=== PATIENT | female | born 1950 | race Caucasian/White ===

== ENCOUNTER 2019-03-31 12:29 | Inpatient (IN) | payer MEDICAID, OTHER ==
[~2019-03-31] VITALS: Ht 175.3 cm; Wt 85.7 kg
[~2019-03-31 12:29] MED LIST: ACET325T9 PO; CALC-450 PO; CHOL100014 PO; DABI150C PO; DOCU-109 PO; FAMO-63 PO; LEVO50TA PO; LEVO750T31 PO; METO25TA4 PO; RISP4TAB PO
[2019-03-31 13:27] LABS: BASO % 0 % (0-3); EOS # 0.1 x10^3/uL (0.0-0.7); EOS % 1 % (0-3); HEMATOCRIT 35.2 % (36.0-47.0); HEMOGLOBIN 12.1 g/dL (12.0-15.5); LYMPH # 1.6 x10^3/uL (1.0-4.8); LYMPH % 21 % (24-48); MEAN CORPUSCULAR HEMOGLOBIN 34 pg (25-35); MEAN CORPUSCULAR HGB CONC 35 g/dL (31-37); MEAN CORPUSCULAR VOLUME 97 fL (79-100); MONO # 0.7 x10^3/uL (0.0-1.1); MONO % 9 % (0-9); NEUT # 5.4 x10^3/uL (1.8-7.7); NEUT % 70 % (31-73); PLATELET COUNT 239 x10^3/uL (140-400); RED BLOOD COUNT 3.61 x10^6/uL (3.50-5.40); RED CELL DISTRIBUTION WIDTH 13.2 % (11.5-14.5); WHITE BLOOD COUNT 7.8 x10^3/uL (4.0-11.0)
[2019-03-31] MEDS ORDERED: IPRATRPIUM/ALBUTEROL 0.5/2.5MG 3 ML NEBU. NEB ONE (13:30)
[2019-03-31] MEDS ORDERED: methylPREDNISolone SOD SUCC PF 125 MG/2 ML VIAL. IV ONE (13:30)
--- NOTE | 2019-03-31 13:30 | RAD ---
Single view of the chest. 03/31/2019 12:51 PM Indication: Short of breath. Evaluate for pneumothorax. Comparison chest radiograph April 06, 2016 Findings: No pneumothorax, pleural effusion, or focal consolidative infiltrate is identified. Heart size is within normal limits. Bony thorax is intact. IMPRESSION: No radiographic evidence of acute cardiopulmonary process Electronically signed by: Joshua Bender MD (03/31/2019 1:27 PM) [facility]
[2019-03-31 13:33] LABS: CALCIUM 9.2 mg/dL (8.5-10.1); CREATININE 0.9 mg/dL (0.6-1.0); GFR 62.3; POTASSIUM 4.2 mmol/L (3.5-5.1)
[2019-03-31 13:34] LABS: PROTHROMBIN TIME PATIENT 14.1 SEC (11.7-14.0)
[2019-03-31 13:39] LABS: ALBUMIN 3.7 g/dL (3.4-5.0); ALBUMIN/GLOBULIN RATIO 1.2 (1.0-1.7); TOTAL BILIRUBIN 0.3 mg/dL (0.2-1.0); TOTAL PROTEIN 6.8 g/dL (6.4-8.2)
[2019-03-31] MEDS ORDERED: IOHEXOL 350 MG/ML 100 ML VIAL. IV ONE (14:00)
[2019-03-31] MEDS ORDERED: CONTRAST GIVEN. MC PRN (14:00)
--- NOTE | 2019-03-31 14:08 | EKG ---
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
[2019-03-31] MEDS ORDERED: HEPARIN for IV BOLUS 10,000 UNIT/10 ML VIAL. IV PRN ×2 (14:15)
--- NOTE | 2019-03-31 14:55 | RAD ---
PQRS Compliance Statement: One or more of the following individualized dose reduction techniques were utilized for this examination: 1. Automated exposure control 2. Adjustment of the mA and/or kV according to patient size 3. Use of iterative reconstruction technique CT angiography chest with contrast 03/31/2019 12:51 PM INDICATION: Shortness of breath. History of known DVT. COMPARISON: None available TECHNIQUE: Axial CT images of the chest were obtained after the intravenous administration of nonionic contrast. Coronal and sagittal reformats are provided. Maximum intensity projection images of the thoracic vasculature are provided. FINDINGS: The thyroid gland is normal in appearance. There are no pathologically enlarged axillary, mediastinal or hilar lymph nodes. The heart size is within normal limits. No significant pericardial effusion. Thoracic aorta is normal in course and caliber. There is adequate opacification of the pulmonary arterial system. There there are no filling defects within the pulmonary arterial system to suggest acute or chronic pulmonary embolus. Retroesophageal course of the right common carotid artery is noted. Centrilobular and paraseptal emphysema is noted. Respiratory motion limits evaluation for micronodules. Bronchial wall thickening is compatible with nonspecific bronchitis. There are no suspicious solid noncalcified pulmonary nodules. There are no pulmonary infiltrates. There are no pleural effusions. No pulmonary vascular congestion or pneumothorax. Visualized portions of the upper abdomen are within normal limits. No suspicious osseous lesions are visualized. IMPRESSION: There is no evidence for acute or chronic pulmonary embolism. Mild centrilobular and paraseptal pulmonary emphysema. Electronically signed by: Mignon Romero MD (03/31/2019 2:52 PM) [facility]
[2019-03-31] MEDS ORDERED: DOXYCYCLINE HYCLATE 100 MG in IV DEXTROSE 5% 100ML 100 ML IV ONE (15:15)
[2019-03-31] MEDS: HEPARIN 25,000UTS/500ML PREMIX 500 ML IV PRN (15:35)
[2019-03-31] MEDS ORDERED: HEPARIN for IV BOLUS 10,000 UNIT/10 ML VIAL. IV ONE (15:45)
--- NOTE | 2019-03-31 16:00 | PHYS DOC ---
Past Medical History Past Medical History: A-Fib, Arthritis, COPD, GERD, Hypothyroid, Schizophrenia Past Surgical History: Other Additional Past Surgical Histo: cataracts, unknown sx Alcohol Use: None Drug Use: None Adult General Chief Complaint Chief Complaint: SHORTNESS OF BREATH HPI HPI Patient is a 68 year old f with cc of present with chief complaint of leg swelling and shortness of breath patient was recently diagnosed with a DVT at her nursing facility I had the ultrasound report sent by the staff over there it shows a deep vein thrombosis involving the left posterior tibial vein dated March 31, 2019 at 11:19 AM this was just done so I did not repeat it. Patient also short of breath does have a history of COPD but shortness of breath increased over the last 24-hour she tells me she is coughing history is somewhat limited by the underlying schizophrenia she is coming from [facility] denies chest pain or fever symptoms are slowly worsening with time worse with exertion she tells me Review of Systems Review of Systems Constitutional: Denies fever or chills [] Eyes: Denies change in visual acuity, redness, or eye pain [] HENT: Fernando GI: Denies abdominal pain, nausea, vomiting, bloody stools or diarrhea [] : Denies dysuria or hematuria [] Musculoskeletal: Denies back pain or joint pain [] Integument: Denies rash or skin lesions [] Neurologic: Denies headache, focal weakness or sensory changes [] All other systems were reviewed and found to be within normal limits, except as documented in this note. Current Medications Current Medications Current Medications Medications (Trade) Dose Ordered Sig/Cindy Start Time Stop Time Status Last Admin Dose Admin Albuterol/ Ipratropium (Duoneb) 3 ml RTQID 03/31/19 16:00 04/01/19 15:59 Doxycycline Hyclate 100 mg/ Dextrose 100 ml @ 50 mls/hr 1X ONCE 03/31/19 15:15 03/31/19 17:14 Heparin Sodium (Porcine) (Heparin Sodium) 6,300 unit 1X ONCE 03/31/19 15:45 03/31/19 15:46 DC 03/31/19 15:37 6,300 UNIT Heparin Sodium/ Dextrose 500 ml @ 25.1 mls/hr CONT PRN 03/31/19 14:15 03/31/19 15:37 25.1 MLS/HR Info (CONTRAST GIVEN -- Rx MONITORING) 1 each PRN DAILY PRN 03/31/19 14:00 04/02/19 13:59 Iohexol (Omnipaque 350 Mg/ml) 100 ml 1X ONCE 03/31/19 14:00 03/31/19 14:01 DC 03/31/19 14:02 100 ML Methylprednisolone Sodium Succinate (SOLU-Medrol 125MG VIAL) 125 mg 1X ONCE 03/31/19 13:30 03/31/19 13:31 DC 03/31/19 13:16 125 MG Allergies Allergies Allergies Coded Allergies Type Severity Reaction Last Updated Verified clozapine Allergy Severe 04/06/16 Yes Physical Exam Physical Exam Constitutional: Well developed, well nourished, mild distress HENT: Normocephalic, atraumatic, bilateral external ears normal, oropharynx moist, no oral exudates, nose normal. [] Eyes: PERRLA, EOMI, conjunctiva normal, no discharge. [] Neck: Normal range of motion, no tenderness, supple, no stridor. [] Cardiovascular: Irregular with mild tachycardia no definite murmurs Lungs & Thorax: Diffuse wheezing bilaterally patient is speaking short sentences Abdomen: Bowel sounds normal, soft, no tenderness, no masses, no pulsatile masses. [] Skin: Warm, dry, no erythema, no rash. [] Back: No tenderness, no CVA tenderness. [] Extremities: No tenderness, no cyanosis, no clubbing, ROM intact, left greater than right lower extremity edema Neurologic: Alert and oriented X 3, normal motor function, normal sensory function, no focal deficits noted. [] Psychologic: AFFECT Current Patient Data Vital Signs Vital Signs Date Time Temp Pulse Resp B/P (MAP) Pulse Ox O2 Delivery O2 Flow Rate FiO2 03/31/19 13:41 97 Room Air 03/31/19 12:30 98.1 105 24 164/99 (120) 98.1 Lab Values Laboratory Tests Test 03/31/19 13:02 White Blood Count 7.8 x10^3/uL (4.0-11.0) Red Blood Count 3.61 x10^6/uL (3.50-5.40) Hemoglobin 12.1 g/dL (12.0-15.5) Hematocrit 35.2 % (36.0-47.0) L Mean Corpuscular Volume 97 fL (79-100) Mean Corpuscular Hemoglobin 34 pg (25-35) Mean Corpuscular Hemoglobin Concent 35 g/dL (31-37) Red Cell Distribution Width 13.2 % (11.5-14.5) Platelet Count 239 x10^3/uL (140-400) Neutrophils (%) (Auto) 70 % (31-73) Lymphocytes (%) (Auto) 21 % (24-48) L Monocytes (%) (Auto) 9 % (0-9) Eosinophils (%) (Auto) 1 % (0-3) Basophils (%) (Auto) 0 % (0-3) Neutrophils # (Auto) 5.4 x10^3/uL (1.8-7.7) Lymphocytes # (Auto) 1.6 x10^3/uL (1.0-4.8) Monocytes # (Auto) 0.7 x10^3/uL (0.0-1.1) Eosinophils # (Auto) 0.1 x10^3/uL (0.0-0.7) Basophils # (Auto) 0.0 x10^3/uL (0.0-0.2) Prothrombin Time 14.1 SEC (11.7-14.0) H Prothrombin Time INR 1.1 (0.8-1.1) Sodium Level 132 mmol/L (136-145) L Potassium Level 4.2 mmol/L (3.5-5.1) Chloride Level 95 mmol/L (98-107) L Carbon Dioxide Level 29 mmol/L (21-32) Anion Gap 8 (6-14) Blood Urea Nitrogen 10 mg/dL (7-20) Creatinine 0.9 mg/dL (0.6-1.0) Estimated GFR (Cockcroft-Gault) 62.3 BUN/Creatinine Ratio 11 (6-20) Glucose Level 134 mg/dL (70-99) H Calcium Level 9.2 mg/dL (8.5-10.1) Total Bilirubin 0.3 mg/dL (0.2-1.0) Aspartate Amino Transferase (AST) 21 U/L (15-37) Alanine Aminotransferase (ALT) 31 U/L (14-59) Alkaline Phosphatase 137 U/L (46-116) H Troponin I Quantitative < 0.017 ng/mL (0.000-0.055) CE-Chr-S-Type Natriuretic Peptide 149 pg/mL (0-124) H Total Protein 6.8 g/dL (6.4-8.2) Albumin 3.7 g/dL (3.4-5.0) Albumin/Globulin Ratio 1.2 (1.0-1.7) Laboratory Tests 03/31/19 13:02 Laboratory Tests 03/31/19 13:02 EKG EKG []EKG shows a A. fib most likely rate of 96 somewhat poor baseline no obvious ischemic changes were noted QTC 453 Radiology/Procedures Radiology/Procedures IMPRESSION: There is no evidence for acute or chronic pulmonary embolism. Mild centrilobular and paraseptal pulmonary emphysema. Electronically signed by: Marvin Bui MD (03/31/2019 2:52 PM) [facility] DICTATED and SIGNED BY: MARVIN BUI MD DATE: 03/31/19 1458 [] Impressions: CT scan was negative for pulmonary embolism Course & Med Decision Making Course & Med Decision Making Pertinent Labs and Imaging studies reviewed. (See chart for details) []68-year-old female presenting with shortness of breath history of COPD patient did have wheezing on examination we treated that she was somewhat improved stable on room air oxygenation did have mild atrial fibrillation with RVR but on reevaluation that actually was improved down to about 100 101 low 100s without treatment. Did have a DVT on exam and by ultrasound diagnosed earlier today we did a CT scan quite readily in the emergency room I had high concern for pulmonary embolism but that was negative acute. Patient is placed on a heparin drip anyway to treat the DVT and will be admitted to the service of Dr. zurita discussed case with him at the time of pending CT scan. Dragon Disclaimer Dragon Disclaimer This electronic medical record was generated, in whole or in part, using a voice recognition dictation system. Departure Departure Impression: Primary Impression: Atrial fibrillation with RVR Additional Impressions: Chronic obstructive airway disease Deep venous thrombosis Disposition: ADMITTED INPATIENT Admitting Physician: FAROOQ Condition: STABLE Referrals: REID SHAW MD (PCP) Problem Qualifiers CECILY BEE MD Mar 31, 2019 16:00
[2019-03-31] MEDS: IPRATRPIUM/ALBUTEROL 0.5/2.5MG 3 ML NEBU. NEB SCH ×2 (16:31→19:55)
--- NOTE | 2019-03-31 19:29 | HP ---
ADMIT DATE: 03/31/2019 CHIEF COMPLAINT: Shortness of breath. HISTORY OF PRESENT ILLNESS: The patient is a pleasant 68-year-old female who presented to the ER with shortness of breath. She also has some leg swelling. She was recently diagnosed with a DVT at her facility. She [facility] in a detention. She does have a history of COPD and schizophrenia. While in the ER, she was noted to be in AFib with RVR and COPD exacerbation and we are going to admit the patient and consult Cardiology and Pulmonary. PAST MEDICAL HISTORY: Schizophrenia, atrial fibrillation, arthritis, COPD, GERD, hypothyroid, and cataracts. ALLERGIES: CLOZAPINE. FAMILY HISTORY: Diabetes. SOCIAL HISTORY: She does not drink, smoke or take drugs. She lives at a facility. MEDICATIONS: Reviewed, please refer to the MRAD. REVIEW OF SYSTEMS: GENERAL: No history of weight change, weakness or fevers. SKIN: No bruising, hair changes or rashes. EYES: No blurred, double or loss of vision. NOSE AND THROAT: No history of nosebleeds, hoarseness or sore throat. HEART: No history of palpitations, chest pain or shortness of breath on exertion. LUNGS: She complains of shortness of breath. GASTROINTESTINAL: Denies changes in appetite, nausea, vomiting, diarrhea or constipation. GENITOURINARY: No history of frequency, urgency, hesitancy or nocturia. NEUROLOGIC: Denies history of numbness, tingling, tremor or weakness. PSYCHIATRIC: No history of panic, anxiety or depression. ENDOCRINE: No history of heat or cold intolerance, polyuria or polydipsia. EXTREMITIES: Denies muscle weakness, joint pain, pain on walking or stiffness. PHYSICAL EXAMINATION: VITALS: Within normal limits and are stable. GENERAL: No apparent distress. Alert and oriented. HEENT: Head is normocephalic, atraumatic, pupils were equally round and reactive to light and accommodation. NECK: Supple, no JVD, no thyromegaly was noted. LUNGS: She has decreased breath sounds and some wheezing. HEART: RRR, S1, S2 present. Peripheral pulses intact, no obvious murmurs were noted. ABDOMEN: Soft, nontender. Positive bowel sounds no organomegaly, normal bowel sounds. EXTREMITIES: Without any cyanosis, clubbing, or edema. Pedal pulses intact, Homans sign is negative. NEUROLOGIC: Normal speech, normal tone. A & O x3, moves all extremities, no obvious focal deficits. PSYCHIATRIC: Normal affect, normal mood. Stable. SKIN: No ulcerations or rashes, good skin turgor, no jaundice. VASCULAR: Good capillary refill, neurovascular bundle appears to be intact. LABORATORY DATA: White count is normal. Sodium is 132. Troponin is 0. BNP 149. CT of the chest shows no PE, but they do mention some COPD. Chest x-ray shows no acute disease, but clinically she seems to have pneumonia. EKG shows AFib with RVR. ASSESSMENT AND PLAN: Atrial fibrillation with rapid ventricular rate with, chronic obstructive pulmonary disease, possible clinical pneumonia, and deep vein thrombosis. The patient has been admitted. We will consult Pulmonary and Cardiology. Continue her home meds, cardiac monitoring, serial enzymes, and serial EKGs. Deep vein thrombosis prophylaxis. Full code. CARLOS A GONZALEZ DO DR: [id number]/cruzito JOB#: [id number] / [id number]
[2019-03-31] MEDS ORDERED: dilTIAZem INJ 125 MG in IV DEXTROSE 5% 100ML 100 ML IV STA (19:33)
[2019-03-31] MEDS ORDERED: dilTIAZem IV PUSH 25 MG/5 ML VIAL IVP ONE (19:45)
[2019-03-31 21:04] VITALS: BP 152/84
[2019-03-31] MEDS ORDERED: RISP3TAB23 PO (22:01)
[2019-03-31] MEDS ORDERED: MULT1TAB52 PO (22:08)
[2019-03-31] MEDS ORDERED: [UNRECOGNIZED DRUG - CODE] PO (22:08)
[2019-03-31 23:13] VITALS: BP 122/68
[2019-04-01] VITALS (11 sets, daily range): BP systolic 92–179; BP diastolic 51–93
[2019-04-01] MEDS ORDERED: DOCUSATE SODIUM 100 MG CAPSULE. PO PRN (00:30)
[2019-04-01] MEDS: risperiDONE 1 MG TABLET. PO SCH ×3 (00:36→21:11)
[2019-04-01] MEDS: LEVOTHYROXINE 50 MCG TABLET PO SCH ×2 (00:36→21:10)
[2019-04-01] MEDS: FAMOTIDINE 20 MG TABLET. PO SCH ×2 (00:36→21:10)
--- NOTE | 2019-04-01 05:35 | NUR ---
Patient arrived to unit around 2054 accompanied by ED nurse. Patient reports no pain at this time. Resting comfortably on RA. Assessment complete- patient does have an audible wheeze on expiration in all lobes, patient stated that this has been going on for a couple days. VS stable. Call light in reach. Bed in low locked position, will continue to monitor.
[2019-04-01] MEDS: IPRATRPIUM/ALBUTEROL 0.5/2.5MG 3 ML NEBU. NEB SCH ×3 (07:31→19:57)
--- NOTE | 2019-04-01 08:09 | NUR ---
Chart review done. Spoke w/ nsg who indicated pt not appropriate today due to DVT but may benefit from PT/OT Eval and Treat when medically appropriate. Addendum: 04/01/19 at 0810 by SHALOM BUITRAGO OT Amended: Links added.
[2019-04-01] MEDS: MULTIVITAMIN with MINERAL TABLET. PO SCH (09:00)
[2019-04-01] MEDS: ACETAMINOPHEN 325 MG TABLET. PO PRN ×2 (09:00→23:30)
[2019-04-01] MEDS: CHOLECALCIFEROL (VITAMIN D3) 1,000 UNIT TABLET PO SCH (09:01)
[2019-04-01] MEDS: CALCIUM CARB/VIT D3 500/200 TABLET. PO SCH ×3 (09:01→16:29)
--- NOTE | 2019-04-01 10:28 | PDOC2 ---
NATALIE SCHMIDT SAFETY INVESTIGATOR 04/01/19 1028: CARDIAC CONSULT DATE OF CONSULT Date of Consult DATE: 04/01/19 TIME: 10:13 REASON FOR CONSULT Reason for Consult: AFIB with RVR REFERRING PHYSICIAN Referring Physician: Dr. Lance SOURCE Source: Chart review, Patient HISTORY OF PRESENT ILLNESS HISTORY OF PRESENT ILLNESS This is a 68 yo female who presented from nursing facility secondary to shortness of breath and leg swelling with diagnosis of DVT involving the left posterior tibial vein yesterday. Patient is a poor historian and denies any shortness of breath. States that she cut the circulation off in her left and ca used a blood clot. Does have a history AFIB. Per med list, is on metoprolol 12.5 mg BID and has PRN Cardizem CD 120mg. Also on Pradaxa. Unclear if she has been taking her medications recently. Denies any chest pain, palpitations, dizziness, diaphoresis, or nausea/vomiting. PAST MEDICAL HISTORY Cardiovascular: AFIB Pulmonary: COPD GI: GERD Psych: Schizophrenia Musculoskeletal: Osteoarthritis Endocrine: Hyperthyroidism PAST SURGICAL HISTORY Past Surgical History: No pertinent history SOCIAL HISTORY Smoke: No ALCOHOL: none Drugs: None Lives: [facility] CURRENT MEDICATIONS CURRENT MEDICATIONS Current Medications Medications (Trade) Dose Ordered Sig/Cindy Route PRN Reason Start Time Stop Time Status Last Admin Dose Admin Albuterol/ Ipratropium (Duoneb) 3 ml 1X ONCE NEB 03/31/19 13:30 03/31/19 13:31 DC 03/31/19 13:39 Methylprednisolone Sodium Succinate (SOLU-Medrol 125MG VIAL) 125 mg 1X ONCE IV 03/31/19 13:30 03/31/19 13:31 DC 03/31/19 13:16 Iohexol (Omnipaque 350 Mg/ml) 100 ml 1X ONCE IV 03/31/19 14:00 03/31/19 14:01 DC 03/31/19 14:02 Heparin Sodium/ Dextrose 500 ml @ 25.1 mls/hr CONT PRN IV SEE COMMENTS 03/31/19 14:15 03/31/19 15:37 Heparin Sodium (Porcine) (Heparin Sodium) 6,300 unit 1X ONCE IV 03/31/19 15:45 03/31/19 15:46 DC 03/31/19 15:37 Doxycycline Hyclate 100 mg/ Dextrose 100 ml @ 50 mls/hr 1X ONCE IV 03/31/19 15:15 03/31/19 17:14 DC 03/31/19 15:58 Albuterol/ Ipratropium (Duoneb) 3 ml RTQID NEB 03/31/19 16:00 04/01/19 15:59 04/01/19 07:31 Diltiazem HCl (Cardizem Iv Push) 20 mg 1X ONCE IVP 03/31/19 19:45 03/31/19 19:46 DC 03/31/19 19:49 Diltiazem HCl 125 mg/Dextrose 125 ml @ 5 mls/hr TITRATE STAT IV 03/31/19 19:33 04/01/19 20:32 03/31/19 20:26 Acetaminophen (Tylenol) 650 mg PRN Q6HRS PRN PO MILD PAIN 1-3 04/01/19 00:30 04/01/19 09:03 Famotidine (Pepcid) 20 mg HS PO 04/01/19 01:00 04/01/19 00:37 Levothyroxine Sodium (Synthroid) 50 mcg HS PO 04/01/19 01:00 04/01/19 00:37 Calcium/Vitamin D (Oscal D 500mg/ 200uts) 1 tab TIDWMEALS PO 04/01/19 08:00 04/01/19 09:03 Vitamin D (Vitamin D3) 1,000 unit DAILY PO 04/01/19 09:00 04/01/19 09:03 Multivitamins (Thera M Plus) 1 tab DAILY PO 04/01/19 09:00 04/01/19 09:03 Risperidone (RisperDAL) 3 mg BID PO 04/01/19 01:00 04/01/19 09:03 ALLERGIES ALLERGIES: Coded Allergies: clozapine (Verified Allergy, Severe, 04/06/16) ROS Review of System 14 point ROS conducted with pertinent positives noted above in HPI. PHYSICAL EXAM General: Alert, Cooperative, No acute distress HEENT: Atraumatic, Mucous membr. moist/pink Lungs: Clear to auscultation, Other (diminished bases) Heart: Regular rate, Normal S1, Normal S2 Abdomen: Soft, No tenderness Extremities: No edema, Normal pulses Skin: No breakdown, No significant lesion Neuro: Normal speech, Sensation intact Psych/Mental Status: Mood NL MUSCULOSKELETAL: Osteoarthritic changes both hands VITALS/I&O VITALS/I&O: Vital Signs Date Time Temp Pulse Resp B/P (MAP) Pulse Ox O2 Delivery O2 Flow Rate FiO2 04/01/19 07:33 95 Room Air 04/01/19 07:00 98.0 92 20 119/68 (85) 98.0 I & O 03/31/19 03/31/19 04/01/19 15:00 23:00 07:00 Intake Total 100 ml 1820 ml Output Total 550 ml 850 ml Balance -450 ml 970 ml LABS Lab: Laboratory Tests Test 03/31/19 13:02 04/01/19 08:00 White Blood Count 7.8 x10^3/uL (4.0-11.0) Red Blood Count 3.61 x10^6/uL (3.50-5.40) Hemoglobin 12.1 g/dL (12.0-15.5) Hematocrit 35.2 % (36.0-47.0) L Mean Corpuscular Volume 97 fL (79-100) Mean Corpuscular Hemoglobin 34 pg (25-35) Mean Corpuscular Hemoglobin Concent 35 g/dL (31-37) Red Cell Distribution Width 13.2 % (11.5-14.5) Platelet Count 239 x10^3/uL (140-400) Neutrophils (%) (Auto) 70 % (31-73) Lymphocytes (%) (Auto) 21 % (24-48) L Monocytes (%) (Auto) 9 % (0-9) Eosinophils (%) (Auto) 1 % (0-3) Basophils (%) (Auto) 0 % (0-3) Neutrophils # (Auto) 5.4 x10^3/uL (1.8-7.7) Lymphocytes # (Auto) 1.6 x10^3/uL (1.0-4.8) Monocytes # (Auto) 0.7 x10^3/uL (0.0-1.1) Eosinophils # (Auto) 0.1 x10^3/uL (0.0-0.7) Basophils # (Auto) 0.0 x10^3/uL (0.0-0.2) Prothrombin Time 14.1 SEC (11.7-14.0) H Prothrombin Time INR 1.1 (0.8-1.1) Sodium Level 132 mmol/L (136-145) L Potassium Level 4.2 mmol/L (3.5-5.1) Chloride Level 95 mmol/L (98-107) L Carbon Dioxide Level 29 mmol/L (21-32) Anion Gap 8 (6-14) Blood Urea Nitrogen 10 mg/dL (7-20) Creatinine 0.9 mg/dL (0.6-1.0) Estimated GFR (Cockcroft-Gault) 62.3 BUN/Creatinine Ratio 11 (6-20) Glucose Level 134 mg/dL (70-99) H Calcium Level 9.2 mg/dL (8.5-10.1) Total Bilirubin 0.3 mg/dL (0.2-1.0) Aspartate Amino Transferase (AST) 21 U/L (15-37) Alanine Aminotransferase (ALT) 31 U/L (14-59) Alkaline Phosphatase 137 U/L (46-116) H Troponin I Quantitative < 0.017 ng/mL (0.000-0.055) GR-Bdz-Q-Type Natriuretic Peptide 149 pg/mL (0-124) H Total Protein 6.8 g/dL (6.4-8.2) Albumin 3.7 g/dL (3.4-5.0) Albumin/Globulin Ratio 1.2 (1.0-1.7) Heparin Anti-Xa Act, Unfractionated 1.03 IU/mL (0.30-0.70) H Laboratory Tests 03/31/19 13:02 Laboratory Tests 03/31/19 13:02 ASSESSMENT/PLAN ASSESSMENT/PLAN 1. AFIB with RVR. On Cardizem gtt. On Pradaxa at facility 2. LLE DVT; diagnosed 03/31/19. On heparin gtt. 3. Dyspnea; AFIB with RVR likely contributor. Doubt overt HF. Now resolved 4. COPD 5. Hypothyroidism 5. Schizophrenia Recommendations Resume metoprolol. Increase for better rate control Titrate off Cardizem gtt continue anticoagulation therapy. TSH level Will need to verify with nursing facility that patient has been compliant with medications as she has a DVT reportedly on OAC. Consider warfarin for OAC if patient has been compliant with Pradaxa HARRISON BROCK MD 04/01/19 193: CARDIAC CONSULT ASSESSMENT/PLAN ASSESSMENT/PLAN Patient seen and examined. Agree with above nurse practitioner note. Continue rate control for her atrial fibrillation. We will need to confirm her medication list because if she truly had a DVT on oral anticoagulation she may need further evaluation by hematology. Would not be aggressive given that she is rate controlled and not having any acute problems. Continue supportive care. EF is preserved. Diagnostic specificity for tibial vein DVT is low, will need to confirm from her skilled nursing. NATALIE SCHMIDT APRN Apr 01, 2019 10:28 HARRISON BROCK MD Apr 01, 2019 19:38
--- NOTE | 2019-04-01 11:24 | PDOC ---
PROGRESS NOTES History of Present Illness History of Present Illness ASSESSMENT AND PLAN: Atrial fibrillation with rapid ventricular rate chronic obstructive pulmonary disease, no evidence for acute or chronic pulmonary embolism. Mild centrilobular and paraseptal pulmonary emphysema. admitted. consult Pulmonary consult Cardiology. home meds, cardiac monitoring, serial enzymes, serial EKGs. Deep vein thrombosis prophylaxis. Full code. bronchodilators 37 MIN PT EXAM, CHART REVIEW, > 50% OF TIME SPENT WITH EXAM, CHART REVIEW, PT CARE COORDINATION Vitals Vitals Vital Signs Date Time Temp Pulse Resp B/P (MAP) Pulse Ox O2 Delivery O2 Flow Rate FiO2 04/01/19 11:11 Room Air 04/01/19 07:33 95 04/01/19 07:00 98.0 92 20 119/68 (85) 98.0 Physical Exam Physical Exam GENERAL: No apparent distress. Alert and oriented. HEENT: Head is normocephalic, atraumatic, pupils were equally round and reactive to light and accommodation. NECK: Supple, no JVD, no thyromegaly was noted. LUNGS: She has decreased breath sounds and some wheezing. HEART: RRR, S1, S2 present. Peripheral pulses intact, no obvious murmurs were noted. ABDOMEN: Soft, nontender. Positive bowel sounds no organomegaly, normal bowel sounds. EXTREMITIES: Without any cyanosis, clubbing, or edema. Pedal pulses intact, Homans sign is negative. NEUROLOGIC: Normal speech, normal tone. A & O x3, moves all extremities, no obvious focal deficits. PSYCHIATRIC: Normal affect, normal mood. Stable. SKIN: No ulcerations or rashes, good skin turgor, no jaundice. VASCULAR: Good capillary refill, neurovascular bundle appears to be intact. General: Alert, Cooperative, No acute distress Lungs: Clear Abdomen: Normal bowel sounds, Soft Extremities: No cyanosis Labs LABS PQRS Compliance Statement: One or more of the following individualized dose reduction techniques were utilized for this examination: 1. Automated exposure control 2. Adjustment of the mA and/or kV according to patient size 3. Use of iterative reconstruction technique CT angiography chest with contrast 03/31/2019 12:51 PM INDICATION: Shortness of breath. History of known DVT. COMPARISON: None available TECHNIQUE: Axial CT images of the chest were obtained after the intravenous administration of nonionic contrast. Coronal and sagittal reformats are provided. Maximum intensity projection images of the thoracic vasculature are provided. FINDINGS: The thyroid gland is normal in appearance. There are no pathologically enlarged axillary, mediastinal or hilar lymph nodes. The heart size is within normal limits. No significant pericardial effusion. Thoracic aorta is normal in course and caliber. There is adequate opacification of the pulmonary arterial system. There there are no filling defects within the pulmonary arterial system to suggest acute or chronic pulmonary embolus. Retroesophageal course of the right common carotid artery is noted. Centrilobular and paraseptal emphysema is noted. Respiratory motion limits evaluation for micronodules. Bronchial wall thickening is compatible with nonspecific bronchitis. There are no suspicious solid noncalcified pulmonary nodules. There are no pulmonary infiltrates. There are no pleural effusions. No pulmonary vascular congestion or pneumothorax. Visualized portions of the upper abdomen are within normal limits. No suspicious osseous lesions are visualized. IMPRESSION: There is no evidence for acute or chronic pulmonary embolism. Mild centrilobular and paraseptal pulmonary emphysema. Electronically signed by: Mignon Romero MD (03/31/2019 2:52 PM) [facility] Laboratory Tests Test 03/31/19 13:02 04/01/19 08:00 White Blood Count 7.8 x10^3/uL (4.0-11.0) Red Blood Count 3.61 x10^6/uL (3.50-5.40) Hemoglobin 12.1 g/dL (12.0-15.5) Hematocrit 35.2 % (36.0-47.0) Mean Corpuscular Volume 97 fL (79-100) Mean Corpuscular Hemoglobin 34 pg (25-35) Mean Corpuscular Hemoglobin Concent 35 g/dL (31-37) Red Cell Distribution Width 13.2 % (11.5-14.5) Platelet Count 239 x10^3/uL (140-400) Neutrophils (%) (Auto) 70 % (31-73) Lymphocytes (%) (Auto) 21 % (24-48) Monocytes (%) (Auto) 9 % (0-9) Eosinophils (%) (Auto) 1 % (0-3) Basophils (%) (Auto) 0 % (0-3) Neutrophils # (Auto) 5.4 x10^3/uL (1.8-7.7) Lymphocytes # (Auto) 1.6 x10^3/uL (1.0-4.8) Monocytes # (Auto) 0.7 x10^3/uL (0.0-1.1) Eosinophils # (Auto) 0.1 x10^3/uL (0.0-0.7) Basophils # (Auto) 0.0 x10^3/uL (0.0-0.2) Prothrombin Time 14.1 SEC (11.7-14.0) Prothromb Time International Ratio 1.1 (0.8-1.1) Sodium Level 132 mmol/L (136-145) Potassium Level 4.2 mmol/L (3.5-5.1) Chloride Level 95 mmol/L (98-107) Carbon Dioxide Level 29 mmol/L (21-32) Anion Gap 8 (6-14) Blood Urea Nitrogen 10 mg/dL (7-20) Creatinine 0.9 mg/dL (0.6-1.0) Estimated GFR (Cockcroft-Gault) 62.3 BUN/Creatinine Ratio 11 (6-20) Glucose Level 134 mg/dL (70-99) Calcium Level 9.2 mg/dL (8.5-10.1) Total Bilirubin 0.3 mg/dL (0.2-1.0) Aspartate Amino Transf (AST/SGOT) 21 U/L (15-37) Alanine Aminotransferase (ALT/SGPT) 31 U/L (14-59) Alkaline Phosphatase 137 U/L (46-116) Troponin I Quantitative < 0.017 ng/mL (0.000-0.055) GR-Dmo-M-Type Natriuretic Peptide 149 pg/mL (0-124) Total Protein 6.8 g/dL (6.4-8.2) Albumin 3.7 g/dL (3.4-5.0) Albumin/Globulin Ratio 1.2 (1.0-1.7) Heparin Anti-Xa Act, Unfractionated 1.03 IU/mL (0.30-0.70) Thyroid Stimulating Hormone (TSH) 1.592 uIU/mL (0.358-3.74) Assessment and Plan Assessmemt and Plan Problems Medical Problems: (1) Atrial fibrillation with RVR Status: Acute (2) Chronic obstructive airway disease Status: Acute (3) Deep venous thrombosis Status: Acute Comment Review of Relevant I have reviewed the following items [place] (where applicable) has been applied. Labs Laboratory Tests Test 03/31/19 13:02 04/01/19 08:00 White Blood Count 7.8 x10^3/uL (4.0-11.0) Red Blood Count 3.61 x10^6/uL (3.50-5.40) Hemoglobin 12.1 g/dL (12.0-15.5) Hematocrit 35.2 % (36.0-47.0) Mean Corpuscular Volume 97 fL (79-100) Mean Corpuscular Hemoglobin 34 pg (25-35) Mean Corpuscular Hemoglobin Concent 35 g/dL (31-37) Red Cell Distribution Width 13.2 % (11.5-14.5) Platelet Count 239 x10^3/uL (140-400) Neutrophils (%) (Auto) 70 % (31-73) Lymphocytes (%) (Auto) 21 % (24-48) Monocytes (%) (Auto) 9 % (0-9) Eosinophils (%) (Auto) 1 % (0-3) Basophils (%) (Auto) 0 % (0-3) Neutrophils # (Auto) 5.4 x10^3/uL (1.8-7.7) Lymphocytes # (Auto) 1.6 x10^3/uL (1.0-4.8) Monocytes # (Auto) 0.7 x10^3/uL (0.0-1.1) Eosinophils # (Auto) 0.1 x10^3/uL (0.0-0.7) Basophils # (Auto) 0.0 x10^3/uL (0.0-0.2) Prothrombin Time 14.1 SEC (11.7-14.0) Prothromb Time International Ratio 1.1 (0.8-1.1) Sodium Level 132 mmol/L (136-145) Potassium Level 4.2 mmol/L (3.5-5.1) Chloride Level 95 mmol/L (98-107) Carbon Dioxide Level 29 mmol/L (21-32) Anion Gap 8 (6-14) Blood Urea Nitrogen 10 mg/dL (7-20) Creatinine 0.9 mg/dL (0.6-1.0) Estimated GFR (Cockcroft-Gault) 62.3 BUN/Creatinine Ratio 11 (6-20) Glucose Level 134 mg/dL (70-99) Calcium Level 9.2 mg/dL (8.5-10.1) Total Bilirubin 0.3 mg/dL (0.2-1.0) Aspartate Amino Transf (AST/SGOT) 21 U/L (15-37) Alanine Aminotransferase (ALT/SGPT) 31 U/L (14-59) Alkaline Phosphatase 137 U/L (46-116) Troponin I Quantitative < 0.017 ng/mL (0.000-0.055) UU-Afr-R-Type Natriuretic Peptide 149 pg/mL (0-124) Total Protein 6.8 g/dL (6.4-8.2) Albumin 3.7 g/dL (3.4-5.0) Albumin/Globulin Ratio 1.2 (1.0-1.7) Heparin Anti-Xa Act, Unfractionated 1.03 IU/mL (0.30-0.70) Thyroid Stimulating Hormone (TSH) 1.592 uIU/mL (0.358-3.74) Laboratory Tests Test 03/31/19 13:02 04/01/19 08:00 White Blood Count 7.8 x10^3/uL (4.0-11.0) Red Blood Count 3.61 x10^6/uL (3.50-5.40) Hemoglobin 12.1 g/dL (12.0-15.5) Hematocrit 35.2 % (36.0-47.0) Mean Corpuscular Volume 97 fL (79-100) Mean Corpuscular Hemoglobin 34 pg (25-35) Mean Corpuscular Hemoglobin Concent 35 g/dL (31-37) Red Cell Distribution Width 13.2 % (11.5-14.5) Platelet Count 239 x10^3/uL (140-400) Neutrophils (%) (Auto) 70 % (31-73) Lymphocytes (%) (Auto) 21 % (24-48) Monocytes (%) (Auto) 9 % (0-9) Eosinophils (%) (Auto) 1 % (0-3) Basophils (%) (Auto) 0 % (0-3) Neutrophils # (Auto) 5.4 x10^3/uL (1.8-7.7) Lymphocytes # (Auto) 1.6 x10^3/uL (1.0-4.8) Monocytes # (Auto) 0.7 x10^3/uL (0.0-1.1) Eosinophils # (Auto) 0.1 x10^3/uL (0.0-0.7) Basophils # (Auto) 0.0 x10^3/uL (0.0-0.2) Prothrombin Time 14.1 SEC (11.7-14.0) Prothromb Time International Ratio 1.1 (0.8-1.1) Sodium Level 132 mmol/L (136-145) Potassium Level 4.2 mmol/L (3.5-5.1) Chloride Level 95 mmol/L (98-107) Carbon Dioxide Level 29 mmol/L (21-32) Anion Gap 8 (6-14) Blood Urea Nitrogen 10 mg/dL (7-20) Creatinine 0.9 mg/dL (0.6-1.0) Estimated GFR (Cockcroft-Gault) 62.3 BUN/Creatinine Ratio 11 (6-20) Glucose Level 134 mg/dL (70-99) Calcium Level 9.2 mg/dL (8.5-10.1) Total Bilirubin 0.3 mg/dL (0.2-1.0) Aspartate Amino Transf (AST/SGOT) 21 U/L (15-37) Alanine Aminotransferase (ALT/SGPT) 31 U/L (14-59) Alkaline Phosphatase 137 U/L (46-116) Troponin I Quantitative < 0.017 ng/mL (0.000-0.055) NA-Orf-J-Type Natriuretic Peptide 149 pg/mL (0-124) Total Protein 6.8 g/dL (6.4-8.2) Albumin 3.7 g/dL (3.4-5.0) Albumin/Globulin Ratio 1.2 (1.0-1.7) Heparin Anti-Xa Act, Unfractionated 1.03 IU/mL (0.30-0.70) Thyroid Stimulating Hormone (TSH) 1.592 uIU/mL (0.358-3.74) Medications Current Medications Albuterol/ Ipratropium (Duoneb) 3 ml 1X ONCE NEB Last administered on 03/31/19at 13:39; Start 03/31/19 at 13:30; Stop 03/31/19 at 13:31; Status DC Methylprednisolone Sodium Succinate (SOLU-Medrol 125MG VIAL) 125 mg 1X ONCE IV Last administered on 03/31/19at 13:16; Start 03/31/19 at 13:30; Stop 03/31/19 at 13:31; Status DC Iohexol (Omnipaque 350 Mg/ml) 100 ml 1X ONCE IV Last administered on 03/31/19at 14:02; Start 03/31/19 at 14:00; Stop 03/31/19 at 14:01; Status DC Info (CONTRAST GIVEN -- Rx MONITORING) 1 each PRN DAILY PRN MC SEE COMMENTS; Start 03/31/19 at 14:00; Stop 04/02/19 at 13:59 Heparin Sodium/ Dextrose 500 ml @ 25.1 mls/hr CONT PRN IV SEE COMMENTS Last administered on 03/31/19at 15:37; Start 03/31/19 at 14:15 Heparin Sodium (Porcine) (Heparin Sodium) 2,350 unit PRN Q6HRS PRN IV FOR UFH LEVEL LESS THAN 0.2; Start 03/31/19 at 14:15 Heparin Sodium (Porcine) (Heparin Sodium) 1,200 unit PRN Q6HRS PRN IV FOR UFH LEVEL 0.2 - 0.29; Start 03/31/19 at 14:15 Heparin Sodium (Porcine) (Heparin Sodium) 6,300 unit 1X ONCE IV Last administered on 03/31/19at 15:37; Start 03/31/19 at 15:45; Stop 03/31/19 at 15:46; Status DC Doxycycline Hyclate 100 mg/ Dextrose 100 ml @ 50 mls/hr 1X ONCE IV Last administered on 03/31/19at 15:58; Start 03/31/19 at 15:15; Stop 03/31/19 at 17:14; Status DC Albuterol/ Ipratropium (Duoneb) 3 ml RTQID NEB Last administered on 04/01/19at 11:11; Start 03/31/19 at 16:00; Stop 04/01/19 at 15:59 Diltiazem HCl (Cardizem Iv Push) 20 mg 1X ONCE IVP Last administered on 03/31/19at 19:49; Start 03/31/19 at 19:45; Stop 03/31/19 at 19:46; Status DC Diltiazem HCl 125 mg/Dextrose 125 ml @ 5 mls/hr TITRATE STAT IV Last administered on 03/31/19 20:26; Start 03/31/19 at 19:33; Stop 04/01/19 at 20:32 Acetaminophen (Tylenol) 650 mg PRN Q6HRS PRN PO MILD PAIN 1-3 Last administered on 04/01/19 09:03; Start 04/01/19 at 00:30 Docusate Sodium (Colace) 200 mg PRN DAILY PRN PO CONSTIPATION 1ST CHOICE; Start 04/01/19 at 00:30 Famotidine (Pepcid) 20 mg HS PO Last administered on 04/01/19at 00:37; Start 04/01/19 at 01:00 Levothyroxine Sodium (Synthroid) 50 mcg HS PO Last administered on 04/01/19at 00:37; Start 04/01/19 at 01:00 Calcium/Vitamin D (Oscal D 500mg/ 200uts) 1 tab TIDWMEALS PO Last administered on 04/01/19at 09:03; Start 04/01/19 at 08:00 Vitamin D (Vitamin D3) 1,000 unit DAILY PO Last administered on 04/01/19 09:03; Start 04/01/19 at 09:00 Multivitamins (Thera M Plus) 1 tab DAILY PO Last administered on 04/01/19 09:03; Start 04/01/19 at 09:00 Risperidone (RisperDAL) 3 mg BID PO Last administered on 04/01/19at 09:03; Start 04/01/19 at 01:00 Metoprolol Tartrate (Lopressor) 50 mg BID PO ; Start 04/01/19 at 10:45 Active Scripts Active Reported Multivitamins (Multivitamin) 1 Each Tablet 1 Tab PO DAILY Taztia Xt (Diltiazem Hcl) 120 Mg Capsule.er 120 Mg PO DAILY PRN Risperdal (Risperidone) 3 Mg Tablet 3 Mg PO BID PRN Synthroid (Levothyroxine Sodium) 50 Mcg Tablet 50 Mcg PO HS Pradaxa (Dabigatran Etexilate Mesylate) 150 Mg Capsule 1 Cap PO BID Pepcid (Famotidine) 20 Mg Tablet 20 Mg PO HS Metoprolol Tartrate 25 Mg Tablet 12.5 Mg PO BID Colace (Docusate Sodium) 100 Mg Capsule 200 Mg PO PRN DAILY PRN Vitamin D3 (Cholecalciferol (Vitamin D3)) 1,000 Unit Capsule 1,000 Unit PO DAILY Caltrate 600 + D Soft Chew Tab (Calcium Carbonate/Vitamin D3) 1 Each Tab.chew 1 Each PO TID Tylenol (Acetaminophen) 325 Mg Tablet 650 Mg PO PRN Q6HRS PRN Vitals/I & O Vital Sign - Last 24 Hours 03/31/19 03/31/19 03/31/19 03/31/19 12:30 13:06 13:33 13:41 Temp 98.1 98.1 Pulse 105 104 102 Resp 24 20 20 B/P (MAP) 164/99 (120) 150/89 (109) 159/101 (120) Pulse Ox 97 98 98 97 O2 Delivery Room Air Room Air Room Air 03/31/19 03/31/19 03/31/19 03/31/19 15:00 16:31 17:00 18:00 Pulse 94 97 103 Resp 20 18 18 B/P (MAP) 153/100 (117) 172/94 (120) 169/81 (110) Pulse Ox 98 95 97 97 O2 Delivery Room Air Room Air Room Air 03/31/19 03/31/19 03/31/19 03/31/19 18:37 19:10 19:37 19:49 Pulse 110 139 84 117 Resp 20 20 20 B/P (MAP) 151/107 (122) 174/76 (108) 159/94 (115) 159/94 Pulse Ox 97 98 95 O2 Delivery Room Air Room Air Room Air 03/31/19 03/31/19 03/31/19 03/31/19 19:55 20:07 20:40 20:55 Pulse 92 98 Resp 20 20 B/P (MAP) 136/64 (88) 141/89 (106) Pulse Ox 93 95 96 O2 Delivery Room Air Room Air Room Air Room Air 03/31/19 03/31/19 04/01/19 04/01/19 21:04 23:13 03:21 07:00 Temp 98.2 98.8 98.5 98.0 98.2 98.8 98.5 98.0 Pulse 109 104 96 92 Resp 16 16 16 20 B/P (MAP) 152/84 (106) 122/68 (86) 119/61 (80) 119/68 (85) Pulse Ox 93 94 91 91 O2 Delivery Room Air Room Air Room Air Room Air 04/01/19 04/01/19 07:33 11:11 Pulse Ox 95 O2 Delivery Room Air Room Air Intake and Output 03/31/19 03/31/19 04/01/19 15:00 23:00 07:00 Intake Total 100 ml 1820 ml Output Total 550 ml 850 ml Balance -450 ml 970 ml MARGARET MCCARTHY MD Apr 01, 2019 11:24
[2019-04-01] MEDS: METOPROLOL TART IMMED RELEASE 50 MG TABLET. PO SCH ×2 (11:52→21:10)
[2019-04-01] MEDS: HEPARIN 25,000UTS/500ML PREMIX 500 ML IV PRN (11:56)
--- NOTE | 2019-04-01 12:29 | CONS ---
DATE OF CONSULTATION: PULMONARY CONSULTATION ATTENDING PHYSICIAN: Doron Lance MD REASON FOR CONSULTATION: COPD. HISTORY OF PRESENT ILLNESS: The patient is a 68 years old who has history of schizophrenia. She came into the hospital with atrial fibrillation with rapid ventricular response. She had some mild dyspnea. She feels much better now. She is on room air. According to the notes, she was diagnosed recently at her facility with a DVT. Currently, she is on Cardizem and also on anticoagulation for atrial fibrillation. I reviewed the patient's CT angiogram. There was no evidence of any pulmonary embolism. There was evidence of emphysema and no other parenchymal infiltrates were seen. PAST MEDICAL HISTORY: Significant for history of schizophrenia, history of atrial fibrillation, COPD, GERD, hypothyroidism and cataract surgery and DVT per H and P from Dr. Lance. ALLERGIES: CLOZAPINE. FAMILY HISTORY: Diabetes. SOCIAL HISTORY: Smoked about 6 cigarettes a day. She lives at the facility. MEDICATIONS: Reviewed as listed in the MRAD including Cardizem drip and she is on heparin drip as well. Her medication from her skilled care facility were reviewed as well and she is on Pradaxa over there. REVIEW OF SYSTEMS: Ten-point system obtained. Pertinent positives discussed in my history of present illness, otherwise noncontributory. All systems that were negative were reviewed as well. PHYSICAL EXAMINATION: VITAL SIGNS: Reviewed. Her pulse is irregular, AFib. Rate in one-teens. Afebrile, pulse ox 94% on room air. NECK: Supple. LUNGS: With occasional wheeze. CARDIOVASCULAR: With irregular rate. ABDOMEN: Soft. EXTREMITIES: With no pitting edema. LABORATORY DATA: Reviewed. White cell count 7.8, hemoglobin 12.1. BUN and creatinine 10 and 0.9. IMPRESSION: 1. Dyspnea secondary to atrial fibrillation with rapid ventricular response. Still in atrial fibrillation with rapid ventricular response. On a Cardizem drip and heparin. 2. Chronic obstructive pulmonary disease. We will clinically compensated. Unknown FEV1 and unknown duration of tobacco use. 3. Reportedly, history of deep vein thrombosis at her facility. Was on Pradaxa before coming to the hospital, now on heparin. We will get the records. RECOMMENDATIONS: 1. Pulmonary status seems to be stable. We would recommend to continue present bronchodilators with DuoNebs. 2. Heparin and Cardizem per Cardiology. 3. Once she is off heparin, she can be back on Pradaxa. 4. We will obtain records of her prior DVT history. 5. Discussed with RN. We will follow along with you. DOLORES BEGUM MD DR: KIMO/cruzito JOB#: [id number] / [id number]
--- NOTE | 2019-04-01 14:24 | NUR ---
SS following for discharge planning. SS reviewed pt chart. Pt is from [facility], ; fax [phone]. SS contacted [facility] and verified that pt is a LTC resident from there facility and is able to return when medically stable for discharge. SS will continue to follow for discharge planning.
[2019-04-01] MEDS: ANTI-COAG MONITOR BY PHARMACY. MC PRN (15:53)
[2019-04-02 03:00] VITALS: BP 127/96
[2019-04-02 04:14] LABS: BASO % 1 % (0-3); EOS # 0.1 x10^3/uL (0.0-0.7); EOS % 1 % (0-3); HEMATOCRIT 34.1 % (36.0-47.0); HEMOGLOBIN 11.7 g/dL (12.0-15.5); LYMPH # 2.3 x10^3/uL (1.0-4.8); LYMPH % 22 % (24-48); MEAN CORPUSCULAR HEMOGLOBIN 34 pg (25-35); MEAN CORPUSCULAR HGB CONC 34 g/dL (31-37); MEAN CORPUSCULAR VOLUME 99 fL (79-100); MONO # 0.7 x10^3/uL (0.0-1.1); MONO % 6 % (0-9); NEUT # 7.3 x10^3/uL (1.8-7.7); NEUT % 71 % (31-73); PLATELET COUNT 264 x10^3/uL (140-400); RED BLOOD COUNT 3.46 x10^6/uL (3.50-5.40); RED CELL DISTRIBUTION WIDTH 13.2 % (11.5-14.5); WHITE BLOOD COUNT 10.3 x10^3/uL (4.0-11.0)
[2019-04-02 05:02] LABS: ALBUMIN 3.3 g/dL (3.4-5.0); CALCIUM 8.7 mg/dL (8.5-10.1); CREATININE 0.8 mg/dL (0.6-1.0); GFR 71.3; POTASSIUM 3.9 mmol/L (3.5-5.1); TOTAL BILIRUBIN 0.2 mg/dL (0.2-1.0); TOTAL PROTEIN 6.6 g/dL (6.4-8.2)
[2019-04-02 07:00] VITALS: BP 167/85
[2019-04-02] MEDS: IPRATRPIUM/ALBUTEROL 0.5/2.5MG 3 ML NEBU. NEB SCH ×4 (07:53→20:08)
[2019-04-02] MEDS: CALCIUM CARB/VIT D3 500/200 TABLET. PO SCH ×3 (08:28→17:42)
[2019-04-02] MEDS: METOPROLOL TART IMMED RELEASE 50 MG TABLET. PO SCH (08:30)
[2019-04-02] MEDS: CHOLECALCIFEROL (VITAMIN D3) 1,000 UNIT TABLET PO SCH (08:30)
[2019-04-02] MEDS: MULTIVITAMIN with MINERAL TABLET. PO SCH (08:30)
[2019-04-02] MEDS: risperiDONE 1 MG TABLET. PO SCH ×2 (08:31→21:10)
--- NOTE | 2019-04-02 08:51 | PDOC ---
CARDIO Progress Notes Date and Time Date of Service 04/02/2019 Time of Evaluation 0830 Subjective Subjective: No Chest Pain, No Palpitations, Other (SOA better) Vitals Vitals Vital Signs Date Time Temp Pulse Resp B/P (MAP) Pulse Ox O2 Delivery O2 Flow Rate FiO2 04/02/19 08:31 87 170/77 04/02/19 07:54 96 Room Air 04/02/19 07:00 97.8 20 97.8 Weight Weight [ ] Input and Output Intake and Output Intake and Output 04/02/19 07:00 Intake Total 2060 ml Output Total 3300 ml Balance -1240 ml Intake Oral 2060 ml Output Urine Total 3300 ml # Voids 1 Laboratory Labs Laboratory Tests Test 04/01/19 15:55 04/01/19 21:55 04/02/19 03:55 Heparin Anti-Xa Act, Unfractionated 0.67 IU/mL (0.30-0.70) 0.50 IU/mL (0.30-0.70) 0.49 IU/mL (0.30-0.70) White Blood Count 10.3 x10^3/uL (4.0-11.0) Red Blood Count 3.46 x10^6/uL (3.50-5.40) Hemoglobin 11.7 g/dL (12.0-15.5) Hematocrit 34.1 % (36.0-47.0) Mean Corpuscular Volume 99 fL (79-100) Mean Corpuscular Hemoglobin 34 pg (25-35) Mean Corpuscular Hemoglobin Concent 34 g/dL (31-37) Red Cell Distribution Width 13.2 % (11.5-14.5) Platelet Count 264 x10^3/uL (140-400) Neutrophils (%) (Auto) 71 % (31-73) Lymphocytes (%) (Auto) 22 % (24-48) Monocytes (%) (Auto) 6 % (0-9) Eosinophils (%) (Auto) 1 % (0-3) Basophils (%) (Auto) 1 % (0-3) Neutrophils # (Auto) 7.3 x10^3/uL (1.8-7.7) Lymphocytes # (Auto) 2.3 x10^3/uL (1.0-4.8) Monocytes # (Auto) 0.7 x10^3/uL (0.0-1.1) Eosinophils # (Auto) 0.1 x10^3/uL (0.0-0.7) Basophils # (Auto) 0.0 x10^3/uL (0.0-0.2) Sodium Level 138 mmol/L (136-145) Potassium Level 3.9 mmol/L (3.5-5.1) Chloride Level 101 mmol/L (98-107) Carbon Dioxide Level 30 mmol/L (21-32) Anion Gap 7 (6-14) Blood Urea Nitrogen 13 mg/dL (7-20) Creatinine 0.8 mg/dL (0.6-1.0) Estimated GFR (Cockcroft-Gault) 71.3 BUN/Creatinine Ratio 16 (6-20) Glucose Level 111 mg/dL (70-99) Calcium Level 8.7 mg/dL (8.5-10.1) Total Bilirubin 0.2 mg/dL (0.2-1.0) Aspartate Amino Transf (AST/SGOT) 24 U/L (15-37) Alanine Aminotransferase (ALT/SGPT) 31 U/L (14-59) Alkaline Phosphatase 114 U/L (46-116) Total Protein 6.6 g/dL (6.4-8.2) Albumin 3.3 g/dL (3.4-5.0) Albumin/Globulin Ratio 1.0 (1.0-1.7) Physical Exam HEENT: Neck Supple W Full Motion Chest: Symmetric LUNGS: Other (basilr crackles) Heart: irregularly irregular (AFIB RVR) Abdomen: Soft N/T Extremities: No Calf Tenderness Neurology: alert, oriented, follow commands Assessment Assessment 1. AFIB with RVR. refractory, chronic by hx 2. LLE DVT; diagnosed 03/31/19. On heparin gtt. 3. Dyspnea; AFIB with RVR likely contributor. Doubt overt HF. Now resolved 4. COPD 5. Hypothyroidism 6. Schizophrenia 7. Diastolic CHF: appears compensated Recommendations 1. Continue with metoprolol and will increase per HR and BP trend. Dig IV x1. 2. Start on coumadin therapy, continue heparin drip 3. May need to switch to cardizem if wheezing is an issue. LITTLE PHILLIP APRN Apr 02, 2019 08:51
[2019-04-02] MEDS ORDERED: DIGOXIN IV 500 MCG/2 ML AMPUL. IV ONE (09:00)
--- NOTE | 2019-04-02 09:00 | NUR ---
Pharmacy Warfarin Dosing Note S:Pharmacy consulted to assist with anticoagulation therapy started with target INR: 2 -3 O:ZINA LOWE is a 68 year old F with Atrial Fibrillation DVT/PE LABS: Last INR: 1.1 Last HGB: 11.7 Last HCT: 34.1 Last PLT: 264 Last dose of given on at Previous Regimen: Vitamin K given: Drug Interaction Changes: Ongoing Drug Interactions: A:INR of 1.1 is below desired range. Target range for this patient is: 2 -3 P: Warfarin dose: 5 mg Today at [address] Therapy: Heparin Therapeutic CONT Next INR due TOMORROW. Pharmacy anticoagulation service will continue to follow. ADAMA FOREMAN [facility], 04/02/19 0901
--- NOTE | 2019-04-02 09:06 | PDOC ---
PROGRESS NOTES History of Present Illness History of Present Illness ASSESSMENT AND PLAN: Atrial fibrillation with rapid ventricular rate chronic obstructive pulmonary disease, no evidence for acute or chronic pulmonary embolism. Mild centrilobular and paraseptal pulmonary emphysema. admitted. consult Pulmonary consult Cardiology. home meds, cardiac monitoring, serial enzymes, serial EKGs. Deep vein thrombosis prophylaxis. Full code. bronchodilators 37 MIN PT EXAM, CHART REVIEW, > 50% OF TIME SPENT WITH EXAM, CHART REVIEW, PT CARE COORDINATION Vitals Vitals Vital Signs Date Time Temp Pulse Resp B/P (MAP) Pulse Ox O2 Delivery O2 Flow Rate FiO2 04/02/19 08:58 131 04/02/19 08:31 170/77 04/02/19 07:54 96 Room Air 04/02/19 07:00 97.8 20 97.8 Physical Exam Physical Exam GENERAL: No apparent distress. Alert and oriented. HEENT: Head is normocephalic, atraumatic, pupils were equally round and reactive to light and accommodation. NECK: Supple, no JVD, no thyromegaly was noted. LUNGS: She has decreased breath sounds and some wheezing. HEART: RRR, S1, S2 present. Peripheral pulses intact, no obvious murmurs were noted. ABDOMEN: Soft, nontender. Positive bowel sounds no organomegaly, normal bowel sounds. EXTREMITIES: Without any cyanosis, clubbing, or edema. Pedal pulses intact, Homans sign is negative. NEUROLOGIC: Normal speech, normal tone. A & O x3, moves all extremities, no obvious focal deficits. PSYCHIATRIC: Normal affect, normal mood. Stable. SKIN: No ulcerations or rashes, good skin turgor, no jaundice. VASCULAR: Good capillary refill, neurovascular bundle appears to be intact. General: Alert, Cooperative, No acute distress Heart: Regular rate, Normal S1, Normal S2 Lungs: Clear Abdomen: Soft, No tenderness Extremities: No edema, Normal pulses Skin: No breakdown, No significant lesion Labs LABS PQRS Compliance Statement: One or more of the following individualized dose reduction techniques were utilized for this examination: 1. Automated exposure control 2. Adjustment of the mA and/or kV according to patient size 3. Use of iterative reconstruction technique CT angiography chest with contrast 03/31/2019 12:51 PM INDICATION: Shortness of breath. History of known DVT. COMPARISON: None available TECHNIQUE: Axial CT images of the chest were obtained after the intravenous administration of nonionic contrast. Coronal and sagittal reformats are provided. Maximum intensity projection images of the thoracic vasculature are provided. FINDINGS: The thyroid gland is normal in appearance. There are no pathologically enlarged axillary, mediastinal or hilar lymph nodes. The heart size is within normal limits. No significant pericardial effusion. Thoracic aorta is normal in course and caliber. There is adequate opacification of the pulmonary arterial system. There there are no filling defects within the pulmonary arterial system to suggest acute or chronic pulmonary embolus. Retroesophageal course of the right common carotid artery is noted. Centrilobular and paraseptal emphysema is noted. Respiratory motion limits evaluation for micronodules. Bronchial wall thickening is compatible with nonspecific bronchitis. There are no suspicious solid noncalcified pulmonary nodules. There are no pulmonary infiltrates. There are no pleural effusions. No pulmonary vascular congestion or pneumothorax. Visualized portions of the upper abdomen are within normal limits. No suspicious osseous lesions are visualized. IMPRESSION: There is no evidence for acute or chronic pulmonary embolism. Mild centrilobular and paraseptal pulmonary emphysema. Electronically signed by: Mignon Romero MD (03/31/2019 2:52 PM) Laboratory Tests Test 04/01/19 15:55 04/01/19 21:55 04/02/19 03:55 Heparin Anti-Xa Act, Unfractionated 0.67 IU/mL (0.30-0.70) 0.50 IU/mL (0.30-0.70) 0.49 IU/mL (0.30-0.70) White Blood Count 10.3 x10^3/uL (4.0-11.0) Red Blood Count 3.46 x10^6/uL (3.50-5.40) Hemoglobin 11.7 g/dL (12.0-15.5) Hematocrit 34.1 % (36.0-47.0) Mean Corpuscular Volume 99 fL (79-100) Mean Corpuscular Hemoglobin 34 pg (25-35) Mean Corpuscular Hemoglobin Concent 34 g/dL (31-37) Red Cell Distribution Width 13.2 % (11.5-14.5) Platelet Count 264 x10^3/uL (140-400) Neutrophils (%) (Auto) 71 % (31-73) Lymphocytes (%) (Auto) 22 % (24-48) Monocytes (%) (Auto) 6 % (0-9) Eosinophils (%) (Auto) 1 % (0-3) Basophils (%) (Auto) 1 % (0-3) Neutrophils # (Auto) 7.3 x10^3/uL (1.8-7.7) Lymphocytes # (Auto) 2.3 x10^3/uL (1.0-4.8) Monocytes # (Auto) 0.7 x10^3/uL (0.0-1.1) Eosinophils # (Auto) 0.1 x10^3/uL (0.0-0.7) Basophils # (Auto) 0.0 x10^3/uL (0.0-0.2) Sodium Level 138 mmol/L (136-145) Potassium Level 3.9 mmol/L (3.5-5.1) Chloride Level 101 mmol/L (98-107) Carbon Dioxide Level 30 mmol/L (21-32) Anion Gap 7 (6-14) Blood Urea Nitrogen 13 mg/dL (7-20) Creatinine 0.8 mg/dL (0.6-1.0) Estimated GFR (Cockcroft-Gault) 71.3 BUN/Creatinine Ratio 16 (6-20) Glucose Level 111 mg/dL (70-99) Calcium Level 8.7 mg/dL (8.5-10.1) Total Bilirubin 0.2 mg/dL (0.2-1.0) Aspartate Amino Transf (AST/SGOT) 24 U/L (15-37) Alanine Aminotransferase (ALT/SGPT) 31 U/L (14-59) Alkaline Phosphatase 114 U/L (46-116) Total Protein 6.6 g/dL (6.4-8.2) Albumin 3.3 g/dL (3.4-5.0) Albumin/Globulin Ratio 1.0 (1.0-1.7) Assessment and Plan Assessmemt and Plan Problems Medical Problems: (1) Atrial fibrillation with RVR Status: Acute (2) Chronic obstructive airway disease Status: Acute (3) Deep venous thrombosis Status: Acute (4) Dyspnea Status: Acute Comment Review of Relevant I have reviewed the following items [place] (where applicable) has been applied. Labs Laboratory Tests Test 03/31/19 13:02 04/01/19 08:00 04/01/19 15:55 04/01/19 21:55 White Blood Count 7.8 x10^3/uL (4.0-11.0) Red Blood Count 3.61 x10^6/uL (3.50-5.40) Hemoglobin 12.1 g/dL (12.0-15.5) Hematocrit 35.2 % (36.0-47.0) Mean Corpuscular Volume 97 fL (79-100) Mean Corpuscular Hemoglobin 34 pg (25-35) Mean Corpuscular Hemoglobin Concent 35 g/dL (31-37) Red Cell Distribution Width 13.2 % (11.5-14.5) Platelet Count 239 x10^3/uL (140-400) Neutrophils (%) (Auto) 70 % (31-73) Lymphocytes (%) (Auto) 21 % (24-48) Monocytes (%) (Auto) 9 % (0-9) Eosinophils (%) (Auto) 1 % (0-3) Basophils (%) (Auto) 0 % (0-3) Neutrophils # (Auto) 5.4 x10^3/uL (1.8-7.7) Lymphocytes # (Auto) 1.6 x10^3/uL (1.0-4.8) Monocytes # (Auto) 0.7 x10^3/uL (0.0-1.1) Eosinophils # (Auto) 0.1 x10^3/uL (0.0-0.7) Basophils # (Auto) 0.0 x10^3/uL (0.0-0.2) Prothrombin Time 14.1 SEC (11.7-14.0) Prothromb Time International Ratio 1.1 (0.8-1.1) Sodium Level 132 mmol/L (136-145) Potassium Level 4.2 mmol/L (3.5-5.1) Chloride Level 95 mmol/L (98-107) Carbon Dioxide Level 29 mmol/L (21-32) Anion Gap 8 (6-14) Blood Urea Nitrogen 10 mg/dL (7-20) Creatinine 0.9 mg/dL (0.6-1.0) Estimated GFR (Cockcroft-Gault) 62.3 BUN/Creatinine Ratio 11 (6-20) Glucose Level 134 mg/dL (70-99) Calcium Level 9.2 mg/dL (8.5-10.1) Total Bilirubin 0.3 mg/dL (0.2-1.0) Aspartate Amino Transf (AST/SGOT) 21 U/L (15-37) Alanine Aminotransferase (ALT/SGPT) 31 U/L (14-59) Alkaline Phosphatase 137 U/L (46-116) Troponin I Quantitative < 0.017 ng/mL (0.000-0.055) BN-Dth-U-Type Natriuretic Peptide 149 pg/mL (0-124) Total Protein 6.8 g/dL (6.4-8.2) Albumin 3.7 g/dL (3.4-5.0) Albumin/Globulin Ratio 1.2 (1.0-1.7) Heparin Anti-Xa Act, Unfractionated 1.03 IU/mL (0.30-0.70) 0.67 IU/mL (0.30-0.70) 0.50 IU/mL (0.30-0.70) Thyroid Stimulating Hormone (TSH) 1.592 uIU/mL (0.358-3.74) Test 04/02/19 03:55 White Blood Count 10.3 x10^3/uL (4.0-11.0) Red Blood Count 3.46 x10^6/uL (3.50-5.40) Hemoglobin 11.7 g/dL (12.0-15.5) Hematocrit 34.1 % (36.0-47.0) Mean Corpuscular Volume 99 fL (79-100) Mean Corpuscular Hemoglobin 34 pg (25-35) Mean Corpuscular Hemoglobin Concent 34 g/dL (31-37) Red Cell Distribution Width 13.2 % (11.5-14.5) Platelet Count 264 x10^3/uL (140-400) Neutrophils (%) (Auto) 71 % (31-73) Lymphocytes (%) (Auto) 22 % (24-48) Monocytes (%) (Auto) 6 % (0-9) Eosinophils (%) (Auto) 1 % (0-3) Basophils (%) (Auto) 1 % (0-3) Neutrophils # (Auto) 7.3 x10^3/uL (1.8-7.7) Lymphocytes # (Auto) 2.3 x10^3/uL (1.0-4.8) Monocytes # (Auto) 0.7 x10^3/uL (0.0-1.1) Eosinophils # (Auto) 0.1 x10^3/uL (0.0-0.7) Basophils # (Auto) 0.0 x10^3/uL (0.0-0.2) Heparin Anti-Xa Act, Unfractionated 0.49 IU/mL (0.30-0.70) Sodium Level 138 mmol/L (136-145) Potassium Level 3.9 mmol/L (3.5-5.1) Chloride Level 101 mmol/L (98-107) Carbon Dioxide Level 30 mmol/L (21-32) Anion Gap 7 (6-14) Blood Urea Nitrogen 13 mg/dL (7-20) Creatinine 0.8 mg/dL (0.6-1.0) Estimated GFR (Cockcroft-Gault) 71.3 BUN/Creatinine Ratio 16 (6-20) Glucose Level 111 mg/dL (70-99) Calcium Level 8.7 mg/dL (8.5-10.1) Total Bilirubin 0.2 mg/dL (0.2-1.0) Aspartate Amino Transf (AST/SGOT) 24 U/L (15-37) Alanine Aminotransferase (ALT/SGPT) 31 U/L (14-59) Alkaline Phosphatase 114 U/L (46-116) Total Protein 6.6 g/dL (6.4-8.2) Albumin 3.3 g/dL (3.4-5.0) Albumin/Globulin Ratio 1.0 (1.0-1.7) Laboratory Tests Test 04/01/19 15:55 04/01/19 21:55 04/02/19 03:55 Heparin Anti-Xa Act, Unfractionated 0.67 IU/mL (0.30-0.70) 0.50 IU/mL (0.30-0.70) 0.49 IU/mL (0.30-0.70) White Blood Count 10.3 x10^3/uL (4.0-11.0) Red Blood Count 3.46 x10^6/uL (3.50-5.40) Hemoglobin 11.7 g/dL (12.0-15.5) Hematocrit 34.1 % (36.0-47.0) Mean Corpuscular Volume 99 fL (79-100) Mean Corpuscular Hemoglobin 34 pg (25-35) Mean Corpuscular Hemoglobin Concent 34 g/dL (31-37) Red Cell Distribution Width 13.2 % (11.5-14.5) Platelet Count 264 x10^3/uL (140-400) Neutrophils (%) (Auto) 71 % (31-73) Lymphocytes (%) (Auto) 22 % (24-48) Monocytes (%) (Auto) 6 % (0-9) Eosinophils (%) (Auto) 1 % (0-3) Basophils (%) (Auto) 1 % (0-3) Neutrophils # (Auto) 7.3 x10^3/uL (1.8-7.7) Lymphocytes # (Auto) 2.3 x10^3/uL (1.0-4.8) Monocytes # (Auto) 0.7 x10^3/uL (0.0-1.1) Eosinophils # (Auto) 0.1 x10^3/uL (0.0-0.7) Basophils # (Auto) 0.0 x10^3/uL (0.0-0.2) Sodium Level 138 mmol/L (136-145) Potassium Level 3.9 mmol/L (3.5-5.1) Chloride Level 101 mmol/L (98-107) Carbon Dioxide Level 30 mmol/L (21-32) Anion Gap 7 (6-14) Blood Urea Nitrogen 13 mg/dL (7-20) Creatinine 0.8 mg/dL (0.6-1.0) Estimated GFR (Cockcroft-Gault) 71.3 BUN/Creatinine Ratio 16 (6-20) Glucose Level 111 mg/dL (70-99) Calcium Level 8.7 mg/dL (8.5-10.1) Total Bilirubin 0.2 mg/dL (0.2-1.0) Aspartate Amino Transf (AST/SGOT) 24 U/L (15-37) Alanine Aminotransferase (ALT/SGPT) 31 U/L (14-59) Alkaline Phosphatase 114 U/L (46-116) Total Protein 6.6 g/dL (6.4-8.2) Albumin 3.3 g/dL (3.4-5.0) Albumin/Globulin Ratio 1.0 (1.0-1.7) Medications Current Medications Albuterol/ Ipratropium (Duoneb) 3 ml 1X ONCE NEB Last administered on 03/31/19at 13:39; Start 03/31/19 at 13:30; Stop 03/31/19 at 13:31; Status DC Methylprednisolone Sodium Succinate (SOLU-Medrol 125MG VIAL) 125 mg 1X ONCE IV Last administered on 03/31/19at 13:16; Start 03/31/19 at 13:30; Stop 03/31/19 at 13:31; Status DC Iohexol (Omnipaque 350 Mg/ml) 100 ml 1X ONCE IV Last administered on 03/31/19at 14:02; Start 03/31/19 at 14:00; Stop 03/31/19 at 14:01; Status DC Info (CONTRAST GIVEN -- Rx MONITORING) 1 each PRN DAILY PRN MC SEE COMMENTS; Start 03/31/19 at 14:00; Stop 04/02/19 at 13:59 Heparin Sodium/ Dextrose 500 ml @ 25.1 mls/hr CONT PRN IV SEE COMMENTS Last administered on 04/01/19at 11:57; Start 03/31/19 at 14:15 Heparin Sodium (Porcine) (Heparin Sodium) 2,350 unit PRN Q6HRS PRN IV FOR UFH LEVEL LESS THAN 0.2; Start 03/31/19 at 14:15 Heparin Sodium (Porcine) (Heparin Sodium) 1,200 unit PRN Q6HRS PRN IV FOR UFH LEVEL 0.2 - 0.29; Start 03/31/19 at 14:15 Heparin Sodium (Porcine) (Heparin Sodium) 6,300 unit 1X ONCE IV Last administered on 03/31/19at 15:37; Start 03/31/19 at 15:45; Stop 03/31/19 at 15:46; Status DC Doxycycline Hyclate 100 mg/ Dextrose 100 ml @ 50 mls/hr 1X ONCE IV Last administered on 03/31/19at 15:58; Start 03/31/19 at 15:15; Stop 03/31/19 at 17:14; Status DC Albuterol/ Ipratropium (Duoneb) 3 ml RTQID NEB Last administered on 04/01/19at 11:11; Start 03/31/19 at 16:00; Stop 04/01/19 at 15:59; Status DC Diltiazem HCl (Cardizem Iv Push) 20 mg 1X ONCE IVP Last administered on 03/31/19 19:49; Start 03/31/19 at 19:45; Stop 03/31/19 at 19:46; Status DC Diltiazem HCl 125 mg/Dextrose 125 ml @ 5 mls/hr TITRATE STAT IV Last administered on 03/31/19 20:26; Start 03/31/19 at 19:33; Stop 04/01/19 at 20:32; Status DC Acetaminophen (Tylenol) 650 mg PRN Q6HRS PRN PO MILD PAIN 1-3 Last administered on 04/01/19 23:31; Start 04/01/19 at 00:30 Docusate Sodium (Colace) 200 mg PRN DAILY PRN PO CONSTIPATION 1ST CHOICE; Start 04/01/19 at 00:30 Famotidine (Pepcid) 20 mg HS PO Last administered on 04/01/19 21:12; Start 04/01/19 at 01:00 Levothyroxine Sodium (Synthroid) 50 mcg HS PO Last administered on 04/01/19 21:12; Start 04/01/19 at 01:00 Calcium/Vitamin D (Oscal D 500mg/ 200uts) 1 tab TIDWMEALS PO Last administered on 04/02/19 08:31; Start 04/01/19 at 08:00 Vitamin D (Vitamin D3) 1,000 unit DAILY PO Last administered on 04/02/19 08:31; Start 04/01/19 at 09:00 Multivitamins (Thera M Plus) 1 tab DAILY PO Last administered on 04/02/19 08:31; Start 04/01/19 at 09:00 Risperidone (RisperDAL) 3 mg BID PO Last administered on 04/02/19 08:31; Start 04/01/19 at 01:00 Metoprolol Tartrate (Lopressor) 50 mg BID PO Last administered on 04/02/19 08:31; Start 04/01/19 at 10:45 Info (Anti-Coagulation Monitoring By Pharmacy) 1 each PRN DAILY PRN MC SEE COMMENTS Last administered on 04/01/19 15:54; Start 04/01/19 at 16:00 Albuterol/ Ipratropium (Duoneb) 3 ml RTQID NEB Last administered on 04/02/19at 07:53; Start 04/01/19 at 20:00 Warfarin Sodium (Coumadin Per Pharmacy) 1 each PRN DAILY PRN MC SEE COMMENTS Last administered on 04/02/19at 08:58; Start 04/02/19 at 09:00 Digoxin (Lanoxin) 500 mcg 1X ONCE IV Last administered on 04/02/19at 08:58; Start 04/02/19 at 09:00; Stop 04/02/19 at 09:01; Status DC Warfarin Sodium (Coumadin) 5 mg 1X WARF ONCE PO ; Start 04/02/19 at 16:00; Stop 04/02/19 at 16:01 Active Scripts Active Reported Multivitamins (Multivitamin) 1 Each Tablet 1 Tab PO DAILY Taztia Xt (Diltiazem Hcl) 120 Mg Capsule.er 120 Mg PO DAILY PRN Risperdal (Risperidone) 3 Mg Tablet 3 Mg PO BID PRN Synthroid (Levothyroxine Sodium) 50 Mcg Tablet 50 Mcg PO HS Pradaxa (Dabigatran Etexilate Mesylate) 150 Mg Capsule 1 Cap PO BID Pepcid (Famotidine) 20 Mg Tablet 20 Mg PO HS Metoprolol Tartrate 25 Mg Tablet 12.5 Mg PO BID Colace (Docusate Sodium) 100 Mg Capsule 200 Mg PO PRN DAILY PRN Vitamin D3 (Cholecalciferol (Vitamin D3)) 1,000 Unit Capsule 1,000 Unit PO DAILY Caltrate 600 + D Soft Chew Tab (Calcium Carbonate/Vitamin D3) 1 Each Tab.chew 1 Each PO TID Tylenol (Acetaminophen) 325 Mg Tablet 650 Mg PO PRN Q6HRS PRN Vitals/I & O Vital Sign - Last 24 Hours 04/01/19 04/01/19 04/01/19 04/01/19 10:00 11:00 11:11 11:57 Temp 97.4 97.4 Pulse 128 112 128 Resp 20 B/P (MAP) 104/51 (68) 132/71 (91) 132/75 Pulse Ox 94 O2 Delivery Room Air Room Air 04/01/19 04/01/19 04/01/19 04/01/19 12:00 13:00 14:00 15:00 Temp 97.6 97.6 Pulse 126 72 82 85 Resp 20 B/P (MAP) 132/75 (94) 108/58 (75) 92/55 (67) 129/66 (87) Pulse Ox 93 O2 Delivery Room Air 04/01/19 04/01/19 04/01/19 04/01/19 16:12 19:00 19:57 20:00 Temp 98.3 98.3 Pulse 97 Resp 12 B/P (MAP) 179/63 (101) Pulse Ox 95 95 95 O2 Delivery Room Air Room Air Room Air Room Air 04/01/19 04/01/19 04/02/19 04/02/19 21:12 23:00 03:00 07:00 Temp 98.0 97.9 97.8 98.0 97.9 97.8 Pulse 112 88 98 104 Resp 12 12 20 B/P (MAP) 179/63 145/64 (91) 127/96 (106) 167/85 (112) Pulse Ox 95 86 92 O2 Delivery Room Air Room Air Room Air 04/02/19 04/02/19 04/02/19 07:54 08:31 08:58 Pulse 87 131 B/P (MAP) 170/77 Pulse Ox 96 O2 Delivery Room Air Intake and Output 04/01/19 04/01/19 04/02/19 15:00 23:00 07:00 Intake Total 780 ml 480 ml 800 ml Output Total 1400 ml 300 ml 1600 ml Balance -620 ml 180 ml -800 ml MARGARET MCCARTHY MD Apr 02, 2019 09:06
[2019-04-02 09:14] LABS: PROTHROMBIN TIME PATIENT 12.1 SEC (11.7-14.0)
[2019-04-02] MEDS: HEPARIN 25,000UTS/500ML PREMIX 500 ML IV PRN (10:48)
[2019-04-02 11:00] VITALS: BP 148/77
--- NOTE | 2019-04-02 12:27 | PDOC ---
PULMONARY PROGRESS NOTES Subjective NO SOA Vitals Vital Signs Date Time Temp Pulse Resp B/P (MAP) Pulse Ox O2 Delivery O2 Flow Rate FiO2 04/02/19 12:02 97 Room Air 04/02/19 08:58 131 04/02/19 08:31 170/77 04/02/19 07:00 97.8 20 97.8 General: Alert, No acute distress Lungs: Wheezing (faint) Cardiovascular: S1 Abdomen: Soft Neuro Exam: Alert Extremities: No Edema Skin: Warm Labs Laboratory Tests Test 03/31/19 13:02 04/01/19 08:00 04/01/19 15:55 04/01/19 21:55 White Blood Count 7.8 x10^3/uL (4.0-11.0) Red Blood Count 3.61 x10^6/uL (3.50-5.40) Hemoglobin 12.1 g/dL (12.0-15.5) Hematocrit 35.2 % (36.0-47.0) Mean Corpuscular Volume 97 fL (79-100) Mean Corpuscular Hemoglobin 34 pg (25-35) Mean Corpuscular Hemoglobin Concent 35 g/dL (31-37) Red Cell Distribution Width 13.2 % (11.5-14.5) Platelet Count 239 x10^3/uL (140-400) Neutrophils (%) (Auto) 70 % (31-73) Lymphocytes (%) (Auto) 21 % (24-48) Monocytes (%) (Auto) 9 % (0-9) Eosinophils (%) (Auto) 1 % (0-3) Basophils (%) (Auto) 0 % (0-3) Neutrophils # (Auto) 5.4 x10^3/uL (1.8-7.7) Lymphocytes # (Auto) 1.6 x10^3/uL (1.0-4.8) Monocytes # (Auto) 0.7 x10^3/uL (0.0-1.1) Eosinophils # (Auto) 0.1 x10^3/uL (0.0-0.7) Basophils # (Auto) 0.0 x10^3/uL (0.0-0.2) Prothrombin Time 14.1 SEC (11.7-14.0) Prothromb Time International Ratio 1.1 (0.8-1.1) Sodium Level 132 mmol/L (136-145) Potassium Level 4.2 mmol/L (3.5-5.1) Chloride Level 95 mmol/L (98-107) Carbon Dioxide Level 29 mmol/L (21-32) Anion Gap 8 (6-14) Blood Urea Nitrogen 10 mg/dL (7-20) Creatinine 0.9 mg/dL (0.6-1.0) Estimated GFR (Cockcroft-Gault) 62.3 BUN/Creatinine Ratio 11 (6-20) Glucose Level 134 mg/dL (70-99) Calcium Level 9.2 mg/dL (8.5-10.1) Total Bilirubin 0.3 mg/dL (0.2-1.0) Aspartate Amino Transf (AST/SGOT) 21 U/L (15-37) Alanine Aminotransferase (ALT/SGPT) 31 U/L (14-59) Alkaline Phosphatase 137 U/L (46-116) Troponin I Quantitative < 0.017 ng/mL (0.000-0.055) CN-Pwg-[id number]-Type Natriuretic Peptide 149 pg/mL (0-124) Total Protein 6.8 g/dL (6.4-8.2) Albumin 3.7 g/dL (3.4-5.0) Albumin/Globulin Ratio 1.2 (1.0-1.7) Heparin Anti-Xa Act, Unfractionated 1.03 IU/mL (0.30-0.70) 0.67 IU/mL (0.30-0.70) 0.50 IU/mL (0.30-0.70) Thyroid Stimulating Hormone (TSH) 1.592 uIU/mL (0.358-3.74) Test 04/02/19 03:55 White Blood Count 10.3 x10^3/uL (4.0-11.0) Red Blood Count 3.46 x10^6/uL (3.50-5.40) Hemoglobin 11.7 g/dL (12.0-15.5) Hematocrit 34.1 % (36.0-47.0) Mean Corpuscular Volume 99 fL (79-100) Mean Corpuscular Hemoglobin 34 pg (25-35) Mean Corpuscular Hemoglobin Concent 34 g/dL (31-37) Red Cell Distribution Width 13.2 % (11.5-14.5) Platelet Count 264 x10^3/uL (140-400) Neutrophils (%) (Auto) 71 % (31-73) Lymphocytes (%) (Auto) 22 % (24-48) Monocytes (%) (Auto) 6 % (0-9) Eosinophils (%) (Auto) 1 % (0-3) Basophils (%) (Auto) 1 % (0-3) Neutrophils # (Auto) 7.3 x10^3/uL (1.8-7.7) Lymphocytes # (Auto) 2.3 x10^3/uL (1.0-4.8) Monocytes # (Auto) 0.7 x10^3/uL (0.0-1.1) Eosinophils # (Auto) 0.1 x10^3/uL (0.0-0.7) Basophils # (Auto) 0.0 x10^3/uL (0.0-0.2) Prothrombin Time 12.1 SEC (11.7-14.0) Prothromb Time International Ratio 0.9 (0.8-1.1) Heparin Anti-Xa Act, Unfractionated 0.49 IU/mL (0.30-0.70) Sodium Level 138 mmol/L (136-145) Potassium Level 3.9 mmol/L (3.5-5.1) Chloride Level 101 mmol/L (98-107) Carbon Dioxide Level 30 mmol/L (21-32) Anion Gap 7 (6-14) Blood Urea Nitrogen 13 mg/dL (7-20) Creatinine 0.8 mg/dL (0.6-1.0) Estimated GFR (Cockcroft-Gault) 71.3 BUN/Creatinine Ratio 16 (6-20) Glucose Level 111 mg/dL (70-99) Calcium Level 8.7 mg/dL (8.5-10.1) Total Bilirubin 0.2 mg/dL (0.2-1.0) Aspartate Amino Transf (AST/SGOT) 24 U/L (15-37) Alanine Aminotransferase (ALT/SGPT) 31 U/L (14-59) Alkaline Phosphatase 114 U/L (46-116) Total Protein 6.6 g/dL (6.4-8.2) Albumin 3.3 g/dL (3.4-5.0) Albumin/Globulin Ratio 1.0 (1.0-1.7) Laboratory Tests Test 04/01/19 15:55 04/01/19 21:55 04/02/19 03:55 Heparin Anti-Xa Act, Unfractionated 0.67 IU/mL (0.30-0.70) 0.50 IU/mL (0.30-0.70) 0.49 IU/mL (0.30-0.70) White Blood Count 10.3 x10^3/uL (4.0-11.0) Red Blood Count 3.46 x10^6/uL (3.50-5.40) Hemoglobin 11.7 g/dL (12.0-15.5) Hematocrit 34.1 % (36.0-47.0) Mean Corpuscular Volume 99 fL (79-100) Mean Corpuscular Hemoglobin 34 pg (25-35) Mean Corpuscular Hemoglobin Concent 34 g/dL (31-37) Red Cell Distribution Width 13.2 % (11.5-14.5) Platelet Count 264 x10^3/uL (140-400) Neutrophils (%) (Auto) 71 % (31-73) Lymphocytes (%) (Auto) 22 % (24-48) Monocytes (%) (Auto) 6 % (0-9) Eosinophils (%) (Auto) 1 % (0-3) Basophils (%) (Auto) 1 % (0-3) Neutrophils # (Auto) 7.3 x10^3/uL (1.8-7.7) Lymphocytes # (Auto) 2.3 x10^3/uL (1.0-4.8) Monocytes # (Auto) 0.7 x10^3/uL (0.0-1.1) Eosinophils # (Auto) 0.1 x10^3/uL (0.0-0.7) Basophils # (Auto) 0.0 x10^3/uL (0.0-0.2) Prothrombin Time 12.1 SEC (11.7-14.0) Prothromb Time International Ratio 0.9 (0.8-1.1) Sodium Level 138 mmol/L (136-145) Potassium Level 3.9 mmol/L (3.5-5.1) Chloride Level 101 mmol/L (98-107) Carbon Dioxide Level 30 mmol/L (21-32) Anion Gap 7 (6-14) Blood Urea Nitrogen 13 mg/dL (7-20) Creatinine 0.8 mg/dL (0.6-1.0) Estimated GFR (Cockcroft-Gault) 71.3 BUN/Creatinine Ratio 16 (6-20) Glucose Level 111 mg/dL (70-99) Calcium Level 8.7 mg/dL (8.5-10.1) Total Bilirubin 0.2 mg/dL (0.2-1.0) Aspartate Amino Transf (AST/SGOT) 24 U/L (15-37) Alanine Aminotransferase (ALT/SGPT) 31 U/L (14-59) Alkaline Phosphatase 114 U/L (46-116) Total Protein 6.6 g/dL (6.4-8.2) Albumin 3.3 g/dL (3.4-5.0) Albumin/Globulin Ratio 1.0 (1.0-1.7) Medications Active Scripts Medications Dose Route/Sig Max Daily Dose Days Date Category Multivitamins (Multivitamin) 1 Each Tablet 1 Tab PO DAILY 03/31/19 Reported Taztia Xt (Diltiazem Hcl) 120 Mg Capsule.er 120 Mg PO DAILY PRN 03/31/19 Reported Risperdal (Risperidone) 3 Mg Tablet 3 Mg PO BID PRN 03/31/19 Reported Synthroid (Levothyroxine Sodium) 50 Mcg Tablet 50 Mcg PO HS 04/06/16 Reported Pradaxa (Dabigatran Etexilate Mesylate) 150 Mg Capsule 1 Cap PO BID 04/06/16 Reported Pepcid (Famotidine) 20 Mg Tablet 20 Mg PO HS 04/06/16 Reported Metoprolol Tartrate 25 Mg Tablet 12.5 Mg PO BID 04/06/16 Reported Colace (Docusate Sodium) 100 Mg Capsule 200 Mg PO PRN DAILY PRN 04/06/16 Reported Vitamin D3 (Cholecalciferol (Vitamin D3)) 1,000 Unit Capsule 1,000 Unit PO DAILY 04/06/16 Reported Caltrate 600 + D Soft Chew Tab (Calcium Carbonate/Vitamin D3) 1 Each Tab.chew 1 Each PO TID 04/06/16 Reported Tylenol (Acetaminophen) 325 Mg Tablet 650 Mg PO PRN Q6HRS PRN 04/06/16 Reported Impression . 1. Dyspnea secondary to atrial fibrillation with rapid ventricular response. Still in atrial fibrillation with rapid ventricular response. now controlled 2. Chronic obstructive pulmonary disease. We will clinically compensated. Unknown FEV1 and unknown duration of tobacco use. 3. Reportedly, history of deep vein thrombosis at her facility. Was on Pradaxa before coming to the hospital, now on heparin. We will get the records. Plan . RECOMMENDATIONS: 1. Pulmonary status seems to be stable. We would recommend to continue present bronchodilators with DuoNebs. 2. Heparin and Cardizem per Cardiology. 3. Once she is off heparin, she can be back on Pradaxa. 4. We will obtain records of her prior DVT history. 5. Discussed with RN. We will follow along with you. DOLORES BEGUM MD Apr 02, 2019 12:27
--- NOTE | 2019-04-02 13:07 | CARD ---
MR#: [id number] Date of Study: 04/01/2019 Ordering Physician: NATALIE SCHMIDT, Referring Physician: NATALIE SCHMIDT, Tech: Delilah Hdez APPROVED REPORT EXAM: Two-dimensional and M-mode echocardiogram with Doppler and color Doppler. Other Information Quality : AverageHR: 72bpm Technically limited study due to body habitus and COPD INDICATION Dyspnea Atrial Fibrillation RISK FACTORS Smoking 2D DIMENSIONS RVDd3.6 (2.9-3.5cm)Left Atrium(2D)2.6 (1.6-4.0cm) IVSd1.2 (0.7-1.1cm)Aortic Root(2D)2.6 (2.0-3.7cm) LVDd4.5 (3.9-5.9cm)LVOT Diameter2.2 (1.8-2.4cm) PWd0.9 (0.7-1.1cm)LVDs2.3 (2.5-4.0cm) FS (%) 49.4 %SV74.4 ml Aortic Valve AoV Peak Anson.139.8cm/sAoV VTI32.1cm AO Peak GR.7.8mmHgLVOT VTI 18.46cm AO Mean GR.5mmHg TDI Lateral E' P. V13.12cm/sMedial E' P. V17.28cm/s Tricuspid Valve TR P. [id number]/sRAP [id number] TR Peak Gr.[id number] Pulmonary Vein S1 Pdcnwtwd71.8cm/sS2 Uypyaykv09.16cm/s D2 Csahbdnf26.2cm/sPVa [id number] LEFT VENTRICLE The left ventricle is normal size. There is mild concentric left ventricular hypertrophy. The left ve ntricular systolic function is normal. The ejection fraction is 60-65%. There is normal LV segmental wall motion. Diastology indeterminent due to Atrial Fibrillation. RIGHT VENTRICLE The right ventricle is borderline dilated. There is normal right ventricular wall thickness. The righ t ventricular systolic function is normal. ATRIA The left atrium size is normal. The right atrium is borderline dilated. The interatrial septum is int act with no evidence for an atrial septal defect or patent foramen ovale as noted on 2-D or Doppler i maging. AORTIC VALVE The aortic valve is not well visualized. Doppler and Color Flow revealed no significant aortic regurg itation. There is no significant aortic valvular stenosis. MITRAL VALVE The mitral valve is normal in structure and function. There is no evidence of mitral valve prolapse. There is no mitral valve stenosis. Doppler and Color-flow revealed trace mitral regurgitation. TRICUSPID VALVE The tricuspid valve is not well visualized. Doppler and Color Flow revealed trace tricuspid regurgita tion with an estimated PAP of 34 mmHg. There is no tricuspid valve stenosis. PULMONIC VALVE The pulmonic valve is not well visualized. Doppler and Color Flow revealed no pulmonic valvular regur gitation. GREAT VESSELS The aortic root is normal in size. The IVC is dilated and collapses >50% with inspiration. PERICARDIAL EFFUSION There is no evidence of significant pericardial effusion. Critical Notification Critical Value: No <Conclusion> The left ventricle is normal size. The left ventricular systolic function is normal. The ejection fraction is 60-65%. There is mild concentric left ventricular hypertrophy. There is no significant aortic valvular stenosis. Doppler and Color Flow revealed no significant aortic regurgitation. Doppler and Color-flow revealed trace mitral regurgitation. Doppler and Color Flow revealed trace tricuspid regurgitation with an estimated PAP of 34 mmHg. Signed by : Mikael Briceno MD Electronically Approved : 04/01/2019 16:28:10
[2019-04-02 15:00] VITALS: BP 136/89
[2019-04-02] MEDS ORDERED: WARFARIN 5 MG TABLET. PO ONE (16:00)
[2019-04-02 19:00] VITALS: BP 146/64
[2019-04-02] MEDS: LEVOTHYROXINE 50 MCG TABLET PO SCH (21:10)
[2019-04-02] MEDS: FAMOTIDINE 20 MG TABLET. PO SCH (21:10)
[2019-04-02] MEDS: METOPROLOL TART IMMED RELEASE 25 MG TABLET. PO SCH (21:10)
[2019-04-03 03:00] VITALS: BP 137/69
[2019-04-03 07:00] VITALS: BP 132/85
[2019-04-03] MEDS: IPRATRPIUM/ALBUTEROL 0.5/2.5MG 3 ML NEBU. NEB SCH ×4 (07:13→19:57)
--- NOTE | 2019-04-03 08:32 | PDOC ---
PROGRESS NOTES History of Present Illness History of Present Illness ASSESSMENT AND PLAN: Atrial fibrillation with rapid ventricular rate chronic obstructive pulmonary disease, no evidence for acute or chronic pulmonary embolism. Mild centrilobular and paraseptal pulmonary emphysema. admitted. consult Pulmonary consult Cardiology. home meds, cardiac monitoring, serial enzymes, serial EKGs. Deep vein thrombosis prophylaxis. Full code. bronchodilators Heparin and / Coumadin per Cardiology. 27 MIN PT EXAM, CHART REVIEW, > 50% OF TIME SPENT WITH EXAM, CHART REVIEW, PT CARE COORDINATION Vitals Vitals Vital Signs Date Time Temp Pulse Resp B/P (MAP) Pulse Ox O2 Delivery O2 Flow Rate FiO2 04/03/19 07:14 95 Room Air 04/03/19 07:00 97.6 81 12 132/85 (101) 97.6 Physical Exam Physical Exam GENERAL: No apparent distress. Alert and oriented. HEENT: Head is normocephalic, atraumatic, pupils were equally round and reactive to light and accommodation. NECK: Supple, no JVD, no thyromegaly was noted. LUNGS: She has decreased breath sounds and some wheezing. HEART: RRR, S1, S2 present. Peripheral pulses intact, no obvious murmurs were noted. ABDOMEN: Soft, nontender. Positive bowel sounds no organomegaly, normal bowel sounds. EXTREMITIES: Without any cyanosis, clubbing, or edema. Pedal pulses intact, Homans sign is negative. NEUROLOGIC: Normal speech, normal tone. A & O x3, moves all extremities, no obvious focal deficits. PSYCHIATRIC: Normal affect, normal mood. Stable. SKIN: No ulcerations or rashes, good skin turgor, no jaundice. VASCULAR: Good capillary refill, neurovascular bundle appears to be intact. General: Alert, Cooperative, No acute distress Heart: Regular rate, Normal S1, Normal S2 Lungs: Wheezing (faint) Abdomen: Soft, No tenderness Extremities: No edema, Normal pulses Skin: No breakdown, No significant lesion Assessment and Plan Assessmemt and Plan Problems Medical Problems: (1) Atrial fibrillation with RVR Status: Acute (2) Chronic obstructive airway disease Status: Acute (3) Deep venous thrombosis Status: Acute (4) Dyspnea Status: Acute Comment Review of Relevant I have reviewed the following items [place] (where applicable) has been applied. Labs Laboratory Tests Test 04/01/19 15:55 04/01/19 21:55 04/02/19 03:55 Heparin Anti-Xa Act, Unfractionated 0.67 IU/mL (0.30-0.70) 0.50 IU/mL (0.30-0.70) 0.49 IU/mL (0.30-0.70) White Blood Count 10.3 x10^3/uL (4.0-11.0) Red Blood Count 3.46 x10^6/uL (3.50-5.40) Hemoglobin 11.7 g/dL (12.0-15.5) Hematocrit 34.1 % (36.0-47.0) Mean Corpuscular Volume 99 fL (79-100) Mean Corpuscular Hemoglobin 34 pg (25-35) Mean Corpuscular Hemoglobin Concent 34 g/dL (31-37) Red Cell Distribution Width 13.2 % (11.5-14.5) Platelet Count 264 x10^3/uL (140-400) Neutrophils (%) (Auto) 71 % (31-73) Lymphocytes (%) (Auto) 22 % (24-48) Monocytes (%) (Auto) 6 % (0-9) Eosinophils (%) (Auto) 1 % (0-3) Basophils (%) (Auto) 1 % (0-3) Neutrophils # (Auto) 7.3 x10^3/uL (1.8-7.7) Lymphocytes # (Auto) 2.3 x10^3/uL (1.0-4.8) Monocytes # (Auto) 0.7 x10^3/uL (0.0-1.1) Eosinophils # (Auto) 0.1 x10^3/uL (0.0-0.7) Basophils # (Auto) 0.0 x10^3/uL (0.0-0.2) Prothrombin Time 12.1 SEC (11.7-14.0) Prothromb Time International Ratio 0.9 (0.8-1.1) Sodium Level 138 mmol/L (136-145) Potassium Level 3.9 mmol/L (3.5-5.1) Chloride Level 101 mmol/L (98-107) Carbon Dioxide Level 30 mmol/L (21-32) Anion Gap 7 (6-14) Blood Urea Nitrogen 13 mg/dL (7-20) Creatinine 0.8 mg/dL (0.6-1.0) Estimated GFR (Cockcroft-Gault) 71.3 BUN/Creatinine Ratio 16 (6-20) Glucose Level 111 mg/dL (70-99) Calcium Level 8.7 mg/dL (8.5-10.1) Total Bilirubin 0.2 mg/dL (0.2-1.0) Aspartate Amino Transf (AST/SGOT) 24 U/L (15-37) Alanine Aminotransferase (ALT/SGPT) 31 U/L (14-59) Alkaline Phosphatase 114 U/L (46-116) Total Protein 6.6 g/dL (6.4-8.2) Albumin 3.3 g/dL (3.4-5.0) Albumin/Globulin Ratio 1.0 (1.0-1.7) Medications Current Medications Albuterol/ Ipratropium (Duoneb) 3 ml 1X ONCE NEB Last administered on 03/31/19at 13:39; Start 03/31/19 at 13:30; Stop 03/31/19 at 13:31; Status DC Methylprednisolone Sodium Succinate (SOLU-Medrol 125MG VIAL) 125 mg 1X ONCE IV Last administered on 03/31/19at 13:16; Start 03/31/19 at 13:30; Stop 03/31/19 at 13:31; Status DC Iohexol (Omnipaque 350 Mg/ml) 100 ml 1X ONCE IV Last administered on 03/31/19at 14:02; Start 03/31/19 at 14:00; Stop 03/31/19 at 14:01; Status DC Info (CONTRAST GIVEN -- Rx MONITORING) 1 each PRN DAILY PRN MC SEE COMMENTS; Start 03/31/19 at 14:00; Stop 04/02/19 at 13:59; Status DC Heparin Sodium/ Dextrose 500 ml @ 25.1 mls/hr CONT PRN IV SEE COMMENTS Last administered on 04/02/19at 10:49; Start 03/31/19 at 14:15 Heparin Sodium (Porcine) (Heparin Sodium) 2,350 unit PRN Q6HRS PRN IV FOR UFH LEVEL LESS THAN 0.2; Start 03/31/19 at 14:15 Heparin Sodium (Porcine) (Heparin Sodium) 1,200 unit PRN Q6HRS PRN IV FOR UFH LEVEL 0.2 - 0.29; Start 03/31/19 at 14:15 Heparin Sodium (Porcine) (Heparin Sodium) 6,300 unit 1X ONCE IV Last administered on 03/31/19 15:37; Start 03/31/19 at 15:45; Stop 03/31/19 at 15:46; Status DC Doxycycline Hyclate 100 mg/ Dextrose 100 ml @ 50 mls/hr 1X ONCE IV Last administered on 03/31/19at 15:58; Start 03/31/19 at 15:15; Stop 03/31/19 at 17:14; Status DC Albuterol/ Ipratropium (Duoneb) 3 ml RTQID NEB Last administered on 04/01/19 11:11; Start 03/31/19 at 16:00; Stop 04/01/19 at 15:59; Status DC Diltiazem HCl (Cardizem Iv Push) 20 mg 1X ONCE IVP Last administered on 03/31/19at 19:49; Start 03/31/19 at 19:45; Stop 03/31/19 at 19:46; Status DC Diltiazem HCl 125 mg/Dextrose 125 ml @ 5 mls/hr TITRATE STAT IV Last administered on 03/31/19at 20:26; Start 03/31/19 at 19:33; Stop 04/01/19 at 20:32; Status DC Acetaminophen (Tylenol) 650 mg PRN Q6HRS PRN PO MILD PAIN 1-3 Last administered on 04/01/19at 23:31; Start 04/01/19 at 00:30 Docusate Sodium (Colace) 200 mg PRN DAILY PRN PO CONSTIPATION 1ST CHOICE; Start 04/01/19 at 00:30 Famotidine (Pepcid) 20 mg HS PO Last administered on 04/02/19 21:10; Start 04/01/19 at 01:00 Levothyroxine Sodium (Synthroid) 50 mcg HS PO Last administered on 04/02/19 21:10; Start 04/01/19 at 01:00 Calcium/Vitamin D (Oscal D 500mg/ 200uts) 1 tab TIDWMEALS PO Last administered on 04/02/19 17:42; Start 04/01/19 at 08:00 Vitamin D (Vitamin D3) 1,000 unit DAILY PO Last administered on 04/02/19 08:31; Start 04/01/19 at 09:00 Multivitamins (Thera M Plus) 1 tab DAILY PO Last administered on 04/02/19 08:31; Start 04/01/19 at 09:00 Risperidone (RisperDAL) 3 mg BID PO Last administered on 04/02/19 21:10; Start 04/01/19 at 01:00 Metoprolol Tartrate (Lopressor) 50 mg BID PO Last administered on 04/02/19 08:31; Start 04/01/19 at 10:45; Stop 04/02/19 at 16:16; Status DC Info (Anti-Coagulation Monitoring By Pharmacy) 1 each PRN DAILY PRN MC SEE COMMENTS Last administered on 04/01/19 15:54; Start 04/01/19 at 16:00 Albuterol/ Ipratropium (Duoneb) 3 ml RTQID NEB Last administered on 04/03/19 07:13; Start 04/01/19 at 20:00 Warfarin Sodium (Coumadin Per Pharmacy) 1 each PRN DAILY PRN MC SEE COMMENTS Last administered on 04/02/19 08:58; Start 04/02/19 at 09:00 Digoxin (Lanoxin) 500 mcg 1X ONCE IV Last administered on 04/02/19 08:58; Start 04/02/19 at 09:00; Stop 04/02/19 at 09:01; Status DC Warfarin Sodium (Coumadin) 5 mg 1X WARF ONCE PO Last administered on 04/02/19 17:42; Start 04/02/19 at 16:00; Stop 04/02/19 at 16:01; Status DC Metoprolol Tartrate (Lopressor) 75 mg BID PO Last administered on 04/02/19 21:10; Start 04/02/19 at 21:00 Active Scripts Active Reported Multivitamins (Multivitamin) 1 Each Tablet 1 Tab PO DAILY Taztia Xt (Diltiazem Hcl) 120 Mg Capsule.er 120 Mg PO DAILY PRN Risperdal (Risperidone) 3 Mg Tablet 3 Mg PO BID PRN Synthroid (Levothyroxine Sodium) 50 Mcg Tablet 50 Mcg PO HS Pradaxa (Dabigatran Etexilate Mesylate) 150 Mg Capsule 1 Cap PO BID Pepcid (Famotidine) 20 Mg Tablet 20 Mg PO HS Metoprolol Tartrate 25 Mg Tablet 12.5 Mg PO BID Colace (Docusate Sodium) 100 Mg Capsule 200 Mg PO PRN DAILY PRN Vitamin D3 (Cholecalciferol (Vitamin D3)) 1,000 Unit Capsule 1,000 Unit PO DAILY Caltrate 600 + D Soft Chew Tab (Calcium Carbonate/Vitamin D3) 1 Each Tab.chew 1 Each PO TID Tylenol (Acetaminophen) 325 Mg Tablet 650 Mg PO PRN Q6HRS PRN Vitals/I & O Vital Sign - Last 24 Hours 04/02/19 04/02/19 04/02/19 04/02/19 08:58 11:00 12:02 15:00 Temp 98.2 96.6 98.2 96.6 Pulse 131 79 107 Resp 20 20 B/P (MAP) 148/77 (100) 136/89 (105) Pulse Ox 98 97 94 O2 Delivery Room Air Room Air Room Air 04/02/19 04/02/19 04/02/19 04/02/19 17:00 19:00 20:00 20:08 Temp 97.9 97.9 Pulse 86 Resp 12 B/P (MAP) 146/64 (91) Pulse Ox 96 O2 Delivery Room Air Room Air Room Air Room Air 04/02/19 04/03/19 04/03/19 04/03/19 21:10 03:00 07:00 07:14 Temp 98.1 97.6 98.1 97.6 Pulse 107 109 81 Resp 12 12 B/P (MAP) 146/64 137/69 (91) 132/85 (101) Pulse Ox 89 94 95 O2 Delivery Room Air Room Air Room Air Intake and Output 04/02/19 04/02/19 04/03/19 15:00 23:00 07:00 Intake Total 1000 ml 1340 ml 800 ml Output Total 1400 ml 1600 ml Balance -400 ml 1340 ml -800 ml MARGARET MCCARTHY MD Apr 03, 2019 08:32
[2019-04-03] MEDS: MULTIVITAMIN with MINERAL TABLET. PO SCH (09:10)
[2019-04-03] MEDS: risperiDONE 1 MG TABLET. PO SCH ×2 (09:11→20:51)
[2019-04-03] MEDS: CALCIUM CARB/VIT D3 500/200 TABLET. PO SCH ×3 (09:11→16:42)
[2019-04-03] MEDS: METOPROLOL TART IMMED RELEASE 25 MG TABLET. PO SCH ×2 (09:11→20:52)
[2019-04-03] MEDS: CHOLECALCIFEROL (VITAMIN D3) 1,000 UNIT TABLET PO SCH (09:11)
[2019-04-03 10:18] LABS: PROTHROMBIN TIME PATIENT 12.9 SEC (11.7-14.0)
[2019-04-03] MEDS: HEPARIN 25,000UTS/500ML PREMIX 500 ML IV PRN (10:42)
[2019-04-03 11:00] VITALS: BP 106/74
--- NOTE | 2019-04-03 11:12 | PDOC ---
PULMONARY PROGRESS NOTES Subjective NO SOA Vitals Vital Signs Date Time Temp Pulse Resp B/P (MAP) Pulse Ox O2 Delivery O2 Flow Rate FiO2 04/03/19 09:11 119 132/85 04/03/19 08:00 Room Air 04/03/19 07:14 95 04/03/19 07:00 97.6 12 97.6 General: Alert, No acute distress Lungs: Wheezing (RESOLVED) Cardiovascular: S1 Abdomen: Soft Neuro Exam: Alert Extremities: No Edema Skin: Warm Labs Laboratory Tests Test 04/01/19 15:55 04/01/19 21:55 04/02/19 03:55 04/03/19 08:38 Heparin Anti-Xa Act, Unfractionated 0.67 IU/mL (0.30-0.70) 0.50 IU/mL (0.30-0.70) 0.49 IU/mL (0.30-0.70) White Blood Count 10.3 x10^3/uL (4.0-11.0) Red Blood Count 3.46 x10^6/uL (3.50-5.40) Hemoglobin 11.7 g/dL (12.0-15.5) Hematocrit 34.1 % (36.0-47.0) Mean Corpuscular Volume 99 fL (79-100) Mean Corpuscular Hemoglobin 34 pg (25-35) Mean Corpuscular Hemoglobin Concent 34 g/dL (31-37) Red Cell Distribution Width 13.2 % (11.5-14.5) Platelet Count 264 x10^3/uL (140-400) Neutrophils (%) (Auto) 71 % (31-73) Lymphocytes (%) (Auto) 22 % (24-48) Monocytes (%) (Auto) 6 % (0-9) Eosinophils (%) (Auto) 1 % (0-3) Basophils (%) (Auto) 1 % (0-3) Neutrophils # (Auto) 7.3 x10^3/uL (1.8-7.7) Lymphocytes # (Auto) 2.3 x10^3/uL (1.0-4.8) Monocytes # (Auto) 0.7 x10^3/uL (0.0-1.1) Eosinophils # (Auto) 0.1 x10^3/uL (0.0-0.7) Basophils # (Auto) 0.0 x10^3/uL (0.0-0.2) Prothrombin Time 12.1 SEC (11.7-14.0) 12.9 SEC (11.7-14.0) Prothromb Time International Ratio 0.9 (0.8-1.1) 1.0 (0.8-1.1) Sodium Level 138 mmol/L (136-145) Potassium Level 3.9 mmol/L (3.5-5.1) Chloride Level 101 mmol/L (98-107) Carbon Dioxide Level 30 mmol/L (21-32) Anion Gap 7 (6-14) Blood Urea Nitrogen 13 mg/dL (7-20) Creatinine 0.8 mg/dL (0.6-1.0) Estimated GFR (Cockcroft-Gault) 71.3 BUN/Creatinine Ratio 16 (6-20) Glucose Level 111 mg/dL (70-99) Calcium Level 8.7 mg/dL (8.5-10.1) Total Bilirubin 0.2 mg/dL (0.2-1.0) Aspartate Amino Transf (AST/SGOT) 24 U/L (15-37) Alanine Aminotransferase (ALT/SGPT) 31 U/L (14-59) Alkaline Phosphatase 114 U/L (46-116) Total Protein 6.6 g/dL (6.4-8.2) Albumin 3.3 g/dL (3.4-5.0) Albumin/Globulin Ratio 1.0 (1.0-1.7) Test 04/03/19 09:38 Heparin Anti-Xa Act, Unfractionated 0.34 IU/mL (0.30-0.70) Laboratory Tests Test 04/03/19 08:38 04/03/19 09:38 Prothrombin Time 12.9 SEC (11.7-14.0) Prothromb Time International Ratio 1.0 (0.8-1.1) Heparin Anti-Xa Act, Unfractionated 0.34 IU/mL (0.30-0.70) Medications Active Scripts Medications Dose Route/Sig Max Daily Dose Days Date Category Multivitamins (Multivitamin) 1 Each Tablet 1 Tab PO DAILY 03/31/19 Reported Taztia Xt (Diltiazem Hcl) 120 Mg Capsule.er 120 Mg PO DAILY PRN 03/31/19 Reported Risperdal (Risperidone) 3 Mg Tablet 3 Mg PO BID PRN 03/31/19 Reported Synthroid (Levothyroxine Sodium) 50 Mcg Tablet 50 Mcg PO HS 04/06/16 Reported Pradaxa (Dabigatran Etexilate Mesylate) 150 Mg Capsule 1 Cap PO BID 04/06/16 Reported Pepcid (Famotidine) 20 Mg Tablet 20 Mg PO HS 04/06/16 Reported Metoprolol Tartrate 25 Mg Tablet 12.5 Mg PO BID 04/06/16 Reported Colace (Docusate Sodium) 100 Mg Capsule 200 Mg PO PRN DAILY PRN 04/06/16 Reported Vitamin D3 (Cholecalciferol (Vitamin D3)) 1,000 Unit Capsule 1,000 Unit PO DAILY 04/06/16 Reported Caltrate 600 + D Soft Chew Tab (Calcium Carbonate/Vitamin D3) 1 Each Tab.chew 1 Each PO TID 04/06/16 Reported Tylenol (Acetaminophen) 325 Mg Tablet 650 Mg PO PRN Q6HRS PRN 04/06/16 Reported Impression . 1. Dyspnea secondary to atrial fibrillation with rapid ventricular response. Still in atrial fibrillation with rapid ventricular response. now controlled 2. Chronic obstructive pulmonary disease. We will clinically compensated. Unknown FEV1 and unknown duration of tobacco use. 3. Reportedly, history of deep vein thrombosis at her facility. Was on Pradaxa before coming to the hospital, now on heparin. We will get the records. Plan . RECOMMENDATIONS: 1. Pulmonary status seems to be stable. We would recommend to continue present bronchodilators with DuoNebs. 2. Heparin and / Coumadin per Cardiology. 3. was on Pradaxa.at [place] 4. We will obtain records of her prior DVT history. 5. Discussed with RN. We will follow along with you. stable pulmonary status DOLORES BEGUM MD Apr 03, 2019 11:12
--- NOTE | 2019-04-03 12:15 | PDOC ---
CARDIO Progress Notes Date and Time Date of Service 04/03/2019 Time of Evaluation 1200 Subjective Subjective: No Chest Pain, No Palpitations, Other (SOA better) Vitals Vitals Vital Signs Date Time Temp Pulse Resp B/P (MAP) Pulse Ox O2 Delivery O2 Flow Rate FiO2 04/03/19 11:00 97.8 84 12 106/74 (85) 92 Room Air 97.8 Weight Weight [ ] Input and Output Intake and Output Intake and Output 04/03/19 06:59 Intake Total 3140 ml Output Total 3400 ml Balance -260 ml Intake Oral 3140 ml Output Urine Total 3400 ml # Voids 1 Laboratory Labs Laboratory Tests Test 04/03/19 08:38 04/03/19 09:38 Prothrombin Time 12.9 SEC (11.7-14.0) Prothromb Time International Ratio 1.0 (0.8-1.1) Heparin Anti-Xa Act, Unfractionated 0.34 IU/mL (0.30-0.70) Physical Exam HEENT: Neck Supple W Full Motion Chest: Symmetric LUNGS: Other (basilar crackles) Heart: irregularly irregular (AFIB RVR) Abdomen: Soft N/T Extremities: No Calf Tenderness Neurology: alert, oriented, follow commands Assessment Assessment 1. Chronic AFIB: RVR now controlled 2. LLE DVT; diagnosed 03/31/19. On heparin gtt. 3. Dyspnea; AFIB with RVR likely contributor 4. COPD 5. Hypothyroidism 6. Schizophrenia 7. Diastolic CHF: appears compensated Recommendations 1. Responding well with increased metoprolol 2. Coumadin, bridge with lovenox. 3. SNU today 4. Follow up May 29 9:15 LITTLE PHILLIP APRN Apr 03, 2019 12:15
[2019-04-03 15:00] VITALS: BP 148/93
--- NOTE | 2019-04-03 15:09 | NUR ---
SS following up with discharge planning. SS phoned and faxed clinical updates to [facility], ; fax [phone]. SS will continue to follow for discharge planning.
[2019-04-03] MEDS ORDERED: WARFARIN 5 MG TABLET. PO ONE (16:00)
[2019-04-03] MEDS: ACETAMINOPHEN 325 MG TABLET. PO PRN (16:53)
[2019-04-03 19:00] VITALS: BP 168/92
[2019-04-03] MEDS: LEVOTHYROXINE 50 MCG TABLET PO SCH (20:51)
[2019-04-03] MEDS: FAMOTIDINE 20 MG TABLET. PO SCH (20:51)
[2019-04-03 23:08] VITALS: BP 116/60
[2019-04-04 03:11] VITALS: BP 106/67
[2019-04-04 04:58] LABS: PROTHROMBIN TIME PATIENT 14.1 SEC (11.7-14.0)
--- NOTE | 2019-04-04 05:37 | NUR ---
UFH 0.42, no change per protocol.
--- NOTE | 2019-04-04 07:44 | PDOC ---
PROGRESS NOTES History of Present Illness History of Present Illness ASSESSMENT AND PLAN: Atrial fibrillation with rapid ventricular rate chronic obstructive pulmonary disease, no evidence for acute or chronic pulmonary embolism. Mild centrilobular and paraseptal pulmonary emphysema. admitted. consult Pulmonary consult Cardiology. home meds, cardiac monitoring, serial enzymes, serial EKGs. Deep vein thrombosis prophylaxis. Full code. bronchodilators Heparin and / Coumadin per Cardiology. 29 MIN PT EXAM, CHART REVIEW, > 50% OF TIME SPENT WITH EXAM, CHART REVIEW, PT CARE COORDINATION Vitals Vitals Vital Signs Date Time Temp Pulse Resp B/P (MAP) Pulse Ox O2 Delivery O2 Flow Rate FiO2 04/04/19 03:11 97.9 75 20 106/67 (80) 91 Room Air 97.9 Physical Exam Physical Exam GENERAL: No apparent distress. Alert and oriented. HEENT: Head is normocephalic, atraumatic, pupils were equally round and reactive to light and accommodation. NECK: Supple, no JVD, no thyromegaly was noted. LUNGS: She has decreased breath sounds and some wheezing. HEART: RRR, S1, S2 present. Peripheral pulses intact, no obvious murmurs were noted. ABDOMEN: Soft, nontender. Positive bowel sounds no organomegaly, normal bowel sounds. EXTREMITIES: Without any cyanosis, clubbing, or edema. Pedal pulses intact, Homans sign is negative. NEUROLOGIC: Normal speech, normal tone. A & O x3, moves all extremities, no obvious focal deficits. PSYCHIATRIC: Normal affect, normal mood. Stable. SKIN: No ulcerations or rashes, good skin turgor, no jaundice. VASCULAR: Good capillary refill, neurovascular bundle appears to be intact. General: Alert, Cooperative, No acute distress Heart: Regular rate, Normal S1, Normal S2 Lungs: Wheezing (RESOLVED) Abdomen: Soft, No tenderness Extremities: No edema, Normal pulses Skin: No breakdown, No significant lesion Labs LABS Laboratory Tests Test 04/03/19 08:38 04/03/19 09:38 04/04/19 04:25 Prothrombin Time 12.9 SEC (11.7-14.0) 14.1 SEC (11.7-14.0) Prothromb Time International Ratio 1.0 (0.8-1.1) 1.1 (0.8-1.1) Heparin Anti-Xa Act, Unfractionated 0.34 IU/mL (0.30-0.70) 0.42 IU/mL (0.30-0.70) Assessment and Plan Assessmemt and Plan Problems Medical Problems: (1) Atrial fibrillation with RVR Status: Acute (2) Chronic obstructive airway disease Status: Acute (3) Deep venous thrombosis Status: Acute (4) Dyspnea Status: Acute Comment Review of Relevant I have reviewed the following items [place] (where applicable) has been applied. Labs Laboratory Tests Test 04/03/19 08:38 04/03/19 09:38 04/04/19 04:25 Prothrombin Time 12.9 SEC (11.7-14.0) 14.1 SEC (11.7-14.0) Prothromb Time International Ratio 1.0 (0.8-1.1) 1.1 (0.8-1.1) Heparin Anti-Xa Act, Unfractionated 0.34 IU/mL (0.30-0.70) 0.42 IU/mL (0.30-0.70) Laboratory Tests Test 04/03/19 08:38 04/03/19 09:38 04/04/19 04:25 Prothrombin Time 12.9 SEC (11.7-14.0) 14.1 SEC (11.7-14.0) Prothromb Time International Ratio 1.0 (0.8-1.1) 1.1 (0.8-1.1) Heparin Anti-Xa Act, Unfractionated 0.34 IU/mL (0.30-0.70) 0.42 IU/mL (0.30-0.70) Medications Current Medications Albuterol/ Ipratropium (Duoneb) 3 ml 1X ONCE NEB Last administered on 03/31/19at 13:39; Start 03/31/19 at 13:30; Stop 03/31/19 at 13:31; Status DC Methylprednisolone Sodium Succinate (SOLU-Medrol 125MG VIAL) 125 mg 1X ONCE IV Last administered on 03/31/19at 13:16; Start 03/31/19 at 13:30; Stop 03/31/19 at 13:31; Status DC Iohexol (Omnipaque 350 Mg/ml) 100 ml 1X ONCE IV Last administered on 03/31/19 14:02; Start 03/31/19 at 14:00; Stop 03/31/19 at 14:01; Status DC Info (CONTRAST GIVEN -- Rx MONITORING) 1 each PRN DAILY PRN MC SEE COMMENTS; Start 03/31/19 at 14:00; Stop 04/02/19 at 13:59; Status DC Heparin Sodium/ Dextrose 500 ml @ 25.1 mls/hr CONT PRN IV SEE COMMENTS Last administered on 04/03/19at 10:42; Start 03/31/19 at 14:15 Heparin Sodium (Porcine) (Heparin Sodium) 2,350 unit PRN Q6HRS PRN IV FOR UFH LEVEL LESS THAN 0.2; Start 03/31/19 at 14:15 Heparin Sodium (Porcine) (Heparin Sodium) 1,200 unit PRN Q6HRS PRN IV FOR UFH LEVEL 0.2 - 0.29; Start 03/31/19 at 14:15 Heparin Sodium (Porcine) (Heparin Sodium) 6,300 unit 1X ONCE IV Last administered on 03/31/19at 15:37; Start 03/31/19 at 15:45; Stop 03/31/19 at 15:46; Status DC Doxycycline Hyclate 100 mg/ Dextrose 100 ml @ 50 mls/hr 1X ONCE IV Last administered on 03/31/19at 15:58; Start 03/31/19 at 15:15; Stop 03/31/19 at 17:14; Status DC Albuterol/ Ipratropium (Duoneb) 3 ml RTQID NEB Last administered on 04/01/19at 11:11; Start 03/31/19 at 16:00; Stop 04/01/19 at 15:59; Status DC Diltiazem HCl (Cardizem Iv Push) 20 mg 1X ONCE IVP Last administered on 03/31/19at 19:49; Start 03/31/19 at 19:45; Stop 03/31/19 at 19:46; Status DC Diltiazem HCl 125 mg/Dextrose 125 ml @ 5 mls/hr TITRATE STAT IV Last administered on 03/31/19at 20:26; Start 03/31/19 at 19:33; Stop 04/01/19 at 20:32; Status DC Acetaminophen (Tylenol) 650 mg PRN Q6HRS PRN PO MILD PAIN 1-3 Last administered on 04/03/19at 16:53; Start 04/01/19 at 00:30 Docusate Sodium (Colace) 200 mg PRN DAILY PRN PO CONSTIPATION 1ST CHOICE; Start 04/01/19 at 00:30 Famotidine (Pepcid) 20 mg HS PO Last administered on 04/03/19 20:52; Start 04/01/19 at 01:00 Levothyroxine Sodium (Synthroid) 50 mcg HS PO Last administered on 04/03/19 20:52; Start 04/01/19 at 01:00 Calcium/Vitamin D (Oscal D 500mg/ 200uts) 1 tab TIDWMEALS PO Last administered on 04/03/19 16:43; Start 04/01/19 at 08:00 Vitamin D (Vitamin D3) 1,000 unit DAILY PO Last administered on 04/03/19 09:11; Start 04/01/19 at 09:00 Multivitamins (Thera M Plus) 1 tab DAILY PO Last administered on 04/03/19 09:11; Start 04/01/19 at 09:00 Risperidone (RisperDAL) 3 mg BID PO Last administered on 04/03/19 20:52; Start 04/01/19 at 01:00 Metoprolol Tartrate (Lopressor) 50 mg BID PO Last administered on 04/02/19 08:31; Start 04/01/19 at 10:45; Stop 04/02/19 at 16:16; Status DC Info (Anti-Coagulation Monitoring By Pharmacy) 1 each PRN DAILY PRN MC SEE COMMENTS Last administered on 04/01/19 15:54; Start 04/01/19 at 16:00 Albuterol/ Ipratropium (Duoneb) 3 ml RTQID NEB Last administered on 04/03/19 19:57; Start 04/01/19 at 20:00 Warfarin Sodium (Coumadin Per Pharmacy) 1 each PRN DAILY PRN MC SEE COMMENTS Last administered on 04/03/19 15:17; Start 04/02/19 at 09:00 Digoxin (Lanoxin) 500 mcg 1X ONCE IV Last administered on 04/02/19 08:58; Start 04/02/19 at 09:00; Stop 04/02/19 at 09:01; Status DC Warfarin Sodium (Coumadin) 5 mg 1X WARF ONCE PO Last administered on 9/5/19at 17:42; Start 04/02/19 at 16:00; Stop 04/02/19 at 16:01; Status DC Metoprolol Tartrate (Lopressor) 75 mg BID PO Last administered on 04/03/19at 20:52; Start 04/02/19 at 21:00 Warfarin Sodium (Coumadin) 5 mg 1X WARF ONCE PO Last administered on 04/03/19at 16:43; Start 04/03/19 at 16:00; Stop 04/03/19 at 16:01; Status DC Active Scripts Active Reported Multivitamins (Multivitamin) 1 Each Tablet 1 Tab PO DAILY Taztia Xt (Diltiazem Hcl) 120 Mg Capsule.er 120 Mg PO DAILY PRN Risperdal (Risperidone) 3 Mg Tablet 3 Mg PO BID PRN Synthroid (Levothyroxine Sodium) 50 Mcg Tablet 50 Mcg PO HS Pradaxa (Dabigatran Etexilate Mesylate) 150 Mg Capsule 1 Cap PO BID Pepcid (Famotidine) 20 Mg Tablet 20 Mg PO HS Metoprolol Tartrate 25 Mg Tablet 12.5 Mg PO BID Colace (Docusate Sodium) 100 Mg Capsule 200 Mg PO PRN DAILY PRN Vitamin D3 (Cholecalciferol (Vitamin D3)) 1,000 Unit Capsule 1,000 Unit PO DAILY Caltrate 600 + D Soft Chew Tab (Calcium Carbonate/Vitamin D3) 1 Each Tab.chew 1 Each PO TID Tylenol (Acetaminophen) 325 Mg Tablet 650 Mg PO PRN Q6HRS PRN Vitals/I & O Vital Sign - Last 24 Hours 04/03/19 04/03/19 04/03/19 04/03/19 08:00 09:11 11:00 15:00 Temp 97.8 98.1 97.8 98.1 Pulse 119 84 89 Resp 12 18 B/P (MAP) 132/85 106/74 (85) 148/93 (111) Pulse Ox 92 93 O2 Delivery Room Air Room Air Room Air 04/03/19 04/03/19 04/03/19 04/03/19 15:40 19:00 19:55 19:57 Temp 97.5 97.5 Pulse 79 Resp 20 B/P (MAP) 168/92 (117) Pulse Ox 95 95 95 O2 Delivery Room Air Room Air Room Air Room Air 04/03/19 04/03/19 04/04/19 20:52 23:08 03:11 Temp 98.5 97.9 98.5 97.9 Pulse 84 88 75 Resp 20 20 B/P (MAP) 165/87 116/60 (78) 106/67 (80) Pulse Ox 94 91 O2 Delivery Room Air Room Air Intake and Output 04/03/19 04/03/19 04/04/19 15:00 23:00 07:00 Intake Total 240 ml 240 ml Output Total 400 ml 1450 ml 1200 ml Balance -160 ml -1210 ml -1200 ml MARGARET MCCARTHY MD Apr 04, 2019 07:44
[2019-04-04 07:58] VITALS: BP 156/101
[2019-04-04] MEDS: IPRATRPIUM/ALBUTEROL 0.5/2.5MG 3 ML NEBU. NEB SCH (08:08)
[2019-04-04] MEDS: CHOLECALCIFEROL (VITAMIN D3) 1,000 UNIT TABLET PO SCH (08:33)
[2019-04-04] MEDS: METOPROLOL TART IMMED RELEASE 25 MG TABLET. PO SCH ×2 (08:33→20:56)
[2019-04-04] MEDS: MULTIVITAMIN with MINERAL TABLET. PO SCH (08:34)
[2019-04-04] MEDS: CALCIUM CARB/VIT D3 500/200 TABLET. PO SCH ×3 (08:34→17:52)
[2019-04-04] MEDS: risperiDONE 1 MG TABLET. PO SCH ×2 (08:34→20:56)
--- NOTE | 2019-04-04 08:49 | PDOC ---
PULMONARY PROGRESS NOTES Subjective sob better, has cough sputum, no pain Vitals Vital Signs Date Time Temp Pulse Resp B/P (MAP) Pulse Ox O2 Delivery O2 Flow Rate FiO2 04/04/19 08:35 110 156/101 04/04/19 08:09 96 Room Air 04/04/19 07:58 97.5 20 97.5 General: Alert, No acute distress Lungs: Wheezing (RESOLVED) Cardiovascular: Other (irreg irreg) Abdomen: Soft Neuro Exam: Alert Extremities: No Edema Skin: Warm Labs Laboratory Tests Test 04/03/19 08:38 04/03/19 09:38 04/04/19 04:25 Prothrombin Time 12.9 SEC (11.7-14.0) 14.1 SEC (11.7-14.0) Prothromb Time International Ratio 1.0 (0.8-1.1) 1.1 (0.8-1.1) Heparin Anti-Xa Act, Unfractionated 0.34 IU/mL (0.30-0.70) 0.42 IU/mL (0.30-0.70) Laboratory Tests Test 04/03/19 09:38 04/04/19 04:25 Heparin Anti-Xa Act, Unfractionated 0.34 IU/mL (0.30-0.70) 0.42 IU/mL (0.30-0.70) Prothrombin Time 14.1 SEC (11.7-14.0) Prothromb Time International Ratio 1.1 (0.8-1.1) Medications Active Scripts Medications Dose Route/Sig Max Daily Dose Days Date Category Multivitamins (Multivitamin) 1 Each Tablet 1 Tab PO DAILY 03/31/19 Reported Taztia Xt (Diltiazem Hcl) 120 Mg Capsule.er 120 Mg PO DAILY PRN 03/31/19 Reported Risperdal (Risperidone) 3 Mg Tablet 3 Mg PO BID PRN 03/31/19 Reported Synthroid (Levothyroxine Sodium) 50 Mcg Tablet 50 Mcg PO HS 04/06/16 Reported Pradaxa (Dabigatran Etexilate Mesylate) 150 Mg Capsule 1 Cap PO BID 04/06/16 Reported Pepcid (Famotidine) 20 Mg Tablet 20 Mg PO HS 04/06/16 Reported Metoprolol Tartrate 25 Mg Tablet 12.5 Mg PO BID 04/06/16 Reported Colace (Docusate Sodium) 100 Mg Capsule 200 Mg PO PRN DAILY PRN 04/06/16 Reported Vitamin D3 (Cholecalciferol (Vitamin D3)) 1,000 Unit Capsule 1,000 Unit PO DAILY 04/06/16 Reported Caltrate 600 + D Soft Chew Tab (Calcium Carbonate/Vitamin D3) 1 Each Tab.chew 1 Each PO TID 04/06/16 Reported Tylenol (Acetaminophen) 325 Mg Tablet 650 Mg PO PRN Q6HRS PRN 04/06/16 Reported Impression . 1. Dyspnea secondary to atrial fibrillation with rapid ventricular response. Still in atrial fibrillation with rapid ventricular response. now controlled 2. Chronic obstructive pulmonary disease. We will clinically compensated. Unknown FEV1 and unknown duration of tobacco use. 3. Reportedly, history of deep vein thrombosis at her facility. Was on Pradaxa before coming to the hospital, now on heparin. We will get the records. Plan . RECOMMENDATIONS: 1. Pulmonary status seems to be stable. change bronchodilators to atrovent, avoid alb has afib w rvr . add ICS 2. Heparin and / Coumadin per Cardiology. 3. was on Pradaxa.at [place] 4. We will obtain records of her prior DVT history. 5. Discussed with RN. We will follow along with you. stable pulmonary status FRANCESCO HARRY MD Apr 04, 2019 08:49
[2019-04-04] MEDS ORDERED: BUDESONIDE 0.5 MG/2 ML NEBU. NEB ONE (09:00)
[2019-04-04] MEDS: HEPARIN 25,000UTS/500ML PREMIX 500 ML IV PRN (10:50)
[2019-04-04 11:26] VITALS: BP_SYST 142; BP_SYST 156; BP_DIAS 101; BP_DIAS 84
[2019-04-04] MEDS: IPRATROPIUM BROMIDE 0.5 MG/2.5 ML NEBU. NEB SCH ×3 (12:31→20:33)
[2019-04-04 15:55] VITALS: BP 143/76
[2019-04-04] MEDS ORDERED: WARFARIN 7.5 MG TABLET. PO ONE (16:00)
[2019-04-04] MEDS: ACETAMINOPHEN 325 MG TABLET. PO PRN (17:54)
[2019-04-04 19:49] VITALS: BP 141/89
[2019-04-04] MEDS: BUDESONIDE 0.5 MG/2 ML NEBU. NEB SCH (20:33)
[2019-04-04] MEDS: LEVOTHYROXINE 50 MCG TABLET PO SCH (20:56)
[2019-04-04] MEDS: FAMOTIDINE 20 MG TABLET. PO SCH (20:56)
[2019-04-04 22:05] VITALS: BP 122/74
[2019-04-05 03:24] VITALS: BP 126/65
[2019-04-05 05:48] LABS: BASO # 0.1 x10^3/uL (0.0-0.2); BASO % 1 % (0-3); EOS # 0.2 x10^3/uL (0.0-0.7); EOS % 2 % (0-3); HEMATOCRIT 39.1 % (36.0-47.0); HEMOGLOBIN 13.5 g/dL (12.0-15.5); LYMPH % 24 % (24-48); MEAN CORPUSCULAR HEMOGLOBIN 34 pg (25-35); MEAN CORPUSCULAR HGB CONC 35 g/dL (31-37); MEAN CORPUSCULAR VOLUME 98 fL (79-100); MONO # 0.6 x10^3/uL (0.0-1.1); MONO % 7 % (0-9); NEUT # 5.6 x10^3/uL (1.8-7.7); NEUT % 67 % (31-73); PLATELET COUNT 297 x10^3/uL (140-400); RED BLOOD COUNT 3.98 x10^6/uL (3.50-5.40); RED CELL DISTRIBUTION WIDTH 13.3 % (11.5-14.5); WHITE BLOOD COUNT 8.4 x10^3/uL (4.0-11.0)
[2019-04-05 05:54] LABS: CALCIUM 9.2 mg/dL (8.5-10.1); CREATININE 0.9 mg/dL (0.6-1.0); GFR 62.3; POTASSIUM 4.5 mmol/L (3.5-5.1)
[2019-04-05 06:09] LABS: PROTHROMBIN TIME PATIENT 17.8 SEC (11.7-14.0)
[2019-04-05 07:00] VITALS: BP 152/84
--- NOTE | 2019-04-05 07:36 | PDOC ---
PULMONARY PROGRESS NOTES Subjective sob better, cough better, no pain Vitals Vital Signs Date Time Temp Pulse Resp B/P (MAP) Pulse Ox O2 Delivery O2 Flow Rate FiO2 04/05/19 03:24 97.4 61 16 126/65 (85) Room Air 97.4 04/04/19 15:55 98 ROS: No Nausea General: Alert, No acute distress Lungs: Crackles, Other (deminished bs) Cardiovascular: Other (irreg irreg) Abdomen: Soft, Non-tender Neuro Exam: Alert Extremities: No Edema Skin: Warm Labs Laboratory Tests Test 04/03/19 08:38 04/03/19 09:38 04/04/19 04:25 04/05/19 05:05 Prothrombin Time 12.9 SEC (11.7-14.0) 14.1 SEC (11.7-14.0) 17.8 SEC (11.7-14.0) Prothromb Time International Ratio 1.0 (0.8-1.1) 1.1 (0.8-1.1) 1.5 (0.8-1.1) Heparin Anti-Xa Act, Unfractionated 0.34 IU/mL (0.30-0.70) 0.42 IU/mL (0.30-0.70) 0.32 IU/mL (0.30-0.70) White Blood Count 8.4 x10^3/uL (4.0-11.0) Red Blood Count 3.98 x10^6/uL (3.50-5.40) Hemoglobin 13.5 g/dL (12.0-15.5) Hematocrit 39.1 % (36.0-47.0) Mean Corpuscular Volume 98 fL (79-100) Mean Corpuscular Hemoglobin 34 pg (25-35) Mean Corpuscular Hemoglobin Concent 35 g/dL (31-37) Red Cell Distribution Width 13.3 % (11.5-14.5) Platelet Count 297 x10^3/uL (140-400) Neutrophils (%) (Auto) 67 % (31-73) Lymphocytes (%) (Auto) 24 % (24-48) Monocytes (%) (Auto) 7 % (0-9) Eosinophils (%) (Auto) 2 % (0-3) Basophils (%) (Auto) 1 % (0-3) Neutrophils # (Auto) 5.6 x10^3/uL (1.8-7.7) Lymphocytes # (Auto) 2.0 x10^3/uL (1.0-4.8) Monocytes # (Auto) 0.6 x10^3/uL (0.0-1.1) Eosinophils # (Auto) 0.2 x10^3/uL (0.0-0.7) Basophils # (Auto) 0.1 x10^3/uL (0.0-0.2) Sodium Level 135 mmol/L (136-145) Potassium Level 4.5 mmol/L (3.5-5.1) Chloride Level 99 mmol/L (98-107) Carbon Dioxide Level 29 mmol/L (21-32) Anion Gap 7 (6-14) Blood Urea Nitrogen 13 mg/dL (7-20) Creatinine 0.9 mg/dL (0.6-1.0) Estimated GFR (Cockcroft-Gault) 62.3 Glucose Level 103 mg/dL (70-99) Calcium Level 9.2 mg/dL (8.5-10.1) Laboratory Tests Test 04/05/19 05:05 White Blood Count 8.4 x10^3/uL (4.0-11.0) Red Blood Count 3.98 x10^6/uL (3.50-5.40) Hemoglobin 13.5 g/dL (12.0-15.5) Hematocrit 39.1 % (36.0-47.0) Mean Corpuscular Volume 98 fL (79-100) Mean Corpuscular Hemoglobin 34 pg (25-35) Mean Corpuscular Hemoglobin Concent 35 g/dL (31-37) Red Cell Distribution Width 13.3 % (11.5-14.5) Platelet Count 297 x10^3/uL (140-400) Neutrophils (%) (Auto) 67 % (31-73) Lymphocytes (%) (Auto) 24 % (24-48) Monocytes (%) (Auto) 7 % (0-9) Eosinophils (%) (Auto) 2 % (0-3) Basophils (%) (Auto) 1 % (0-3) Neutrophils # (Auto) 5.6 x10^3/uL (1.8-7.7) Lymphocytes # (Auto) 2.0 x10^3/uL (1.0-4.8) Monocytes # (Auto) 0.6 x10^3/uL (0.0-1.1) Eosinophils # (Auto) 0.2 x10^3/uL (0.0-0.7) Basophils # (Auto) 0.1 x10^3/uL (0.0-0.2) Prothrombin Time 17.8 SEC (11.7-14.0) Prothromb Time International Ratio 1.5 (0.8-1.1) Heparin Anti-Xa Act, Unfractionated 0.32 IU/mL (0.30-0.70) Sodium Level 135 mmol/L (136-145) Potassium Level 4.5 mmol/L (3.5-5.1) Chloride Level 99 mmol/L (98-107) Carbon Dioxide Level 29 mmol/L (21-32) Anion Gap 7 (6-14) Blood Urea Nitrogen 13 mg/dL (7-20) Creatinine 0.9 mg/dL (0.6-1.0) Estimated GFR (Cockcroft-Gault) 62.3 Glucose Level 103 mg/dL (70-99) Calcium Level 9.2 mg/dL (8.5-10.1) Medications Active Scripts Medications Dose Route/Sig Max Daily Dose Days Date Category Multivitamins (Multivitamin) 1 Each Tablet 1 Tab PO DAILY 03/31/19 Reported Taztia Xt (Diltiazem Hcl) 120 Mg Capsule.er 120 Mg PO DAILY PRN 03/31/19 Reported Risperdal (Risperidone) 3 Mg Tablet 3 Mg PO BID PRN 03/31/19 Reported Synthroid (Levothyroxine Sodium) 50 Mcg Tablet 50 Mcg PO HS 04/06/16 Reported Pradaxa (Dabigatran Etexilate Mesylate) 150 Mg Capsule 1 Cap PO BID 04/06/16 Reported Pepcid (Famotidine) 20 Mg Tablet 20 Mg PO HS 04/06/16 Reported Metoprolol Tartrate 25 Mg Tablet 12.5 Mg PO BID 04/06/16 Reported Colace (Docusate Sodium) 100 Mg Capsule 200 Mg PO PRN DAILY PRN 04/06/16 Reported Vitamin D3 (Cholecalciferol (Vitamin D3)) 1,000 Unit Capsule 1,000 Unit PO DAILY 04/06/16 Reported Caltrate 600 + D Soft Chew Tab (Calcium Carbonate/Vitamin D3) 1 Each Tab.chew 1 Each PO TID 04/06/16 Reported Tylenol (Acetaminophen) 325 Mg Tablet 650 Mg PO PRN Q6HRS PRN 04/06/16 Reported Impression . 1. Dyspnea secondary to atrial fibrillation with rapid ventricular response. in afib, tachy at times 2. Chronic obstructive pulmonary disease. We will clinically compensated. Unknown FEV1 and unknown duration of tobacco use. 3. Reportedly, history of deep vein thrombosis at her facility. Was on Pradaxa before coming to the hospital, now on heparin. We will get the records. Plan . RECOMMENDATIONS: 1. Pulmonary status seems to be stable. bronchodilators, atrovent only, avoid alb has afib w rvr . cont ICS 2. Heparin and / Coumadin per Cardiology. 3. was on Pradaxa.at [place] 4. We will obtain records of her prior DVT history. 5. Discussed with RN. We will follow along with you. stable pulmonary status FRANCESCO HARRY MD Apr 05, 2019 07:36
--- NOTE | 2019-04-05 08:05 | NUR ---
Pharmacy Warfarin Dosing Note S:Pharmacy consulted to assist with anticoagulation therapy started with target INR: 2 -3 O:ZINA LOWE is a 68 year old F with Atrial Fibrillation DVT/PE LABS: Last INR: 1.5 Last HGB: 13.5 Last HCT: 39.5 Last PLT: 297 Last dose of 7.5 mg given on 04/04/19 at 1648 Previous Regimen: Vitamin K given: Drug Interaction Changes: Ongoing Drug Interactions: A:INR of 1.5 is below desired range. Target range for this patient is: 2 -3 P: Warfarin dose: 6 mg Today at 1600 Bridge Therapy: Heparin Therapeutic CONT Next INR due 04/06/19 Pharmacy anticoagulation service will continue to follow. NATALIE BUSBY [facility], 04/05/19 0805
[2019-04-05] MEDS: BUDESONIDE 0.5 MG/2 ML NEBU. NEB SCH ×2 (08:07→19:55)
[2019-04-05] MEDS: IPRATROPIUM BROMIDE 0.5 MG/2.5 ML NEBU. NEB SCH ×4 (08:07→19:55)
[2019-04-05] MEDS: CALCIUM CARB/VIT D3 500/200 TABLET. PO SCH ×3 (08:43→16:12)
[2019-04-05] MEDS: MULTIVITAMIN with MINERAL TABLET. PO SCH (08:43)
[2019-04-05] MEDS: CHOLECALCIFEROL (VITAMIN D3) 1,000 UNIT TABLET PO SCH (08:43)
[2019-04-05] MEDS: METOPROLOL TART IMMED RELEASE 25 MG TABLET. PO SCH ×2 (08:43→21:17)
[2019-04-05] MEDS: risperiDONE 1 MG TABLET. PO SCH ×2 (08:46→21:17)
--- NOTE | 2019-04-05 09:26 | PDOC ---
PROGRESS NOTES History of Present Illness History of Present Illness ASSESSMENT AND PLAN: Atrial fibrillation with rapid ventricular rate //Heparin and / Coumadin per Cardiology. chronic obstructive pulmonary disease, no evidence for acute or chronic pulmonary embolism. Mild centrilobular and paraseptal pulmonary emphysema. admitted. consult Pulmonary consult Cardiology. home meds, cardiac monitoring, serial enzymes, serial EKGs. Deep vein thrombosis prophylaxis. Full code. bronchodilators Heparin and / Coumadin per Cardiology. 27 MIN PT EXAM, CHART REVIEW, > 50% OF TIME SPENT WITH EXAM, CHART REVIEW, PT CARE COORDINATION Vitals Vitals Vital Signs Date Time Temp Pulse Resp B/P (MAP) Pulse Ox O2 Delivery O2 Flow Rate FiO2 04/05/19 08:47 94 152/84 04/05/19 08:08 Room Air 04/05/19 07:00 97.4 16 97.4 04/04/19 15:55 98 Physical Exam Physical Exam GENERAL: No apparent distress. Alert and oriented. HEENT: Head is normocephalic, atraumatic, pupils were equally round and reactive to light and accommodation. NECK: Supple, no JVD, no thyromegaly was noted. LUNGS: She has decreased breath sounds and some wheezing. HEART: RRR, S1, S2 present. Peripheral pulses intact, no obvious murmurs were noted. ABDOMEN: Soft, nontender. Positive bowel sounds no organomegaly, normal bowel sounds. EXTREMITIES: Without any cyanosis, clubbing, or edema. Pedal pulses intact, Homans sign is negative. NEUROLOGIC: Normal speech, normal tone. A & O x3, moves all extremities, no obvious focal deficits. PSYCHIATRIC: Normal affect, normal mood. Stable. SKIN: No ulcerations or rashes, good skin turgor, no jaundice. VASCULAR: Good capillary refill, neurovascular bundle appears to be intact. General: Alert, Cooperative, No acute distress Heart: Regular rate, Normal S1, Normal S2 Lungs: Crackles, Other (deminished bs) Abdomen: Soft, No tenderness Extremities: No edema, Normal pulses Skin: No breakdown, No significant lesion Labs LABS Laboratory Tests Test 04/05/19 05:05 White Blood Count 8.4 x10^3/uL (4.0-11.0) Red Blood Count 3.98 x10^6/uL (3.50-5.40) Hemoglobin 13.5 g/dL (12.0-15.5) Hematocrit 39.1 % (36.0-47.0) Mean Corpuscular Volume 98 fL (79-100) Mean Corpuscular Hemoglobin 34 pg (25-35) Mean Corpuscular Hemoglobin Concent 35 g/dL (31-37) Red Cell Distribution Width 13.3 % (11.5-14.5) Platelet Count 297 x10^3/uL (140-400) Neutrophils (%) (Auto) 67 % (31-73) Lymphocytes (%) (Auto) 24 % (24-48) Monocytes (%) (Auto) 7 % (0-9) Eosinophils (%) (Auto) 2 % (0-3) Basophils (%) (Auto) 1 % (0-3) Neutrophils # (Auto) 5.6 x10^3/uL (1.8-7.7) Lymphocytes # (Auto) 2.0 x10^3/uL (1.0-4.8) Monocytes # (Auto) 0.6 x10^3/uL (0.0-1.1) Eosinophils # (Auto) 0.2 x10^3/uL (0.0-0.7) Basophils # (Auto) 0.1 x10^3/uL (0.0-0.2) Prothrombin Time 17.8 SEC (11.7-14.0) Prothromb Time International Ratio 1.5 (0.8-1.1) Heparin Anti-Xa Act, Unfractionated 0.32 IU/mL (0.30-0.70) Sodium Level 135 mmol/L (136-145) Potassium Level 4.5 mmol/L (3.5-5.1) Chloride Level 99 mmol/L (98-107) Carbon Dioxide Level 29 mmol/L (21-32) Anion Gap 7 (6-14) Blood Urea Nitrogen 13 mg/dL (7-20) Creatinine 0.9 mg/dL (0.6-1.0) Estimated GFR (Cockcroft-Gault) 62.3 Glucose Level 103 mg/dL (70-99) Calcium Level 9.2 mg/dL (8.5-10.1) Assessment and Plan Assessmemt and Plan Problems Medical Problems: (1) Atrial fibrillation with RVR Status: Acute (2) Chronic obstructive airway disease Status: Acute (3) Deep venous thrombosis Status: Acute (4) Dyspnea Status: Acute Comment Review of Relevant I have reviewed the following items [place] (where applicable) has been applied. Labs Laboratory Tests Test 04/03/19 09:38 04/04/19 04:25 04/05/19 05:05 Heparin Anti-Xa Act, Unfractionated 0.34 IU/mL (0.30-0.70) 0.42 IU/mL (0.30-0.70) 0.32 IU/mL (0.30-0.70) Prothrombin Time 14.1 SEC (11.7-14.0) 17.8 SEC (11.7-14.0) Prothromb Time International Ratio 1.1 (0.8-1.1) 1.5 (0.8-1.1) White Blood Count 8.4 x10^3/uL (4.0-11.0) Red Blood Count 3.98 x10^6/uL (3.50-5.40) Hemoglobin 13.5 g/dL (12.0-15.5) Hematocrit 39.1 % (36.0-47.0) Mean Corpuscular Volume 98 fL (79-100) Mean Corpuscular Hemoglobin 34 pg (25-35) Mean Corpuscular Hemoglobin Concent 35 g/dL (31-37) Red Cell Distribution Width 13.3 % (11.5-14.5) Platelet Count 297 x10^3/uL (140-400) Neutrophils (%) (Auto) 67 % (31-73) Lymphocytes (%) (Auto) 24 % (24-48) Monocytes (%) (Auto) 7 % (0-9) Eosinophils (%) (Auto) 2 % (0-3) Basophils (%) (Auto) 1 % (0-3) Neutrophils # (Auto) 5.6 x10^3/uL (1.8-7.7) Lymphocytes # (Auto) 2.0 x10^3/uL (1.0-4.8) Monocytes # (Auto) 0.6 x10^3/uL (0.0-1.1) Eosinophils # (Auto) 0.2 x10^3/uL (0.0-0.7) Basophils # (Auto) 0.1 x10^3/uL (0.0-0.2) Sodium Level 135 mmol/L (136-145) Potassium Level 4.5 mmol/L (3.5-5.1) Chloride Level 99 mmol/L (98-107) Carbon Dioxide Level 29 mmol/L (21-32) Anion Gap 7 (6-14) Blood Urea Nitrogen 13 mg/dL (7-20) Creatinine 0.9 mg/dL (0.6-1.0) Estimated GFR (Cockcroft-Gault) 62.3 Glucose Level 103 mg/dL (70-99) Calcium Level 9.2 mg/dL (8.5-10.1) Laboratory Tests Test 04/05/19 05:05 White Blood Count 8.4 x10^3/uL (4.0-11.0) Red Blood Count 3.98 x10^6/uL (3.50-5.40) Hemoglobin 13.5 g/dL (12.0-15.5) Hematocrit 39.1 % (36.0-47.0) Mean Corpuscular Volume 98 fL (79-100) Mean Corpuscular Hemoglobin 34 pg (25-35) Mean Corpuscular Hemoglobin Concent 35 g/dL (31-37) Red Cell Distribution Width 13.3 % (11.5-14.5) Platelet Count 297 x10^3/uL (140-400) Neutrophils (%) (Auto) 67 % (31-73) Lymphocytes (%) (Auto) 24 % (24-48) Monocytes (%) (Auto) 7 % (0-9) Eosinophils (%) (Auto) 2 % (0-3) Basophils (%) (Auto) 1 % (0-3) Neutrophils # (Auto) 5.6 x10^3/uL (1.8-7.7) Lymphocytes # (Auto) 2.0 x10^3/uL (1.0-4.8) Monocytes # (Auto) 0.6 x10^3/uL (0.0-1.1) Eosinophils # (Auto) 0.2 x10^3/uL (0.0-0.7) Basophils # (Auto) 0.1 x10^3/uL (0.0-0.2) Prothrombin Time 17.8 SEC (11.7-14.0) Prothromb Time International Ratio 1.5 (0.8-1.1) Heparin Anti-Xa Act, Unfractionated 0.32 IU/mL (0.30-0.70) Sodium Level 135 mmol/L (136-145) Potassium Level 4.5 mmol/L (3.5-5.1) Chloride Level 99 mmol/L (98-107) Carbon Dioxide Level 29 mmol/L (21-32) Anion Gap 7 (6-14) Blood Urea Nitrogen 13 mg/dL (7-20) Creatinine 0.9 mg/dL (0.6-1.0) Estimated GFR (Cockcroft-Gault) 62.3 Glucose Level 103 mg/dL (70-99) Calcium Level 9.2 mg/dL (8.5-10.1) Medications Current Medications Albuterol/ Ipratropium (Duoneb) 3 ml 1X ONCE NEB Last administered on 03/31/19at 13:39; Start 03/31/19 at 13:30; Stop 03/31/19 at 13:31; Status DC Methylprednisolone Sodium Succinate (SOLU-Medrol 125MG VIAL) 125 mg 1X ONCE IV Last administered on 03/31/19at 13:16; Start 03/31/19 at 13:30; Stop 03/31/19 at 13:31; Status DC Iohexol (Omnipaque 350 Mg/ml) 100 ml 1X ONCE IV Last administered on 03/31/19at 14:02; Start 03/31/19 at 14:00; Stop 03/31/19 at 14:01; Status DC Info (CONTRAST GIVEN -- Rx MONITORING) 1 each PRN DAILY PRN MC SEE COMMENTS; Start 03/31/19 at 14:00; Stop 04/02/19 at 13:59; Status DC Heparin Sodium/ Dextrose 500 ml @ 25.1 mls/hr CONT PRN IV SEE COMMENTS Last administered on 04/04/19at 10:51; Start 03/31/19 at 14:15 Heparin Sodium (Porcine) (Heparin Sodium) 2,350 unit PRN Q6HRS PRN IV FOR UFH LEVEL LESS THAN 0.2; Start 03/31/19 at 14:15 Heparin Sodium (Porcine) (Heparin Sodium) 1,200 unit PRN Q6HRS PRN IV FOR UFH LEVEL 0.2 - 0.29; Start 03/31/19 at 14:15 Heparin Sodium (Porcine) (Heparin Sodium) 6,300 unit 1X ONCE IV Last administered on 03/31/19 15:37; Start 03/31/19 at 15:45; Stop 03/31/19 at 15:46; Status DC Doxycycline Hyclate 100 mg/ Dextrose 100 ml @ 50 mls/hr 1X ONCE IV Last administered on 03/31/19 15:58; Start 03/31/19 at 15:15; Stop 03/31/19 at 17:14; Status DC Albuterol/ Ipratropium (Duoneb) 3 ml RTQID NEB Last administered on 04/01/19 11:11; Start 03/31/19 at 16:00; Stop 04/01/19 at 15:59; Status DC Diltiazem HCl (Cardizem Iv Push) 20 mg 1X ONCE IVP Last administered on 03/31/19 19:49; Start 03/31/19 at 19:45; Stop 03/31/19 at 19:46; Status DC Diltiazem HCl 125 mg/Dextrose 125 ml @ 5 mls/hr TITRATE STAT IV Last administered on 03/31/19at 20:26; Start 03/31/19 at 19:33; Stop 04/01/19 at 20:32; Status DC Acetaminophen (Tylenol) 650 mg PRN Q6HRS PRN PO MILD PAIN 1-3 Last administered on 04/04/19 17:54; Start 04/01/19 at 00:30 Docusate Sodium (Colace) 200 mg PRN DAILY PRN PO CONSTIPATION 1ST CHOICE; Start 04/01/19 at 00:30 Famotidine (Pepcid) 20 mg HS PO Last administered on 04/04/19 20:56; Start 04/01/19 at 01:00 Levothyroxine Sodium (Synthroid) 50 mcg HS PO Last administered on 04/04/19 20:56; Start 04/01/19 at 01:00 Calcium/Vitamin D (Oscal D 500mg/ 200uts) 1 tab TIDWMEALS PO Last administered on 04/05/19 08:47; Start 04/01/19 at 08:00 Vitamin D (Vitamin D3) 1,000 unit DAILY PO Last administered on 04/05/19 08:47; Start 04/01/19 at 09:00 Multivitamins (Thera M Plus) 1 tab DAILY PO Last administered on 04/05/19 08:47; Start 04/01/19 at 09:00 Risperidone (RisperDAL) 3 mg BID PO Last administered on 04/05/19 08:47; Start 04/01/19 at 01:00 Metoprolol Tartrate (Lopressor) 50 mg BID PO Last administered on 04/02/19 08:31; Start 04/01/19 at 10:45; Stop 04/02/19 at 16:16; Status DC Info (Anti-Coagulation Monitoring By Pharmacy) 1 each PRN DAILY PRN MC SEE COMMENTS Last administered on 04/01/19 15:54; Start 04/01/19 at 16:00 Albuterol/ Ipratropium (Duoneb) 3 ml RTQID NEB Last administered on 04/04/19 08:08; Start 04/01/19 at 20:00; Stop 04/04/19 at 08:50; Status DC Warfarin Sodium (Coumadin Per Pharmacy) 1 each PRN DAILY PRN MC SEE COMMENTS Last administered on 04/05/19 08:05; Start 04/02/19 at 09:00 Digoxin (Lanoxin) 500 mcg 1X ONCE IV Last administered on 04/02/19 08:58; Start 04/02/19 at 09:00; Stop 04/02/19 at 09:01; Status DC Warfarin Sodium (Coumadin) 5 mg 1X WARF ONCE PO Last administered on 04/02/19 17:42; Start 04/02/19 at 16:00; Stop 04/02/19 at 16:01; Status DC Metoprolol Tartrate (Lopressor) 75 mg BID PO Last administered on 04/05/19 08:47; Start 04/02/19 at 21:00 Warfarin Sodium (Coumadin) 5 mg 1X WARF ONCE PO Last administered on 04/03/19 16:43; Start 04/03/19 at 16:00; Stop 04/03/19 at 16:01; Status DC Ipratropium [place] (Atrovent) 0.5 mg RTQID NEB Last administered on 04/05/19 08:07; Start 04/04/19 at 12:00 Budesonide (Pulmicort) 0.5 mg RTBID NEB Last administered on 04/05/19at 08:07; Start 04/04/19 at 20:00 Budesonide (Pulmicort) 0.5 mg 1X ONCE NEB Last administered on 04/04/19at 12:31; Start 04/04/19 at 09:00; Stop 04/04/19 at 09:01; Status DC Warfarin Sodium (Coumadin) 7.5 mg 1X WARF ONCE PO Last administered on 04/04/19at 16:48; Start 04/04/19 at 16:00; Stop 04/04/19 at 16:01; Status DC Warfarin Sodium (Coumadin) 6 mg 1X WARF ONCE PO ; Start 04/05/19 at 16:00; Stop 04/05/19 at 16:01 Active Scripts Active Reported Multivitamins (Multivitamin) 1 Each Tablet 1 Tab PO DAILY Taztia Xt (Diltiazem Hcl) 120 Mg Capsule.er 120 Mg PO DAILY PRN Risperdal (Risperidone) 3 Mg Tablet 3 Mg PO BID PRN Synthroid (Levothyroxine Sodium) 50 Mcg Tablet 50 Mcg PO HS Pradaxa (Dabigatran Etexilate Mesylate) 150 Mg Capsule 1 Cap PO BID Pepcid (Famotidine) 20 Mg Tablet 20 Mg PO HS Metoprolol Tartrate 25 Mg Tablet 12.5 Mg PO BID Colace (Docusate Sodium) 100 Mg Capsule 200 Mg PO PRN DAILY PRN Vitamin D3 (Cholecalciferol (Vitamin D3)) 1,000 Unit Capsule 1,000 Unit PO DAILY Caltrate 600 + D Soft Chew Tab (Calcium Carbonate/Vitamin D3) 1 Each Tab.chew 1 Each PO TID Tylenol (Acetaminophen) 325 Mg Tablet 650 Mg PO PRN Q6HRS PRN Vitals/I & O Vital Sign - Last 24 Hours 04/04/19 04/04/19 04/04/19 04/04/19 11:26 12:45 15:49 15:55 Temp 97.5 97.4 97.5 97.4 Pulse 74 81 Resp 20 20 B/P (MAP) 142/84 (103) 143/76 (98) Pulse Ox 98 94 98 O2 Delivery Room Air Room Air Room Air Room Air 04/04/19 04/04/19 04/04/19 04/04/19 19:49 20:11 20:34 20:56 Temp 98.1 98.1 Pulse 99 99 Resp 16 B/P (MAP) 141/89 (106) 141/89 O2 Delivery Room Air Room Air Room Air 04/04/19 04/05/19 04/05/19 04/05/19 22:05 03:24 07:00 08:00 Temp 97.5 97.4 97.4 97.5 97.4 97.4 Pulse 98 61 94 Resp 16 16 16 B/P (MAP) 122/74 (90) 126/65 (85) 152/84 (106) O2 Delivery Room Air Room Air Room Air 04/05/19 04/05/19 08:08 08:47 Pulse 94 B/P (MAP) 152/84 O2 Delivery Room Air Intake and Output 04/04/19 04/04/19 04/05/19 15:00 23:00 07:00 Intake Total 250 ml 1740 ml 1570 ml Output Total 1300 ml 400 ml Balance 250 ml 440 ml 1170 ml MARGARET MCCARTHY MD Apr 05, 2019 09:26
[2019-04-05 11:00] VITALS: BP 154/91
[2019-04-05] MEDS: HEPARIN 25,000UTS/500ML PREMIX 500 ML IV PRN (11:54)
[2019-04-05 15:00] VITALS: BP 112/59
[2019-04-05] MEDS ORDERED: WARFARIN 3 MG TABLET. PO ONE (16:00)
[2019-04-05 19:11] VITALS: BP 138/87
[2019-04-05] MEDS: FAMOTIDINE 20 MG TABLET. PO SCH (21:17)
[2019-04-05] MEDS: LEVOTHYROXINE 50 MCG TABLET PO SCH (21:17)
[2019-04-05 22:25] VITALS: BP 125/53
[2019-04-06 03:19] VITALS: BP 116/61
[2019-04-06 07:22] VITALS: BP 157/92
[2019-04-06] MEDS: IPRATROPIUM BROMIDE 0.5 MG/2.5 ML NEBU. NEB SCH ×3 (07:34→15:54)
[2019-04-06] MEDS: BUDESONIDE 0.5 MG/2 ML NEBU. NEB SCH (07:34)
[2019-04-06 08:24] LABS: PROTHROMBIN TIME PATIENT 21.1 SEC (11.7-14.0)
[2019-04-06 08:26] LABS: UNFRACTIONATED HEPARIN TESTING 0.5 IU/mL (0.30-0.70)
[2019-04-06] MEDS: MULTIVITAMIN with MINERAL TABLET. PO SCH (08:47)
[2019-04-06] MEDS: risperiDONE 1 MG TABLET. PO SCH (08:48)
[2019-04-06] MEDS: CHOLECALCIFEROL (VITAMIN D3) 1,000 UNIT TABLET PO SCH (08:48)
[2019-04-06] MEDS: CALCIUM CARB/VIT D3 500/200 TABLET. PO SCH ×3 (08:48→17:15)
[2019-04-06] MEDS: METOPROLOL TART IMMED RELEASE 25 MG TABLET. PO SCH (08:49)
[2019-04-06 10:40] VITALS: BP 137/79
[2019-04-06] MEDS: ANTI-COAG MONITOR BY PHARMACY. MC PRN (10:48)
--- NOTE | 2019-04-06 10:51 | NUR ---
Pharmacy Warfarin Dosing Note S: Pharmacy consulted to assist with anticoagulation therapy O: ZINA LOWE is a 68 year old F with Atrial Fibrillation; DVT/PE LABS: Last INR: 1.9 Last HGB: 13.5 Last HCT: 39.1 Last PLT: 297 Last dose of 6 mg given on 04/05/19 at 1613 A:INR of 1.9 is below desired range. Target range for this patient is: 2 -3 P: Warfarin dose: 5 mg Today at 1600 Bridge Therapy: Heparin Therapeutic Next INR due tomorrow Pharmacy anticoagulation service will continue to follow. Sandhya Pena Farhana, 04/06/19 5000
--- NOTE | 2019-04-06 11:10 | PDOC ---
PROGRESS NOTES History of Present Illness History of Present Illness ASSESSMENT AND PLAN: Atrial fibrillation with rapid ventricular rate //Heparin and / Coumadin per Cardiology. chronic obstructive pulmonary disease, no evidence for acute or chronic pulmonary embolism. Mild centrilobular and paraseptal pulmonary emphysema. admitted. consult Pulmonary consult Cardiology. home meds, cardiac monitoring, serial enzymes, serial EKGs. Deep vein thrombosis prophylaxis. Full code. bronchodilators Heparin and / Coumadin per Cardiology. OK TO DISCHARGE 04/06 27 MIN PT EXAM D/C PLANNING , CHART REVIEW, > 50% OF TIME SPENT WITH EXAM, CHART REVIEW, PT CARE COORDINATION Vitals Vitals Vital Signs Date Time Temp Pulse Resp B/P (MAP) Pulse Ox O2 Delivery O2 Flow Rate FiO2 04/06/19 10:40 97.6 103 16 137/79 (98) Room Air 97.6 04/06/19 07:34 100 Physical Exam Physical Exam GENERAL: No apparent distress. Alert and oriented. HEENT: Head is normocephalic, atraumatic, pupils were equally round and reactive to light and accommodation. NECK: Supple, no JVD, no thyromegaly was noted. LUNGS: She has decreased breath sounds and some wheezing. HEART: RRR, S1, S2 present. Peripheral pulses intact, no obvious murmurs were noted. ABDOMEN: Soft, nontender. Positive bowel sounds no organomegaly, normal bowel sounds. EXTREMITIES: Without any cyanosis, clubbing, or edema. Pedal pulses intact, Homans sign is negative. NEUROLOGIC: Normal speech, normal tone. A & O x3, moves all extremities, no obvious focal deficits. PSYCHIATRIC: Normal affect, normal mood. Stable. SKIN: No ulcerations or rashes, good skin turgor, no jaundice. VASCULAR: Good capillary refill, neurovascular bundle appears to be intact. General: Alert, Cooperative, No acute distress Heart: Regular rate, Normal S1, Normal S2 Lungs: Crackles, Other (deminished bs) Abdomen: Normal bowel sounds, Soft, No tenderness Extremities: No cyanosis, No edema, Normal pulses Skin: No breakdown, No significant lesion Labs LABS Laboratory Tests Test 04/06/19 07:00 Prothrombin Time 21.1 SEC (11.7-14.0) Prothromb Time International Ratio 1.9 (0.8-1.1) Heparin Anti-Xa Act, Unfractionated 0.50 IU/mL (0.30-0.70) Assessment and Plan Assessmemt and Plan Problems Medical Problems: (1) Atrial fibrillation with RVR Status: Acute (2) Chronic obstructive airway disease Status: Acute (3) Deep venous thrombosis Status: Acute (4) Dyspnea Status: Acute Comment Review of Relevant I have reviewed the following items [place] (where applicable) has been applied. Labs Laboratory Tests Test 04/05/19 05:05 04/06/19 07:00 White Blood Count 8.4 x10^3/uL (4.0-11.0) Red Blood Count 3.98 x10^6/uL (3.50-5.40) Hemoglobin 13.5 g/dL (12.0-15.5) Hematocrit 39.1 % (36.0-47.0) Mean Corpuscular Volume 98 fL (79-100) Mean Corpuscular Hemoglobin 34 pg (25-35) Mean Corpuscular Hemoglobin Concent 35 g/dL (31-37) Red Cell Distribution Width 13.3 % (11.5-14.5) Platelet Count 297 x10^3/uL (140-400) Neutrophils (%) (Auto) 67 % (31-73) Lymphocytes (%) (Auto) 24 % (24-48) Monocytes (%) (Auto) 7 % (0-9) Eosinophils (%) (Auto) 2 % (0-3) Basophils (%) (Auto) 1 % (0-3) Neutrophils # (Auto) 5.6 x10^3/uL (1.8-7.7) Lymphocytes # (Auto) 2.0 x10^3/uL (1.0-4.8) Monocytes # (Auto) 0.6 x10^3/uL (0.0-1.1) Eosinophils # (Auto) 0.2 x10^3/uL (0.0-0.7) Basophils # (Auto) 0.1 x10^3/uL (0.0-0.2) Prothrombin Time 17.8 SEC (11.7-14.0) 21.1 SEC (11.7-14.0) Prothromb Time International Ratio 1.5 (0.8-1.1) 1.9 (0.8-1.1) Heparin Anti-Xa Act, Unfractionated 0.32 IU/mL (0.30-0.70) 0.50 IU/mL (0.30-0.70) Sodium Level 135 mmol/L (136-145) Potassium Level 4.5 mmol/L (3.5-5.1) Chloride Level 99 mmol/L (98-107) Carbon Dioxide Level 29 mmol/L (21-32) Anion Gap 7 (6-14) Blood Urea Nitrogen 13 mg/dL (7-20) Creatinine 0.9 mg/dL (0.6-1.0) Estimated GFR (Cockcroft-Gault) 62.3 Glucose Level 103 mg/dL (70-99) Calcium Level 9.2 mg/dL (8.5-10.1) Laboratory Tests Test 04/06/19 07:00 Prothrombin Time 21.1 SEC (11.7-14.0) Prothromb Time International Ratio 1.9 (0.8-1.1) Heparin Anti-Xa Act, Unfractionated 0.50 IU/mL (0.30-0.70) Medications Current Medications Albuterol/ Ipratropium (Duoneb) 3 ml 1X ONCE NEB Last administered on 03/31/19at 13:39; Start 03/31/19 at 13:30; Stop 03/31/19 at 13:31; Status DC Methylprednisolone Sodium Succinate (SOLU-Medrol 125MG VIAL) 125 mg 1X ONCE IV Last administered on 03/31/19at 13:16; Start 03/31/19 at 13:30; Stop 03/31/19 at 13:31; Status DC Iohexol (Omnipaque 350 Mg/ml) 100 ml 1X ONCE IV Last administered on 03/31/19at 14:02; Start 03/31/19 at 14:00; Stop 03/31/19 at 14:01; Status DC Info (CONTRAST GIVEN -- Rx MONITORING) 1 each PRN DAILY PRN MC SEE COMMENTS; Start 03/31/19 at 14:00; Stop 04/02/19 at 13:59; Status DC Heparin Sodium/ Dextrose 500 ml @ 25.1 mls/hr CONT PRN IV SEE COMMENTS Last administered on 04/05/19at 11:54; Start 03/31/19 at 14:15 Heparin Sodium (Porcine) (Heparin Sodium) 2,350 unit PRN Q6HRS PRN IV FOR UFH LEVEL LESS THAN 0.2; Start 03/31/19 at 14:15 Heparin Sodium (Porcine) (Heparin Sodium) 1,200 unit PRN Q6HRS PRN IV FOR UFH LEVEL 0.2 - 0.29; Start 03/31/19 at 14:15 Heparin Sodium (Porcine) (Heparin Sodium) 6,300 unit 1X ONCE IV Last administered on 03/31/19at 15:37; Start 03/31/19 at 15:45; Stop 03/31/19 at 15:46; Status DC Doxycycline Hyclate 100 mg/ Dextrose 100 ml @ 50 mls/hr 1X ONCE IV Last administered on 03/31/19at 15:58; Start 03/31/19 at 15:15; Stop 03/31/19 at 17:14; Status DC Albuterol/ Ipratropium (Duoneb) 3 ml RTQID NEB Last administered on 04/01/19at 11:11; Start 03/31/19 at 16:00; Stop 04/01/19 at 15:59; Status DC Diltiazem HCl (Cardizem Iv Push) 20 mg 1X ONCE IVP Last administered on 03/31/19at 19:49; Start 03/31/19 at 19:45; Stop 03/31/19 at 19:46; Status DC Diltiazem HCl 125 mg/Dextrose 125 ml @ 5 mls/hr TITRATE STAT IV Last administered on 03/31/19at 20:26; Start 03/31/19 at 19:33; Stop 04/01/19 at 20:32; Status DC Acetaminophen (Tylenol) 650 mg PRN Q6HRS PRN PO MILD PAIN 1-3 Last administered on 04/04/19at 17:54; Start 04/01/19 at 00:30 Docusate Sodium (Colace) 200 mg PRN DAILY PRN PO CONSTIPATION 1ST CHOICE; Start 04/01/19 at 00:30 Famotidine (Pepcid) 20 mg HS PO Last administered on 04/05/19at 21:18; Start 04/01/19 at 01:00 Levothyroxine Sodium (Synthroid) 50 mcg HS PO Last administered on 04/05/19 21:18; Start 04/01/19 at 01:00 Calcium/Vitamin D (Oscal D 500mg/ 200uts) 1 tab TIDWMEALS PO Last administered on 04/06/19 08:52; Start 04/01/19 at 08:00 Vitamin D (Vitamin D3) 1,000 unit DAILY PO Last administered on 04/06/19 08:52; Start 04/01/19 at 09:00 Multivitamins (Thera M Plus) 1 tab DAILY PO Last administered on 04/06/19 08:52; Start 04/01/19 at 09:00 Risperidone (RisperDAL) 3 mg BID PO Last administered on 04/06/19 08:52; Start 04/01/19 at 01:00 Metoprolol Tartrate (Lopressor) 50 mg BID PO Last administered on 04/02/19 08:31; Start 04/01/19 at 10:45; Stop 04/02/19 at 16:16; Status DC Info (Anti-Coagulation Monitoring By Pharmacy) 1 each PRN DAILY PRN MC SEE COMMENTS Last administered on 04/06/19 10:49; Start 04/01/19 at 16:00 Albuterol/ Ipratropium (Duoneb) 3 ml RTQID NEB Last administered on 04/04/19 08:08; Start 04/01/19 at 20:00; Stop 04/04/19 at 08:50; Status DC Warfarin Sodium (Coumadin Per Pharmacy) 1 each PRN DAILY PRN MC SEE COMMENTS Last administered on 04/06/19 10:51; Start 04/02/19 at 09:00 Digoxin (Lanoxin) 500 mcg 1X ONCE IV Last administered on 04/02/19 08:58; Start 04/02/19 at 09:00; Stop 04/02/19 at 09:01; Status DC Warfarin Sodium (Coumadin) 5 mg 1X WARF ONCE PO Last administered on 04/02/19 17:42; Start 04/02/19 at 16:00; Stop 04/02/19 at 16:01; Status DC Metoprolol Tartrate (Lopressor) 75 mg BID PO Last administered on 04/06/19 08:52; Start 04/02/19 at 21:00 Warfarin Sodium (Coumadin) 5 mg 1X WARF ONCE PO Last administered on 04/03/19 16:43; Start 04/03/19 at 16:00; Stop 04/03/19 at 16:01; Status DC Ipratropium [place] (Atrovent) 0.5 mg RTQID NEB Last administered on 04/06/19at 07:34; Start 04/04/19 at 12:00 Budesonide (Pulmicort) 0.5 mg RTBID NEB Last administered on 04/06/19at 07:34; Start 04/04/19 at 20:00 Budesonide (Pulmicort) 0.5 mg 1X ONCE NEB Last administered on 04/04/19at 12:31; Start 04/04/19 at 09:00; Stop 04/04/19 at 09:01; Status DC Warfarin Sodium (Coumadin) 7.5 mg 1X WARF ONCE PO Last administered on 04/04/19at 16:48; Start 04/04/19 at 16:00; Stop 04/04/19 at 16:01; Status DC Warfarin Sodium (Coumadin) 6 mg 1X WARF ONCE PO Last administered on 04/05/19at 16:13; Start 04/05/19 at 16:00; Stop 04/05/19 at 16:01; Status DC Warfarin Sodium (Coumadin) 5 mg 1X WARF ONCE PO ; Start 04/06/19 at 16:00; Stop 04/06/19 at 16:01 Active Scripts Active Reported Multivitamins (Multivitamin) 1 Each Tablet 1 Tab PO DAILY Taztia Xt (Diltiazem Hcl) 120 Mg Capsule.er 120 Mg PO DAILY PRN Risperdal (Risperidone) 3 Mg Tablet 3 Mg PO BID PRN Synthroid (Levothyroxine Sodium) 50 Mcg Tablet 50 Mcg PO HS Pradaxa (Dabigatran Etexilate Mesylate) 150 Mg Capsule 1 Cap PO BID Pepcid (Famotidine) 20 Mg Tablet 20 Mg PO HS Metoprolol Tartrate 25 Mg Tablet 12.5 Mg PO BID Colace (Docusate Sodium) 100 Mg Capsule 200 Mg PO PRN DAILY PRN Vitamin D3 (Cholecalciferol (Vitamin D3)) 1,000 Unit Capsule 1,000 Unit PO DAILY Caltrate 600 + D Soft Chew Tab (Calcium Carbonate/Vitamin D3) 1 Each Tab.chew 1 Each PO TID Tylenol (Acetaminophen) 325 Mg Tablet 650 Mg PO PRN Q6HRS PRN Vitals/I & O Vital Sign - Last 24 Hours 04/05/19 04/05/19 04/05/19 9/8/19 11:47 15:00 15:30 19:11 Temp 97.7 97.6 97.7 97.6 Pulse 92 100 Resp 16 16 B/P (MAP) 112/59 (76) 138/87 (104) O2 Delivery Room Air Room Air Room Air Room Air 04/05/19 04/05/19 04/05/19 04/05/19 19:55 19:56 20:00 21:18 Pulse 100 B/P (MAP) 138/87 O2 Delivery Room Air Room Air Room Air 04/05/19 04/06/19 04/06/19 04/06/19 22:25 03:19 07:22 07:34 Temp 97.9 97.6 97.5 97.9 97.6 97.5 Pulse 95 76 100 Resp 18 16 16 B/P (MAP) 125/53 (77) 116/61 (79) 157/92 (113) Pulse Ox 95 100 O2 Delivery Room Air Room Air Room Air Room Air 04/06/19 04/06/19 08:52 10:40 Temp 97.6 97.6 Pulse 120 103 Resp 16 B/P (MAP) 137/79 (98) O2 Delivery Room Air Intake and Output 04/05/19 04/05/19 04/06/19 14:59 22:59 06:59 Intake Total 400 ml 640 ml 893 ml Output Total 300 ml 1300 ml 300 ml Balance 100 ml -660 ml 593 ml MARGARET MCCARTHY MD Apr 06, 2019 11:10
--- NOTE | 2019-04-06 13:04 | PDOC ---
PULMONARY PROGRESS NOTES Subjective sob better, cough better, no pain Vitals Vital Signs Date Time Temp Pulse Resp B/P (MAP) Pulse Ox O2 Delivery O2 Flow Rate FiO2 04/06/19 11:31 100 Room Air 04/06/19 10:40 97.6 103 16 137/79 (98) 97.6 ROS: No Nausea General: Alert, No acute distress Lungs: Other (deminished bs) Cardiovascular: Other (irreg irreg) Abdomen: Soft, Non-tender Neuro Exam: Alert Extremities: No Edema Skin: Warm Labs Laboratory Tests Test 04/05/19 05:05 04/06/19 07:00 White Blood Count 8.4 x10^3/uL (4.0-11.0) Red Blood Count 3.98 x10^6/uL (3.50-5.40) Hemoglobin 13.5 g/dL (12.0-15.5) Hematocrit 39.1 % (36.0-47.0) Mean Corpuscular Volume 98 fL (79-100) Mean Corpuscular Hemoglobin 34 pg (25-35) Mean Corpuscular Hemoglobin Concent 35 g/dL (31-37) Red Cell Distribution Width 13.3 % (11.5-14.5) Platelet Count 297 x10^3/uL (140-400) Neutrophils (%) (Auto) 67 % (31-73) Lymphocytes (%) (Auto) 24 % (24-48) Monocytes (%) (Auto) 7 % (0-9) Eosinophils (%) (Auto) 2 % (0-3) Basophils (%) (Auto) 1 % (0-3) Neutrophils # (Auto) 5.6 x10^3/uL (1.8-7.7) Lymphocytes # (Auto) 2.0 x10^3/uL (1.0-4.8) Monocytes # (Auto) 0.6 x10^3/uL (0.0-1.1) Eosinophils # (Auto) 0.2 x10^3/uL (0.0-0.7) Basophils # (Auto) 0.1 x10^3/uL (0.0-0.2) Prothrombin Time 17.8 SEC (11.7-14.0) 21.1 SEC (11.7-14.0) Prothromb Time International Ratio 1.5 (0.8-1.1) 1.9 (0.8-1.1) Heparin Anti-Xa Act, Unfractionated 0.32 IU/mL (0.30-0.70) 0.50 IU/mL (0.30-0.70) Sodium Level 135 mmol/L (136-145) Potassium Level 4.5 mmol/L (3.5-5.1) Chloride Level 99 mmol/L (98-107) Carbon Dioxide Level 29 mmol/L (21-32) Anion Gap 7 (6-14) Blood Urea Nitrogen 13 mg/dL (7-20) Creatinine 0.9 mg/dL (0.6-1.0) Estimated GFR (Cockcroft-Gault) 62.3 Glucose Level 103 mg/dL (70-99) Calcium Level 9.2 mg/dL (8.5-10.1) Laboratory Tests Test 04/06/19 07:00 Prothrombin Time 21.1 SEC (11.7-14.0) Prothromb Time International Ratio 1.9 (0.8-1.1) Heparin Anti-Xa Act, Unfractionated 0.50 IU/mL (0.30-0.70) Medications Active Scripts Medications Dose Route/Sig Max Daily Dose Days Date Category Multivitamins (Multivitamin) 1 Each Tablet 1 Tab PO DAILY 03/31/19 Reported Taztia Xt (Diltiazem Hcl) 120 Mg Capsule.er 120 Mg PO DAILY PRN 03/31/19 Reported Risperdal (Risperidone) 3 Mg Tablet 3 Mg PO BID PRN 03/31/19 Reported Synthroid (Levothyroxine Sodium) 50 Mcg Tablet 50 Mcg PO HS 04/06/16 Reported Pradaxa (Dabigatran Etexilate Mesylate) 150 Mg Capsule 1 Cap PO BID 04/06/16 Reported Pepcid (Famotidine) 20 Mg Tablet 20 Mg PO HS 04/06/16 Reported Metoprolol Tartrate 25 Mg Tablet 12.5 Mg PO BID 04/06/16 Reported Colace (Docusate Sodium) 100 Mg Capsule 200 Mg PO PRN DAILY PRN 04/06/16 Reported Vitamin D3 (Cholecalciferol (Vitamin D3)) 1,000 Unit Capsule 1,000 Unit PO DAILY 04/06/16 Reported Caltrate 600 + D Soft Chew Tab (Calcium Carbonate/Vitamin D3) 1 Each Tab.chew 1 Each PO TID 04/06/16 Reported Tylenol (Acetaminophen) 325 Mg Tablet 650 Mg PO PRN Q6HRS PRN 04/06/16 Reported Impression . 1. Dyspnea secondary to atrial fibrillation with rapid ventricular response. in afib, tachy at times 2. Chronic obstructive pulmonary disease. We will clinically compensated. Unknown FEV1 and unknown duration of tobacco use. 3. Reportedly, history of deep vein thrombosis at her facility. now on coumadin Plan . 1. Pulmonary status seems to be stable. bronchodilators, atrovent only, avoid alb has afib w rvr . cont ICS 2. Heparin and / Coumadin per Cardiology. can dc heparin. INR 1.9 3. was on Pradaxa.at CT 4. We will obtain records of her prior DVT history. 5. Discussed with RN. We will follow along with you. stable pulmonary status ok with dc to [facility] Cochran MD Apr 06, 2019 13:04
[2019-04-06 14:21] VITALS: BP 128/65
--- NOTE | 2019-04-06 15:35 | PDOC3 ---
Discharge Summary Date of Admission: Mar 31, 2019 Date of Discharge: Apr 06, 2019 Follow-Up: 1-2 days Admitting Diagnosis comment: DISCHARGE DX Atrial fibrillation with rapid ventricular rate //Heparin and / Coumadin per Cardiology. chronic obstructive pulmonary disease, no evidence for acute or chronic pulmonary embolism. Mild centrilobular and paraseptal pulmonary emphysema. admitted. consult Pulmonary consult Cardiology. home meds, cardiac monitoring, serial enzymes, serial EKGs. Deep vein thrombosis prophylaxis. Full code. bronchodilators Heparin and / Coumadin per Cardiology. OK TO DISCHARGE 04/06 ON COUMADIN 27 MIN PT EXAM D/C PLANNING , CHART REVIEW, > 50% OF TIME SPENT WITH EXAM, CHART REVIEW, PT CARE COORDINATION Vitals Vitals Vital Signs Date Time Temp Pulse Resp B/P (MAP) Pulse Ox O2 Delivery O2 Flow Rate FiO2 04/06/19 10:40 97.6 103 16 137/79 (98) Room Air 97.6 04/06/19 07:34 100 Physical Exam Physical Exam GENERAL: No apparent distress. Alert and oriented. HEENT: Head is normocephalic, atraumatic, pupils were equally round and reactive to light and accommodation. NECK: Supple, no JVD, no thyromegaly was noted. LUNGS: She has decreased breath sounds and some wheezing. HEART: RRR, S1, S2 present. Peripheral pulses intact, no obvious murmurs were noted. ABDOMEN: Soft, nontender. Positive bowel sounds no organomegaly, normal bowel sounds. EXTREMITIES: Without any cyanosis, clubbing, or edema. Pedal pulses intact, Homans sign is negative. NEUROLOGIC: Normal speech, normal tone. A & O x3, moves all extremities, no obvious focal deficits. PSYCHIATRIC: Normal affect, normal mood. Stable. SKIN: No ulcerations or rashes, good skin turgor, no jaundice. VASCULAR: Good capillary refill, neurovascular bundle appears to be intact. General: Alert, Cooperative, No acute distress Heart: Regular rate, Normal S1, Normal S2 Lungs: Crackles, Other (deminished bs) Abdomen: Normal bowel sounds, Soft, No tenderness Extremities: No cyanosis, No edema, Normal pulses Skin: No breakdown, No significant lesion FINAL DIAGNOSIS Problems Medical Problems: (1) Atrial fibrillation with RVR Status: Acute (2) Chronic obstructive airway disease Status: Acute (3) Deep venous thrombosis Status: Acute (4) Dyspnea Status: Acute Brief Hospital Course Ms. Smith is a 68 old [sex] who presented with [ A FIB RVR, ] CONDITION AT DISCHARGE: Improved Discharge Medications Current Medications Albuterol/ Ipratropium (Duoneb) 3 ml 1X ONCE NEB Last administered on 03/31/19at 13:39; Start 03/31/19 at 13:30; Stop 03/31/19 at 13:31; Status DC Methylprednisolone Sodium Succinate (SOLU-Medrol 125MG VIAL) 125 mg 1X ONCE IV Last administered on 03/31/19at 13:16; Start 03/31/19 at 13:30; Stop 03/31/19 at 13:31; Status DC Iohexol (Omnipaque 350 Mg/ml) 100 ml 1X ONCE IV Last administered on 03/31/19at 14:02; Start 03/31/19 at 14:00; Stop 03/31/19 at 14:01; Status DC Info (CONTRAST GIVEN -- Rx MONITORING) 1 each PRN DAILY PRN MC SEE COMMENTS; Start 03/31/19 at 14:00; Stop 04/02/19 at 13:59; Status DC Heparin Sodium/ Dextrose 500 ml @ 25.1 mls/hr CONT PRN IV SEE COMMENTS Last administered on 04/05/19at 11:54; Start 03/31/19 at 14:15 Heparin Sodium (Porcine) (Heparin Sodium) 2,350 unit PRN Q6HRS PRN IV FOR UFH LEVEL LESS THAN 0.2; Start 03/31/19 at 14:15 Heparin Sodium (Porcine) (Heparin Sodium) 1,200 unit PRN Q6HRS PRN IV FOR UFH LEVEL 0.2 - 0.29; Start 03/31/19 at 14:15 Heparin Sodium (Porcine) (Heparin Sodium) 6,300 unit 1X ONCE IV Last administered on 03/31/19at 15:37; Start 03/31/19 at 15:45; Stop 03/31/19 at 15:46; Status DC Doxycycline Hyclate 100 mg/ Dextrose 100 ml @ 50 mls/hr 1X ONCE IV Last administered on 03/31/19at 15:58; Start 03/31/19 at 15:15; Stop 03/31/19 at 17:14; Status DC Albuterol/ Ipratropium (Duoneb) 3 ml RTQID NEB Last administered on 04/01/19 11:11; Start 03/31/19 at 16:00; Stop 04/01/19 at 15:59; Status DC Diltiazem HCl (Cardizem Iv Push) 20 mg 1X ONCE IVP Last administered on 03/31/19 19:49; Start 03/31/19 at 19:45; Stop 03/31/19 at 19:46; Status DC Diltiazem HCl 125 mg/Dextrose 125 ml @ 5 mls/hr TITRATE STAT IV Last administered on 03/31/19 20:26; Start 03/31/19 at 19:33; Stop 04/01/19 at 20:32; Status DC Acetaminophen (Tylenol) 650 mg PRN Q6HRS PRN PO MILD PAIN 1-3 Last administered on 04/04/19 17:54; Start 04/01/19 at 00:30 Docusate Sodium (Colace) 200 mg PRN DAILY PRN PO CONSTIPATION 1ST CHOICE; Start 04/01/19 at 00:30 Famotidine (Pepcid) 20 mg HS PO Last administered on 04/05/19 21:18; Start 04/01/19 at 01:00 Levothyroxine Sodium (Synthroid) 50 mcg HS PO Last administered on 04/05/19 21:18; Start 04/01/19 at 01:00 Calcium/Vitamin D (Oscal D 500mg/ 200uts) 1 tab TIDWMEALS PO Last administered on 04/06/19 08:52; Start 04/01/19 at 08:00 Vitamin D (Vitamin D3) 1,000 unit DAILY PO Last administered on 04/06/19 08:52; Start 04/01/19 at 09:00 Multivitamins (Thera M Plus) 1 tab DAILY PO Last administered on 04/06/19 08:52; Start 04/01/19 at 09:00 Risperidone (RisperDAL) 3 mg BID PO Last administered on 04/06/19 08:52; Start 04/01/19 at 01:00 Metoprolol Tartrate (Lopressor) 50 mg BID PO Last administered on 9/5/19at 08:31; Start 04/01/19 at 10:45; Stop 04/02/19 at 16:16; Status DC Info (Anti-Coagulation Monitoring By Pharmacy) 1 each PRN DAILY PRN MC SEE COMMENTS Last administered on 04/06/19 10:49; Start 04/01/19 at 16:00 Albuterol/ Ipratropium (Duoneb) 3 ml RTQID NEB Last administered on 04/04/19 08:08; Start 04/01/19 at 20:00; Stop 04/04/19 at 08:50; Status DC Warfarin Sodium (Coumadin Per Pharmacy) 1 each PRN DAILY PRN MC SEE COMMENTS Last administered on 04/06/19 10:51; Start 04/02/19 at 09:00 Digoxin (Lanoxin) 500 mcg 1X ONCE IV Last administered on 04/02/19 08:58; Start 04/02/19 at 09:00; Stop 04/02/19 at 09:01; Status DC Warfarin Sodium (Coumadin) 5 mg 1X WARF ONCE PO Last administered on 04/02/19 17:42; Start 04/02/19 at 16:00; Stop 04/02/19 at 16:01; Status DC Metoprolol Tartrate (Lopressor) 75 mg BID PO Last administered on 04/06/19 08 :52; Start 04/02/19 at 21:00 Warfarin Sodium (Coumadin) 5 mg 1X WARF ONCE PO Last administered on 04/03/19 16:43; Start 04/03/19 at 16:00; Stop 04/03/19 at 16:01; Status DC Ipratropium [place] (Atrovent) 0.5 mg RTQID NEB Last administered on 04/06/19 11:31; Start 04/04/19 at 12:00 Budesonide (Pulmicort) 0.5 mg RTBID NEB Last administered on 04/06/19 07:34; Start 04/04/19 at 20:00 Budesonide (Pulmicort) 0.5 mg 1X ONCE NEB Last administered on 04/04/19 12:31; Start 04/04/19 at 09:00; Stop 04/04/19 at 09:01; Status DC Warfarin Sodium (Coumadin) 7.5 mg 1X WARF ONCE PO Last administered on 9/7/19at 16:48; Start 04/04/19 at 16:00; Stop 04/04/19 at 16:01; Status DC Warfarin Sodium (Coumadin) 6 mg 1X WARF ONCE PO Last administered on 04/05/19at 16:13; Start 04/05/19 at 16:00; Stop 04/05/19 at 16:01; Status DC Warfarin Sodium (Coumadin) 5 mg 1X WARF ONCE PO ; Start 04/06/19 at 16:00; Stop 04/06/19 at 16:01 Active Scripts Active Reported Multivitamins (Multivitamin) 1 Each Tablet 1 Tab PO DAILY Taztia Xt (Diltiazem Hcl) 120 Mg Capsule.er 120 Mg PO DAILY PRN Risperdal (Risperidone) 3 Mg Tablet 3 Mg PO BID PRN Synthroid (Levothyroxine Sodium) 50 Mcg Tablet 50 Mcg PO HS Pradaxa (Dabigatran Etexilate Mesylate) 150 Mg Capsule 1 Cap PO BID Pepcid (Famotidine) 20 Mg Tablet 20 Mg PO HS Metoprolol Tartrate 25 Mg Tablet 12.5 Mg PO BID Colace (Docusate Sodium) 100 Mg Capsule 200 Mg PO PRN DAILY PRN Vitamin D3 (Cholecalciferol (Vitamin D3)) 1,000 Unit Capsule 1,000 Unit PO DAILY Caltrate 600 + D Soft Chew Tab (Calcium Carbonate/Vitamin D3) 1 Each Tab.chew 1 Each PO TID Tylenol (Acetaminophen) 325 Mg Tablet 650 Mg PO PRN Q6HRS PRN Vital Signs Vital Signs Date Time Temp Pulse Resp B/P (MAP) Pulse Ox O2 Delivery O2 Flow Rate FiO2 04/06/19 14:21 97.8 85 16 128/65 (86) Room Air 97.8 04/06/19 11:31 100 Labs Laboratory Tests Test 04/05/19 05:05 04/06/19 07:00 White Blood Count 8.4 x10^3/uL (4.0-11.0) Red Blood Count 3.98 x10^6/uL (3.50-5.40) Hemoglobin 13.5 g/dL (12.0-15.5) Hematocrit 39.1 % (36.0-47.0) Mean Corpuscular Volume 98 fL (79-100) Mean Corpuscular Hemoglobin 34 pg (25-35) Mean Corpuscular Hemoglobin Concent 35 g/dL (31-37) Red Cell Distribution Width 13.3 % (11.5-14.5) Platelet Count 297 x10^3/uL (140-400) Neutrophils (%) (Auto) 67 % (31-73) Lymphocytes (%) (Auto) 24 % (24-48) Monocytes (%) (Auto) 7 % (0-9) Eosinophils (%) (Auto) 2 % (0-3) Basophils (%) (Auto) 1 % (0-3) Neutrophils # (Auto) 5.6 x10^3/uL (1.8-7.7) Lymphocytes # (Auto) 2.0 x10^3/uL (1.0-4.8) Monocytes # (Auto) 0.6 x10^3/uL (0.0-1.1) Eosinophils # (Auto) 0.2 x10^3/uL (0.0-0.7) Basophils # (Auto) 0.1 x10^3/uL (0.0-0.2) Prothrombin Time 17.8 SEC (11.7-14.0) 21.1 SEC (11.7-14.0) Prothromb Time International Ratio 1.5 (0.8-1.1) 1.9 (0.8-1.1) Heparin Anti-Xa Act, Unfractionated 0.32 IU/mL (0.30-0.70) 0.50 IU/mL (0.30-0.70) Sodium Level 135 mmol/L (136-145) Potassium Level 4.5 mmol/L (3.5-5.1) Chloride Level 99 mmol/L (98-107) Carbon Dioxide Level 29 mmol/L (21-32) Anion Gap 7 (6-14) Blood Urea Nitrogen 13 mg/dL (7-20) Creatinine 0.9 mg/dL (0.6-1.0) Estimated GFR (Cockcroft-Gault) 62.3 Glucose Level 103 mg/dL (70-99) Calcium Level 9.2 mg/dL (8.5-10.1) Laboratory Tests Test 04/06/19 07:00 Prothrombin Time 21.1 SEC (11.7-14.0) Prothromb Time International Ratio 1.9 (0.8-1.1) Heparin Anti-Xa Act, Unfractionated 0.50 IU/mL (0.30-0.70) Allergies Allergies Coded Allergies Type Severity Reaction Last Updated Verified clozapine Allergy Severe 04/06/16 Yes Disposition/Orders: Other (D/C TO [facility]) Patient Instructions D/C PLANNING 27 MIN MARGARET MCCARTHY MD Apr 06, 2019 15:35
[2019-04-06] MEDS ORDERED: BUDE0.5A NEB (15:39)
[2019-04-06] MEDS ORDERED: METO25TA4 PO (15:39)
[2019-04-06] MEDS ORDERED: WARF-78 PO (15:39)
[2019-04-06] MEDS ORDERED: IPRA0.2S5 NEB (15:39)
--- NOTE | 2019-04-06 15:40 | SNU/HH DC ---
DISCHARGE ORDERS DISCHARGE INFORMATION: FINAL DIAGNOSIS Problems Medical Problems: (1) Atrial fibrillation with RVR Status: Acute (2) Chronic obstructive airway disease Status: Acute (3) Deep venous thrombosis Status: Acute (4) Dyspnea Status: Acute CONDITION ON DISCHARGE: Stable CODE STATUS: Code Status: Full ALF: SNF STAY <30 DAYS: No HOSPICE: HOSPICE: No HOSPICE EVAL & TREAT: No LTAC: ADMIT TO LTAC: No POST DISCHARGE ORDERS: ACTIVITY ORDERS: No restrictions, Activity as tolerated WEIGHT BEARING STATUS: No restrictions DIET AFTER DISCHARGE: Cardiac CHECKS AFTER DISCHARGE: CHECKS AFTER DISCHARGE: Check blood press - daily TREATMENT/EQUIPMENT ORDERS: ADAPTIVE EQUIPMENT NEEDED: None Physical Therapy For: Evalulation/Treatment Occupational Therapy For: Evaluation/Treatment DISCHARGE MEDICATIONS: Home Meds Active Scripts Budesonide (BUDESONIDE) 0.5 Mg/2 Ml Ampul.neb, 0.5 MG NEB RTBID for LUNGS for 30 Days, #60 EACH Prov:MARGARET MCCARTHY MD 04/06/19 Metoprolol Tartrate (METOPROLOL TARTRATE) 25 Mg Tablet, 75 MG PO BID for BLOOD PRESSURE for 30 Days, #180 TAB Prov:MARGARET MCCARTHY MD 04/06/19 Warfarin Sodium (COUMADIN) 5 Mg Tablet, 5 MG PO 1X WARF for A-FIB for 14 Days, #14 TAB Prov:MARGARET MCCARTHY MD 04/06/19 Ipratropium [place] (IPRATROPIUM BROMIDE) 0.2 Mg/1 Ml Solution, 0.5 MG NEB RTQID for BREATHING for 30 Days, #120 MISC Prov:MARGARET MCCARTHY MD 04/06/19 Reported Medications Multivitamin (MULTIVITAMINS) 1 Each Tablet, 1 TAB PO DAILY for , #90 TAB 3 Refills 03/31/19 Risperidone (RISPERDAL) 3 Mg Tablet, 3 MG PO BID PRN for , TAB 03/31/19 Levothyroxine Sodium (SYNTHROID) 50 Mcg Tablet, 50 MCG PO HS for , #30 TAB 0 Refills 04/06/16 Famotidine (PEPCID) 20 Mg Tablet, 20 MG PO HS, TAB 04/06/16 Docusate Sodium (COLACE) 100 Mg Capsule, 200 MG PO PRN DAILY PRN for CONSTIPATION 04/06/16 Cholecalciferol (Vitamin D3) (VITAMIN D3) 1,000 Unit Capsule, 1000 UNIT PO DAILY 04/06/16 Calcium Carbonate/Vitamin D3 (CALTRATE 600 + D SOFT CHEW TAB) 1 Each Tab.chew, 1 EACH PO TID, TAB.CHEW 04/06/16 Acetaminophen (TYLENOL) 325 Mg Tablet, 650 MG PO PRN Q6HRS PRN for PAIN 04/06/16 Discontinued Reported Medications Diltiazem Hcl (TAZTIA XT) 120 Mg Capsule.er, 120 MG PO DAILY PRN for , CAP.SR 03/31/19 Dabigatran Etexilate Mesylate (PRADAXA) 150 Mg Capsule, 1 CAP PO BID, #180 CAP 1 Refill 04/06/16 Metoprolol Tartrate (METOPROLOL TARTRATE) 25 Mg Tablet, 12.5 MG PO BID for , #60 TAB 0 Refills 04/06/16 Levofloxacin (LEVAQUIN) 750 Mg Tablet, 1 TAB PO DAILY, #4 TAB 04/08/16 Risperidone (RISPERDAL M-TAB) 4 Mg Tab.rapdis, 8 MG PO HS, TAB 04/06/16 MARGARET MCCARTHY MD Apr 06, 2019 15:40
--- NOTE | 2019-04-06 15:47 | NUR ---
SS following up with discharge planning. Discharge orders received for return to [facility], ; fax [phone]. SS phoned and faxed discharge orders to [facility]. SS currently awaiting transportation set up at this time. SS will await further communication and will proceed accordingly with discharge planning.
[2019-04-06] MEDS ORDERED: WARFARIN 5 MG TABLET. PO ONE (16:00)
--- NOTE | 2019-04-06 16:28 | NUR ---
SS following up with discharge planning. Shashank contacted SS and reported that they could not arrange transportation. SS contacted [facility], , and arranged transportation between 1730 and 1800. Pt's RN and Shashank notified.
--- NOTE | 2019-04-06 17:31 | NUR ---
Discharge: Report called to Carlitos at [facility] at 1727. Reviewed overall visit, medications, follow up, ect. Patient discontinued her own IV without supervision. All belongings with patient. Copy of chart sent with patient. Transport assisted patient off of unit via wheelchair.
== END 2019-04-06 17:45 | DRG 309 ==
LOC: ER 12:29 → ED HOLD 15:50 → 2 SOUTH 21:00
PROVIDERS: ADMIT Internal Medicine; ATTEND Internal Medicine
DX: I48.91 Unspecified atrial fibrillation (principal); I50.30 Unspecified diastolic (congestive) heart failure; I82.442 Acute embolism and thrombosis of left tibial vein; M19.90 Unspecified osteoarthritis, unspecified site; K21.9 Gastro-esophageal reflux disease without esophagitis; E03.9 Hypothyroidism, unspecified; F20.9 Schizophrenia, unspecified; J43.9 Emphysema, unspecified; F17.210 Nicotine dependence, cigarettes, uncomplicated; Z86.718 Personal history of other venous thrombosis and embolism; Z88.8 Allergy status to other drugs, medicaments and biological substances; Z79.01 Long term (current) use of anticoagulants; Z83.3 Family history of diabetes mellitus
CPT/HCPCS: 36415; 71045; 71275; 80048; 80053; 83880; 84443; 84484; 85025; 85520; 85610; 93005; 93306; 94640; 94760; J1160; J1644; J2930; J3490; J7620; J7626; J7644; Q9967; 99285-25; G0378